=== PATIENT | female | born 1955 | race Caucasian/White ===

== ENCOUNTER → 2020-04-15 10:21 | Outpatient (BNVA) | payer MEDICARE, MEDICAID, SELFPAY | PROVIDERS: PCP Family Medicine; Referring Provider Family Medicine; Visit Provider Internal Medicine Endocrinology, Diabetes & Metabolism | DX: E11.65 Type 2 diabetes mellitus with hyperglycemia (principal); Z79.4 Long term (current) use of insulin; E78.5 Hyperlipidemia, unspecified; I10 Essential (primary) hypertension; E66.9 Obesity, unspecified; Z68.31 Body mass index [BMI] 31.0-31.9, adult; M85.80 Other specified disorders of bone density and structure, unspecified site | CPT/HCPCS: 82947; 95250; 99214 ==

== ENCOUNTER → 2020-05-03 11:13 | Outpatient (BNVA) | payer MEDICARE, MEDICAID, SELFPAY | PROVIDERS: PCP Family Medicine; Referring Provider Family Medicine; Visit Provider Internal Medicine Endocrinology, Diabetes & Metabolism | DX: Z76.89 Persons encountering health services in other specified circumstances (principal) ==

== ENCOUNTER → 2020-05-13 09:35 | Outpatient (BNVA) | payer MEDICARE, MEDICAID, SELFPAY | PROVIDERS: PCP Internal Medicine; Referring Provider Internal Medicine; Visit Provider Internal Medicine Endocrinology, Diabetes & Metabolism | DX: E11.65 Type 2 diabetes mellitus with hyperglycemia (principal); Z79.4 Long term (current) use of insulin; E78.5 Hyperlipidemia, unspecified; I10 Essential (primary) hypertension; E66.9 Obesity, unspecified; M85.80 Other specified disorders of bone density and structure, unspecified site | CPT/HCPCS: 99212 ==

== ENCOUNTER 2020-09-02 08:02 | Emergency (ER) | payer MEDICARE, MEDICAID, SELFPAY ==
[2020-09-02 08:05] VITALS: BP 151/107; PULSE 84; RESP 12; TEMP 36.8; O2SAT 95; BMI 30.4
[2020-09-02 08:30] LABS: Glucose, Whole Blood 266 mg/dL (60-115)
[2020-09-02 08:49] VITALS: BP 120/79; PULSE 83; RESP 18; O2SAT 96
--- NOTE | 2020-09-02 08:49 | ED.GENADULT ---
HPI - General Adult General Chief complaint: General Medical Stated complaint: hbs, covid + 3 weeks ago Time Seen by Provider: 09/02/20 08:21 Source: patient Mode of arrival: ambulatory Limitations: no limitations History of Present Illness HPI narrative: 64-year-old female with a past medical history of diabetes type 2 currently on long-term use insulin, hypertension, dyslipidemia, obesity, fibromyalgia, anxiety, depression, osteopenia vitamin-D deficiency presenting to the ED with complaints of elevated glucose in the 300s over the past few days despite taking her dose of Trulicity every Sunday although she is unsure of the dosing although it was recently increased to 3 mg she believes. She reports she gets associated headaches when her blood glucose gets elevated in the 300s. Reports that she was discontinued off of metformin due to it was causing her abdominal pain and diarrhea. Reports she is not prescribed any other oral or insulin diabetic medications at this time. Denies any other symptoms complaints or concerns at this time. Reports that she has not seen her doctor in over 6 months to year due to she was diagnosed with COVID on August 15, 2020 and they had to reschedule. complaint: Elevated glucose Onset (ago): day(s) (Today) Related Data Home Medications Medication Instructions Recorded Confirmed alcohol swabs pad TOPICAL 04/15/20 05/13/20 blood sugar diagnostic #10 ea 04/15/20 05/13/20 cetirizine 10 mg tablet 10 mg PO DAILY 04/15/20 05/13/20 cromolyn 4 % eye drops drp OPHTHALMIC (EYE) 04/15/20 05/13/20 duloxetine 60 mg capsule,delayed 60 mg PO DAILY 04/15/20 05/13/20 release fluticasone propionate 50 INTRANASAL 04/15/20 05/13/20 mcg/actuation nasal spray,suspension lancets 33 gauge #100 ea 04/15/20 05/13/20 omeprazole 20 mg capsule,delayed mg PO 04/15/20 05/13/20 release clonidine HCl 0.1 mg tablet 0.1 mg PO BEDTIME 05/03/20 05/13/20 topiramate 25 mg tablet 25 mg PO DAILY 05/03/20 05/13/20 Previous Rx's Medication Instructions Recorded blood-glucose meter #1 ea 05/11/20 blood-glucose meter #1 ea 05/13/20 insulin lispro protamine-lispro 15 unit SUBCUT BID 30 Days #15 ml 05/13/20 100 unit/mL (50-50) subcutaneous pen pen needle, diabetic 32 gauge x #100 ea 05/13/20 insulin aspar prot-insulin aspart 15 unit SUBCUT BID 30 Days #9 ml 05/14/20 100 unit/mL (70-30) subcutaneous pen pravastatin 40 mg tablet 40 mg PO DAILY 90 Days #90 tab 05/14/20 cholecalciferol (vitamin D3) 50 50 mcg PO DAILY 30 Days #30 cap 06/08/20 mcg (2,000 unit) capsule blood sugar diagnostic #100 ea 06/30/20 lancets 28 gauge #100 ea 06/30/20 dulaglutide 3 mg/0.5 mL 3 mg SUBCUT QWEEK 30 Days #2.5 ml 08/30/20 subcutaneous pen injector insulin glargine [Lantus Solostar 20 unit SUBCUT QPM #15 ml 09/02/20 U-100 Insulin] Allergies Allergy/AdvReac Type Severity Reaction Status Date / Time latex [LATEX] Allergy Intermediate RASH Verified 09/02/20 08:58 risedronate sodium Allergy Unknown Unknown Verified 09/02/20 08:58 fiberglass Allergy Unknown Unknown Uncoded 09/02/20 08:58 latex Allergy Unknown Unknown Uncoded 09/02/20 08:58 PLASTIC Allergy Unknown UNKNOWN Uncoded 03/18/20 16:22 statins Allergy Unknown Unknown Uncoded 09/02/20 08:58 Review of Systems Review of Systems: Constitutional : No change in activity, and no lethargy, no recent prior head injury, no increased agitation or unable to focus, No Weight loss, No Fever, No Chills, No Night Sweats, No Fatigue, No Malaise ENT/Mouth : No Hearing loss, No Ear Pain, No Nasal Congestion, No Sinus Pain, No Hoarseness, No sore throat, No Rhinorrhea, No Swallowing Difficulty Eyes: No Eye Pain, No Swelling, No Redness, No Foreign Body, No Discharge, No Vision Changes Cardiovascular : No Chest Pain, No SOB, No Dyspnea on Exertion, No Orthopnea, No Edema, No Palpitations Respiratory : No Cough, No Sputum, No Wheezing, No Smoke Exposure, No Dyspnea Gastrointestinal : No Nausea, No Vomiting, No Diarrhea, No Constipation, No abdominal Pain, No Hematochezia, No Melena Genitourinary : no irregular bleeding, No Dysuria, No Urinary Frequency, No Hematuria, No Urinary Incontinence, No Urgency, No Flank Pain, No Urinary Flow Changes, No Hesitancy Musculoskeletal : No joint pain, No Myalgias, No Joint Swelling Skin : No Skin Lesions, No rash Neuro : + Headache, no unsteady gait, no altered mental status, No Weakness, No Numbness, No Paresthesias, No Loss of Consciousness, No Dizziness, No Headache Psych : No Anxiety/Panic, No Depression, No SI/HI/AH/VH, No Social Issues, Heme/Lymph: No Bruising, No Bleeding,No Lymphadenopathy Endocrine : No Polyuria, No Polydipsia, No Temperature Intolerance Denies past medical history of HIV, recent trauma, coagulopathy, recent spinal/ epidural procedure, new medication, URI symptoms, close contacts with similar symptoms, tick bite, or known CO2 exposure. Yes all other systems are reviewed and are negative PMFSH Past Medical History Attestation statement: The following information was validated with the patient. Medical History Anxiety Depression Diabetes type 2, uncontrolled Dyslipidemia Fibromyalgia Hypertension correction (current) use of insulin Obesity (BMI 30-39.9) Osteopenia Vitamin D deficiency Surgical History History of partial hysterectomy Hx of colonoscopy Hx of tubal ligation Family History Family History Father Heart disease Diabetes Mother Diabetes Arthritis Social History Social History Smoking Status: Former smoker Tobacco Type: Cigarette Years Smoked: 10 Smoked in Last 30 Days: No Use of substances other than those prescribed or required for medical reasons: No Advance Directives: No Advance Directives Information Provided: No Physical Exam Vital Signs: Vital Signs: Last Vital Signs Temp 98.3 F 09/02/20 08:05 Pulse 83 09/02/20 08:49 Resp 18 09/02/20 08:49 BP 120/79 09/02/20 08:49 Pulse Ox 96 09/02/20 08:49 Body Mass Index 30.4 Vital signs have been reviewed as normal and appeared to be correct. Blood pressure normal. Heart rate hypertensive at 151/107. Respiration rate normal. Temperature normal. Oxygen saturation normal. Appearance: Alert. Oriented X3. No acute distress. Head: Normal external exam. Normocephalic. Atraumatic. Able to rotate head bilaterally. No temporal tenderness noted. Eyes: PERRLA. EOMI. No nystagmus noted. Conjunctiva and sclera normal. Eyelids normal. Corneal reflex normal. ENT: EAC normal. TM's Normal. Hearing normal. Pharynx normal. Uvula midline. tongue midline. Moist mucous membranes. No trismus noted. No drooling noted. No muffled voice noted. No nystagmus noted. Neck: Normal inspection. Neck supple. FROM. No adenopathy. Trachea midline. Thyroid Normal. No meningeal signs. No neck mass noted. CVS: Normal heart rate and rhythm. Heart sound normal. No murmurs noted. Pulses normal throughout. Respiratory: No respiratory distress. Painless inspiration. Breath sounds normal. No wheezes/rales/rhonchi noted. Chest nontender. No accessory muscle usage noted or decreased air movement noted. Abdomen: Soft and nontender. Bowel sounds normal in all 4 quadrants. No distention noted. No organomegaly noted. No visible injury noted. Back: No CVA tenderness. Full range of motion noted. Skin: Skin warm and dry. Normal skin color. Normal skin turgor. No rashes/lesions/lacerations noted. Extremities: No lower extremity edema. Extremities exhibit normal range of motion. Extremities nontender. Able to shrug shoulders bilaterally and keep up against resistance. Neuro: Oriented X 3. No motor deficit. No sensory deficit. Reflexes normal. Moving all extremities. No focal motor deficits. Cranial nerves II-XI intact bilaterally. Facial strength normal. Normal cognition. Speech normal. Gait normal. Strength 5/5 throughout. No pronator drift. No tremor noted. No fasciculations noted. No rigidity noted. Muscle tone normal throughout. No asterixis noted. Course Course Course Narrative: 8:45am - 64-year-old female with a past medical history of diabetes type 2 currently on long-term use insulin, hypertension, dyslipidemia, obesity, fibromyalgia, anxiety, depression, osteopenia vitamin-D deficiency presenting to the ED with complaints of elevated glucose in the 300s over the past few days despite taking her dose of Trulicity every Sunday with associated intermittent headaches. - I reviewed the patient's chart and it appears that she followed up with her gas regulator repairer on 05/13/2020 and patient decided she did not want to be on metformin due to causing her abdominal pain diarrhea, Jardiance 25 mg was stopped due to UTI and yeast infections. She was also on Lantus 22 units at bedtime although I spoke to the patient's gas regulator repairer Dr. Ting Celis who reported that the patient in May did not want to take the Lantus therefore she discontinued the dentist herself not the gas regulator repairer. Recently her PCP called the gas regulator repairer and reported that the patient's blood glucose levels were still elevated despite taking the Trulicity 1.5 mg actually every not Sunday there for 2-3 days ago the gas regulator repairer called her and explained to her that she needed to increase the dose of 3 mg although this was after she attempted to call her over multiple days. The gas regulator repairer reports that the patient is very on compliant. The gas regulator repairer reported that I can start the patient back on 20 units of Lantus at bedtime and the patient continue to follow-up with her. - On exam patient is alert and oriented x3. Mildly hypertensive at 151/107 although when recheck that is now at 120/79. No focal neuro deficits noted. Not in any acute distress. POC is 266. - Plan: Labs, UA. Provide Tylenol for her headache. Once labs are back we will discuss with the patient's about starting her back on Lantus 20 units at bedtime which was discussed with the gas regulator repairer. Reevaluation(s) Reevaluation #1: - when I went back into the patient's room she had left due to her was outside and she did not want to wait any longer although I was not notified. - therefore called the patient in her house phone and she picked up she reported she had to go due to her ride was outside I explained to her that all her labs were pretty much within normal limits except for her blood glucose level which was 266. Although I discussed with her that I spoke to her gas regulator repairer and we were starting the patient back on Lantus 20 units at bedtime every night and that she can roller picker the prescription at [facility]. Patient understands that she will be started back on Lantus and she will roller picker the prescription today. I explained to the patient to follow-up with her PCP and her gas regulator repairer and she understood and agree with this plan. Explained to her to return if any new or worsening symptoms and she understood. Time: 10:27 Medical Decision Making Medical Records Medical records reviewed: Yes I reviewed the patient's medical records. Lab Data Lab results reviewed: Yes I reviewed the patient's lab results. Result diagrams: 09/02/20 08:53 09/02/20 08:53 Labs: Lab Results 09/02/20 09/02/20 09/02/20 Range/Units 08:27 08:53 08:53 WBC 5.8 (4.8-10.8) X10*3/uL RBC 4.06 L (4.20-5.50) X10*6/uL Hgb 12.5 (12.0-16.0) g/dl Hct 36.6 L (37-47) % MCV 90.1 (80-98) fL MCH 30.8 (27.0-33.0) pg MCHC 34.2 (31.0-35.0) g/dl RDW 12.7 (11.0-16.0) % Plt Count 278 (160-400) X10*3/uL MPV 10.3 (9.4-12.3) fL Immature Gran % (Auto) 0.3 (0.0-0.4) % Neut % (Auto) 64.6 (45-73) % Lymph % (Auto) 26.4 (20-40) % Sumner % (Auto) 8.2 (2-11) % Eos % (Auto) 0.3 (0-4) % Baso % (Auto) 0.2 (0-2) % Lymph # (Auto) 1.5 (1.2-4.9) X10*3/uL Sumner # (Auto) 0.5 (0.1-1.2) X10*3/uL Eos # (Auto) 0.0 (0.0-0.4) X10*3/uL Baso # (Auto) 0.0 (0.0-0.2) X10*3/uL Abs Immat Gran (auto) 0.02 (0.00-0.03) X10*3/uL Absolute Neuts (auto) 3.8 (2.0-8.3) X10*3/uL Absolute Nucleated RBC 0.000 (0.0-0.012) X10*3/uL Nucleated RBC % (auto) 0.0 (0.0-0.2) /100WBC Smear Tech's Comments VERIFIED Hold Purple Top SEE NOTE Sodium (135-145) mmol/L Potassium (3.3-5.1) mmol/L Chloride (96-108) mmol/L Carbon Dioxide (22-29) mmol/L Anion Gap (12-20) BUN (9-16) mg/dL Creatinine (0.5-1.4) mg/dL Estim Creat Clear Calc Estimated GFR POC Glucose 266 H (60-115) mg/dL Random Glucose (60-115) mg/dL Calcium (8.4-10.2) mg/dL Magnesium (1.6-2.6) mg/dL Total Bilirubin (0.0-1.0) mg/dL Direct Bilirubin (0.0-0.5) mg/dL AST (5-31) U/L ALT (0-31) U/L Alkaline Phosphatase (39-117) U/L Total Protein (6.5-8.0) g/dL Albumin (3.5-5.0) g/dL 09/02/20 Range/Units 08:53 WBC (4.8-10.8) X10*3/uL RBC (4.20-5.50) X10*6/uL Hgb (12.0-16.0) g/dl Hct (37-47) % MCV (80-98) fL MCH (27.0-33.0) pg MCHC (31.0-35.0) g/dl RDW (11.0-16.0) % Plt Count (160-400) X10*3/uL MPV (9.4-12.3) fL Immature Gran % (Auto) (0.0-0.4) % Neut % (Auto) (45-73) % Lymph % (Auto) (20-40) % Sumner % (Auto) (2-11) % Eos % (Auto) (0-4) % Baso % (Auto) (0-2) % Lymph # (Auto) (1.2-4.9) X10*3/uL Sumner # (Auto) (0.1-1.2) X10*3/uL Eos # (Auto) (0.0-0.4) X10*3/uL Baso # (Auto) (0.0-0.2) X10*3/uL Abs Immat Gran (auto) (0.00-0.03) X10*3/uL Absolute Neuts (auto) (2.0-8.3) X10*3/uL Absolute Nucleated RBC (0.0-0.012) X10*3/uL Nucleated RBC % (auto) (0.0-0.2) /100WBC Smear Tech's Comments Hold Purple Top Sodium 135 (135-145) mmol/L Potassium 4.1 (3.3-5.1) mmol/L Chloride 99 (96-108) mmol/L Carbon Dioxide 26 (22-29) mmol/L Anion Gap 14 (12-20) BUN 9 (9-16) mg/dL Creatinine 0.77 (0.5-1.4) mg/dL Estim Creat Clear Calc 60.4 Estimated GFR > 60 POC Glucose (60-115) mg/dL Random Glucose 280 H (60-115) mg/dL Calcium 8.7 (8.4-10.2) mg/dL Magnesium 1.6 (1.6-2.6) mg/dL Total Bilirubin 0.8 (0.0-1.0) mg/dL Direct Bilirubin 0.2 (0.0-0.5) mg/dL AST 18 (5-31) U/L ALT 19 (0-31) U/L Alkaline Phosphatase 57 (39-117) U/L Total Protein 6.1 L (6.5-8.0) g/dL Albumin 3.6 (3.5-5.0) g/dL Critical Care Time Critical Care Time Critical Care Time: Yes Total Critical Care Time: 60 Attestation: I personally attest to this time spent taking care of the patient Discharge Plan Discharge Clinical Impression: Diabetes type 2, uncontrolled, Hyperglycemia Patient Disposition: Home, Self-Care Instructions: Diabetes and Exercise (ED) Prescriptions: New Lantus Solostar U-100 Insulin 100 unit/mL (3 mL) insulin pen 20 unit subcut QPM Qty: 15 RF: 0 No Action (DME) blood-glucose meter [FreeStyle Lite Meter] Kit See Rx Instructions .ROUTE .MEDSUPPLY Qty: 1 RF: 0 cholecalciferol (vitamin D3) 50 mcg (2,000 unit) capsule 50 mcg PO DAILY 30 Days Qty: 30 RF: 6 (DME) lancets [FreeStyle Lancets] 28 gauge misc See Rx Instructions .ROUTE .MEDSUPPLY Qty: 100 RF: 4 (DME) FreeStyle Lite Strips Strip See Rx Instructions .ROUTE .MEDSUPPLY Qty: 100 RF: 11 Trulicity 3 mg/0.5 mL pen injector 3 mg subcut QWEEK 30 Days Qty: 2.5 RF: 6 alcohol swabs Pads, Medicated topical RF: 0 duloxetine 60 mg capsule,delayed release(DR/EC) 60 mg PO DAILY RF: 0 (DME) FreeStyle Lite Strips Strip See Rx Instructions ea Not Applicable TID Qty: 10 RF: 0 cetirizine 10 mg tablet 10 mg PO DAILY RF: 0 fluticasone propionate 50 mcg/actuation spray,suspension intranasal RF: 0 omeprazole 20 mg capsule,delayed release(DR/EC) PO RF: 0 (DME) lancets 33 gauge misc See Rx Instructions ea Not Applicable TID Qty: 100 RF: 0 cromolyn 4 % drops ophthalmic (eye) RF: 0 clonidine HCl 0.1 mg tablet 0.1 mg PO BEDTIME RF: 0 topiramate 25 mg tablet 25 mg PO DAILY RF: 0 Humalog Mix 50-50 KwikPen 100 unit/mL (50-50) insulin pen 15 unit subcut BID 30 Days Qty: 15 RF: 4 (DME) pen needle, diabetic 32 gauge x 5/32 needle See Rx Instructions ea .ROUTE .MEDSUPPLY Qty: 100 RF: 4 (DME) blood-glucose meter [FreeStyle Lite Meter] Kit See Rx Instructions .ROUTE .MEDSUPPLY Qty: 1 RF: 0 insulin asp prt-insulin aspart [Novolog Mix 70-30FlexPen U-100] 100 unit/mL (70-30) insulin pen 15 unit subcut BID 30 Days Qty: 9 RF: 6 pravastatin 40 mg tablet 40 mg PO DAILY 90 Days Qty: 90 RF: 2 Referrals: Madisyn Wolf MD [Primary Care Provider] - 2 days Print Language: Kazakh
[2020-09-02] MEDS: Acetaminophen 325 MG TABLET 650 MG PO (08:56)
[2020-09-02 09:02] LABS: Basophils Percent Auto 0.2 % (0-2); Eosinophils Percent Auto 0.3 % (0-4); Hematocrit 36.6 % (37-47); Hemoglobin 12.5 g/dl (12.0-16.0); Imm Gran Abs Auto 0.02 X10*3/uL (0.00-0.03); Imm Gran Pct Auto 0.3 % (0.0-0.4); Lymphocytes Absolute Auto 1.5 X10*3/uL (1.2-4.9); Lymphocytes Percent Auto 26.4 % (20-40); MANUAL DIFF FLAG SCAN; Mean Corpuscular HGB Conc 34.2 g/dl (31.0-35.0); Mean Corpuscular Hemoglobin 30.8 pg (27.0-33.0); Mean Corpuscular Volume 90.1 fL (80-98); Mean Platelet Volume 10.3 fL (9.4-12.3); Monocytes Absolute Auto 0.5 X10*3/uL (0.1-1.2); Monocytes Percent Auto 8.2 % (2-11); Neutrophils Absolute Auto 3.8 X10*3/uL (2.0-8.3); Neutrophils Percent Auto 64.6 % (45-73); Platelet Count 278 X10*3/uL (160-400); Red Blood Count 4.06 X10*6/uL (4.20-5.50); Red Cell Distribution Width 12.7 % (11.0-16.0); SCAN SMEAR FLAG 1; White Blood Count 5.8 X10*3/uL (4.8-10.8)
[2020-09-02 09:40] LABS: Alanine Aminotransferase 19 U/L (0-31); Albumin Level 3.6 g/dL (3.5-5.0); Alkaline Phosphatase 57 U/L (39-117); Anion Gap 14 (12-20); Aspartate Amino Transferase 18 U/L (5-31); Bilirubin Direct 0.2 mg/dL (0.0-0.5); Bilirubin Total 0.8 mg/dL (0.0-1.0); Blood Urea Nitrogen 9 mg/dL (9-16); Calcium 8.7 mg/dL (8.4-10.2); Carbon Dioxide 26 mmol/L (22-29); Chloride 99 mmol/L (96-108); Creatinine Clr Calc Pharmacy 60.4; Estimated Glomerular Filt Rate > 60; Glucose Random 280 mg/dL (60-115); Magnesium 1.6 mg/dL (1.6-2.6); Potassium 4.1 mmol/L (3.3-5.1); Sodium 135 mmol/L (135-145); Total Protein 6.1 g/dL (6.5-8.0)
[2020-09-02 09:41] LABS: SLIDE REVIEW VERIFIED
[2020-09-02 10:47] LABS: Glucose Urine UA >=1000 MG/DL (NEG); Leukocyte Esterase Urine NEG (NEG); Nitrite Urine NEG (NEG); PH 6.5 (5.0-8.0); Urine Blood NEG (NEG); Urine Ketones 40 MG/DL (NEG); Urine Protein NEG (NEG-TRACE)
[2020-09-02 10:49] LABS: Appearance Urine HAZY; Color Urine YELLOW
[2020-09-02 10:54] LABS: Mucus Urine TRACE /LPF; RBC Urine 0 /HPF (0); Squamous Epithelial Cell Urine 1+ /LPF; WBC Urine 0 /HPF (0-4)
== END 2020-09-02 10:40 | disposition home or self-care (01) ==
PROVIDERS: Physician Assistant Medical; Emergency Provider Emergency Medicine; PCP Family Medicine
DX: E11.65 Type 2 diabetes mellitus with hyperglycemia (principal); R51.9 Headache, unspecified; I10 Essential (primary) hypertension; Z87.891 Personal history of nicotine dependence; Z79.01 Long term (current) use of anticoagulants; Z79.899 Other long term (current) drug therapy; Z86.16 Personal history of COVID-19
CPT/HCPCS: 36415; 80048; 80076; 81001; 82947; 83735; 85025; 99284; 99285

== ENCOUNTER → 2020-10-29 10:47 | Outpatient (BNVA) | payer MEDICARE, MEDICAID, SELFPAY | PROVIDERS: PCP Family Medicine; Visit Provider Internal Medicine Endocrinology, Diabetes & Metabolism | DX: E11.65 Type 2 diabetes mellitus with hyperglycemia (principal); E66.9 Obesity, unspecified; Z68.29 Body mass index [BMI] 29.0-29.9, adult; E78.5 Hyperlipidemia, unspecified; I10 Essential (primary) hypertension; Z91.19 Patient's noncompliance with other medical treatment and regimen; Z79.4 Long term (current) use of insulin; Z71.3 Dietary counseling and surveillance | CPT/HCPCS: 82947; 99212 ==

== ENCOUNTER → 2021-03-23 10:58 | Outpatient (BNVA) | payer MEDICARE, MEDICAID, SELFPAY | PROVIDERS: PCP Family Medicine; Visit Provider Nurse Practitioner Gerontology | CPT/HCPCS: Q3014 ==

== ENCOUNTER 2023-03-31 12:12 | Emergency (ER) | payer MEDICARE, MEDICAID, SELFPAY ==
--- NOTE | ~2023-03-31 | XR_ITS ---
EXAMINATION: XR CHEST CLINICAL INFORMATION: Shortness of breath COMPARISON: Previous chest x-ray report was recent August 2009. Images not available at this time. TECHNIQUE: 2 views of the chest were obtained. FINDINGS: No significant abnormality is noted involving the heart, lungs, mediastinum, bony thorax or soft tissues. Degenerative changes of the spine. XR/XR chest 2V IMPRESSION: No evidence for acute disease in the chest.
[2023-03-31 12:18] VITALS: BP 122/67; PULSE 91; RESP 18; TEMP 37.1; O2SAT 98; BMI 23.4
--- NOTE | 2023-03-31 12:18 | ED_ITS ---
HPI - General Adult General Chief complaint: Upper Respiratory Symptoms Stated complaint: SOB for weeks Time Seen by Provider: 03/31/23 12:41 Related Data Home Medications Medication Instructions Recorded Confirmed alcohol swabs pad topical 04/15/20 03/23/21 blood sugar diagnostic #10 ea 04/15/20 03/23/21 cetirizine 10 mg tablet 10 mg PO DAILY 04/15/20 03/23/21 cromolyn 4 % eye drops drp ophthalmic (eye) 04/15/20 03/23/21 duloxetine 60 mg capsule,delayed 60 mg PO DAILY 04/15/20 03/23/21 release fluticasone propionate 50 intranasal 04/15/20 03/23/21 mcg/actuation nasal spray,suspension lancets 33 gauge #100 ea 04/15/20 03/23/21 topiramate 25 mg tablet 25 mg PO DAILY 05/03/20 03/23/21 clonidine HCl 0.1 mg tablet 0.1 mg PO BEDTIME 03/23/21 03/23/21 duloxetine 30 mg capsule,delayed 30 mg PO BEDTIME 03/23/21 03/23/21 release gabapentin 100 mg capsule mg PO 03/23/21 03/23/21 lisinopril 2.5 mg tablet 2.5 mg PO DAILY 03/23/21 03/23/21 naproxen 500 mg tablet 500 mg PO BID 03/23/21 03/23/21 omeprazole 20 mg capsule,delayed 20 mg PO 03/23/21 03/23/21 release Previous Rx's Medication Instructions Recorded blood-glucose meter (FreeStyle #1 ea 05/11/20 Lite Meter kit) blood-glucose meter (FreeStyle #1 ea 05/13/20 Lite Meter kit) pen needle, diabetic 32 gauge x #100 ea 05/13/20 pen needle, diabetic 32 gauge x #50 ea 09/02/20 (BD Dianelys 2nd Gen Pen Needle) Lantus Solostar U-100 Insulin 100 22 unit (0.22 mL) subcut QPM 30 03/23/21 unit/mL (3 mL) subcutaneous pen days #6.6 mL (insulin glargine) cholecalciferol (vitamin D3) 25 25 mcg PO DAILY #30 caps 09/26/21 mcg (1,000 unit) capsule dulaglutide 1.5 mg/0.5 mL 1.5 mg (0.5 mL) subcut QWEEK 30 10/14/21 subcutaneous pen injector days #2.5 mL (Trulicity) blood sugar diagnostic (FreeStyle 1 strip miscellaneous QID for 11/30/21 Lite Strips) diabetes mellitus #100 strips lancets 33 gauge (TRUEplus Lancets) 1 gauge miscellaneous QID for 11/30/21 diabetes mellitus #100 ea Allergies Allergy/AdvReac Type Severity Reaction Status Date / Time latex [LATEX] Allergy Intermediate RASH Verified 09/02/20 08:58 risedronate sodium Allergy Unknown Unknown Verified 09/02/20 08:58 fiberglass Allergy Unknown Unknown Uncoded 09/02/20 08:58 latex Allergy Unknown Unknown Uncoded 09/02/20 08:58 PLASTIC Allergy Unknown UNKNOWN Uncoded 03/18/20 16:22 statins Allergy Unknown Unknown Uncoded 09/02/20 08:58 PMFSH Past Medical History Medical History Non-adherence to medical treatment Vitamin D deficiency Fibromyalgia Depression Anxiety Osteopenia Obesity (BMI 30-39.9) Hypertension 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 Plan for labs, UA, chest x-ray and flu swab Medications Administered Discontinued Medications Generic Name Dose Route Start Last Admin Trade Name Freq PRN Reason Stop Dose Admin Sodium Chloride 1,000 mls @ 999 mls/hr 03/31/23 12:58 03/31/23 14:27 Ns IV 03/31/23 13:58 Infused .Q1H1M ONE Infusion Medical Decision Making Lab Data 03/31/23 12:53 03/31/23 12:53 Labs: Lab Results 03/31/23 Range/Units 12:53 WBC 10.0 (4.8-10.8) X10*3/uL RBC 4.15 L (4.20-5.50) X10*6/uL Hgb 13.3 (12.0-16.0) g/dl Hct 38.6 (37.0-47.0) % MCV 93.0 (80.0-98.0) fL MCH 32.0 (27.0-33.0) pg MCHC 34.5 (31.0-35.0) g/dl RDW 13.4 (11.0-16.0) % Plt Count 308 (160-400) X10*3/uL MPV 9.9 (9.4-12.3) fL Immature Gran % (Auto) 0.3 (0.0-0.4) % Neut % (Auto) 62.1 (45-73) % Lymph % (Auto) 27.0 (20-40) % [place]berry % (Auto) 8.2 (2-11) % Eos % (Auto) 1.8 (0-4) % Baso % (Auto) 0.6 (0-2) % Lymph # (Auto) 2.7 (1.2-4.9) X10*3/uL [place]berry # (Auto) 0.8 (0.1-1.2) X10*3/uL Eos # (Auto) 0.2 (0.0-0.4) X10*3/uL Baso # (Auto) 0.1 (0.0-0.2) X10*3/uL Abs Immat Gran (auto) 0.03 (0.00-0.03) X10*3/uL Absolute Neuts (auto) 6.2 (2.0-8.3) x10*3/uL Absolute Nucleated RBC 0.000 (0.0-0.012) X10*3/uL Nucleated RBC % (auto) 0.0 (0.0-0.2) /100WBC Sodium 138 (135-145) mmol/L Potassium 3.7 (3.3-5.1) mmol/L Chloride 102 (96-108) mmol/L Carbon Dioxide 26 (22-29) mmol/L Anion Gap 14 (12-20) BUN 7 L (9-16) mg/dL Creatinine 0.77 (0.5-1.4) mg/dL Estim Creat Clear Calc 49.5 Estimated GFR > 60 Random Glucose 229 H (60-115) mg/dL Calcium 9.8 D (8.4-10.2) mg/dL Total Bilirubin 0.4 (0.0-1.0) mg/dL AST 18 (5-31) U/L ALT 17 (0-31) U/L Alkaline Phosphatase 59 (39-117) U/L Total Protein 6.9 (6.5-8.0) g/dL Albumin 3.9 (3.5-5.0) g/dL Lipase 25 (8-78) U/L Urine Color Yellow Urine Appearance Clear Urine pH 6.0 (5.0-9.0) Ur Specific Sidney 1.020 (1.005-1.025) Urine Protein Negative (Neg-Trace) mg/dL Urine Glucose (UA) 500 H (Negative) mg/dL Urine Ketones Negative (Negative) mg/dL Urine Blood Negative (Negative) Urine Nitrite Negative (Negative) Ur Leukocyte Esterase Negative (Negative) Urine RBC 3-5 H (0-2) /HPF Urine WBC 0-5 (0-5) /HPF Ur Squamous Epith Cells 0-2 (0-2) /HPF Urine Bacteria None Seen (None Seen) Hyaline Casts 0-2 (0-2) /LPF COVID-19 (SAILAJA) Negative (Negative) COVID-19 Clin Com See Note Influenza Type A (JIM) Negative (Negative) Influenza Type B (JIM) Negative (Negative) Influenza A & B Note See Note Discharge Plan Discharge Clinical Impression: Generalized weakness Patient Disposition: Home, Self-Care Instructions: Weakness (ED) Prescriptions: No Action (DME) blood-glucose meter [FreeStyle Lite Meter] Kit See Rx Instructions .ROUTE .MEDSUPPLY Qty: 1 0RF Rx Instructions: As directed (DME) pen needle, diabetic [BD Dianelys 2nd Gen Pen Needle] 32 gauge x 5/32 needle See Rx Instructions .MEDSUPPLY Qty: 50 4RF Rx Instructions: once a day cholecalciferol (vitamin D3) 25 mcg (1,000 unit) capsule 25 mcg PO DAILY Qty: 30 11RF Trulicity 1.5 mg/0.5 mL pen injector 1.5 mg subcut QWEEK 30 Days Qty: 2.5 6RF FreeStyle Lite Strips Strip 1 strip miscellaneous QID Qty: 100 11RF lancets [TRUEplus Lancets] 33 gauge misc 1 gauge miscellaneous QID Qty: 100 11RF alcohol swabs Pads, Medicated topical duloxetine 60 mg capsule,delayed release(DR/EC) 60 mg PO DAILY (DME) FreeStyle Lite Strips Strip See Rx Instructions Not Applicable TID Qty: 10 Rx Instructions: As directed cetirizine 10 mg tablet 10 mg PO DAILY fluticasone propionate 50 mcg/actuation spray,suspension intranasal (DME) lancets 33 gauge misc See Rx Instructions Not Applicable TID Qty: 100 Rx Instructions: As directed cromolyn 4 % drops ophthalmic (eye) omeprazole 20 mg capsule,delayed release(DR/EC) 20 mg PO topiramate 25 mg tablet 25 mg PO DAILY (DME) pen needle, diabetic 32 gauge x 5/32 needle See Rx Instructions .ROUTE .MEDSUPPLY Qty: 100 4RF Rx Instructions: Twice a day (DME) blood-glucose meter [FreeStyle Lite Meter] Kit See Rx Instructions .ROUTE .MEDSUPPLY Qty: 1 0RF Rx Instructions: 4 times a day lisinopril 2.5 mg tablet 2.5 mg PO DAILY duloxetine 30 mg capsule,delayed release(DR/EC) 30 mg PO BEDTIME clonidine HCl 0.1 mg tablet 0.1 mg PO BEDTIME gabapentin 100 mg capsule PO naproxen 500 mg tablet 500 mg PO BID Lantus Solostar U-100 Insulin 100 unit/mL (3 mL) insulin pen 22 unit subcut QPM 30 Days Qty: 6.6 6RF Referrals: Madisyn Wolf MD [Primary Care Provider] - Interventions: ED Discharge Assessment Last Done: 03/31/23 15:55 Discharge Date/Time: 03/31/23 15:55
--- NOTE | 2023-03-31 12:59 | ED_ITS ---
HPI - URI/Sore Throat General Chief Complaint: Upper Respiratory Symptoms Stated Complaint: SOB for weeks Time Seen by Provider: 03/31/23 12:41 Source: patient Mode of arrival: ambulatory Limitations: no limitations History of Present Illness HPI Narrative: 67-year-old female history of diabetes type still on Trulicity the patient admit that she is not compliant with her medication, came in today with a generalized body ache, sore throat, and difficulty breathing with coughing. No sick contacts, no recent travel. Patient also thinking she is dehydrated because she is not eating or drinking well. Related Data Home Medications Medication Instructions Recorded Confirmed alcohol swabs pad topical 04/15/20 03/23/21 blood sugar diagnostic #10 ea 04/15/20 03/23/21 cetirizine 10 mg tablet 10 mg PO DAILY 04/15/20 03/23/21 cromolyn 4 % eye drops drp ophthalmic (eye) 04/15/20 03/23/21 duloxetine 60 mg capsule,delayed 60 mg PO DAILY 04/15/20 03/23/21 release fluticasone propionate 50 intranasal 04/15/20 03/23/21 mcg/actuation nasal spray,suspension lancets 33 gauge #100 ea 04/15/20 03/23/21 topiramate 25 mg tablet 25 mg PO DAILY 05/03/20 03/23/21 clonidine HCl 0.1 mg tablet 0.1 mg PO BEDTIME 03/23/21 03/23/21 duloxetine 30 mg capsule,delayed 30 mg PO BEDTIME 03/23/21 03/23/21 release gabapentin 100 mg capsule mg PO 03/23/21 03/23/21 lisinopril 2.5 mg tablet 2.5 mg PO DAILY 03/23/21 03/23/21 naproxen 500 mg tablet 500 mg PO BID 03/23/21 03/23/21 omeprazole 20 mg capsule,delayed 20 mg PO 03/23/21 03/23/21 release Previous Rx's Medication Instructions Recorded blood-glucose meter (FreeStyle #1 ea 05/11/20 Lite Meter kit) blood-glucose meter (FreeStyle #1 ea 05/13/20 Lite Meter kit) pen needle, diabetic 32 gauge x #100 ea 05/13/20 pen needle, diabetic 32 gauge x #50 ea 03/04/21 5/32 (BD Dianelys 2nd Gen Pen Needle) Lantus Solostar U-100 Insulin 100 22 unit (0.22 mL) subcut QPM 30 03/23/21 unit/mL (3 mL) subcutaneous pen days #6.6 mL (insulin glargine) cholecalciferol (vitamin D3) 25 25 mcg PO DAILY #30 caps 09/26/21 mcg (1,000 unit) capsule dulaglutide 1.5 mg/0.5 mL 1.5 mg (0.5 mL) subcut QWEEK 30 10/14/21 subcutaneous pen injector days #2.5 mL (Trulicity) blood sugar diagnostic (FreeStyle 1 strip miscellaneous QID for 11/30/21 Lite Strips) diabetes mellitus #100 strips lancets 33 gauge (TRUEplus Lancets) 1 gauge miscellaneous QID for 11/30/21 diabetes mellitus #100 ea Allergies Allergy/AdvReac Type Severity Reaction Status Date / Time latex [LATEX] Allergy Intermediate RASH Verified 09/02/20 08:58 risedronate sodium Allergy Unknown Unknown Verified 09/02/20 08:58 fiberglass Allergy Unknown Unknown Uncoded 09/02/20 08:58 latex Allergy Unknown Unknown Uncoded 09/02/20 08:58 PLASTIC Allergy Unknown UNKNOWN Uncoded 03/18/20 16:22 statins Allergy Unknown Unknown Uncoded 09/02/20 08:58 Review of Systems 2 Review of Systems: All other systems are reviewed and are negative Constitutional: Reports as per HPI and Reports no additional constitutional complaints Eyes: Reports as per HPI and Reports no additional eye complaints Reports system reviewed and no additional complaints, except as documented Cardiovascular: Reports as per HPI and Reports no additional cardiovascular complaints Respiratory: Reports as per HPI and Reports no additional respiratory complaints Gastrointestinal: Reports as per HPI and Reports no additional gastrointestinal complaints Genitourinary: Reports no additional female genitourinary complaints Musculoskeletal: Reports no additional musculoskeletal complaints Skin/Breast: Reports system reviewed and no additional complaints, except as docu Psychiatric: Reports no additional psychiatric complaints Endocrine: Reports no additional endocrine complaints Hematologic/Lymphatic: Reports no additional hematologic/lymphatic complaints Allergic/Immunologic: Reports no additional allergic/immunologic complaints Reports system reviewed and no additional complaints, except as documented and Reports Abnormal speech present PMFSH Past Medical History Medical History Non-adherence to medical treatment Vitamin D deficiency Fibromyalgia Depression Anxiety Osteopenia Obesity (BMI 30-39.9) Hypertension Dyslipidemia care home (current) use of insulin Diabetes type 2, uncontrolled Surgical History Hx of colonoscopy Hx of tubal ligation History of partial hysterectomy Family History Family History Father Heart disease Diabetes Mother Diabetes Arthritis Social History Social History Patient Tobacco Use Status: Current everyday Tobacco user Substance Use Type: Crack/Cocaine and Marijuana Advance Directives: No Physical Exam 2 Vital Signs: Vital Signs: Last Vital Signs Temp 98.8 F 03/31/23 12:18 Pulse 91 03/31/23 12:18 Resp 18 03/31/23 12:18 BP 122/67 03/31/23 12:18 Pulse Ox 98 03/31/23 12:18 O2 Del Method Room Air 03/31/23 12:18 BMI result Body Mass Index 23.4 Vital signs have been reviewed and appear to be correct. Blood pressure elevated. Heart rate normal. Respiratory rate normal. Temperature normal. Oxygen saturation normal. Appearance: Alert. Oriented X3. No acute distress. Head: Normal external exam. Normocephalic. Atraumatic. No Mays signs noted. No raccoon eyes noted Eyes: PERRLA. EOMI. Conjunctiva and sclera normal. Eyelids normal. ENT: TM's Normal. Pharynx normal. Uvula midline. Moist mucous membranes. No trismus noted. No drooling noted. No muffled voice noted. Neck: Normal inspection. Neck supple. FROM. No adenopathy. Thyroid Normal. No meningeal signs. No neck mass noted. CVS: Normal heart rate and rhythm. Heart sound normal. No murmurs noted. Pulses normal throughout. Respiratory: No respiratory distress. Painless inspiration. Breath sounds normal. No wheezes/rales/rhonchi noted. Chest nontender. No accessory muscle usage noted or decreased air movement noted. Abdomen: Soft and nontender. Bowel sounds normal in all 4 quadrants. No distention noted. No organomegaly noted. No visible injury noted. Back: No CVA tenderness. Full range of motion noted. Skin: Skin warm and dry. Normal skin color. Normal skin turgor. No rashes/lesions/lacerations noted. Extremities: No lower extremity edema. Extremities exhibit normal range of motion. Extremities nontender. Neuro: Oriented X 3. Cranial nerve exam: II-XII are grossly intact No motor deficit. No sensory deficit. Reflexes normal. Course Course Course Narrative: 67-year-old female came in with a complain of nonspecific generalized weakness and feeling dehydration, patient received IV fluid slightly feels better, negative for viral panel infection, with no dehydration. Patient to follow-up with her PCP for outpatient DM management. Medications Administered Discontinued Medications Generic Name Dose Route Start Last Admin Trade Name Freq PRN Reason Stop Dose Admin Sodium Chloride 1,000 mls @ 999 mls/hr 03/31/23 12:58 03/31/23 14:27 Ns IV 03/31/23 13:58 Infused .Q1H1M ONE Infusion Medical Decision Making Differential Diagnosis Differential Diagnoses: The differential diagnosis associated with the presentation includes (Hyperglycemia, [id number] abnormality, severe anemia, URI, UTI.) Admission/Observation Consideration of admission/observation: Escalation of care including admission/observation considered Lab Data MDM Lab Attestation statement: I reviewed the patient's lab results. 03/31/23 12:53 03/31/23 12:53 Labs: Lab Results 03/31/23 Range/Units 12:53 WBC 10.0 (4.8-10.8) X10*3/uL RBC 4.15 L (4.20-5.50) X10*6/uL Hgb 13.3 (12.0-16.0) g/dl Hct 38.6 (37.0-47.0) % MCV 93.0 (80.0-98.0) fL MCH 32.0 (27.0-33.0) pg MCHC 34.5 (31.0-35.0) g/dl RDW 13.4 (11.0-16.0) % Plt Count 308 (160-400) X10*3/uL MPV 9.9 (9.4-12.3) fL Immature Gran % (Auto) 0.3 (0.0-0.4) % Neut % (Auto) 62.1 (45-73) % Lymph % (Auto) 27.0 (20-40) % [place] % (Auto) 8.2 (2-11) % Eos % (Auto) 1.8 (0-4) % Baso % (Auto) 0.6 (0-2) % Lymph # (Auto) 2.7 (1.2-4.9) X10*3/uL [place] # (Auto) 0.8 (0.1-1.2) X10*3/uL Eos # (Auto) 0.2 (0.0-0.4) X10*3/uL Baso # (Auto) 0.1 (0.0-0.2) X10*3/uL Abs Immat Gran (auto) 0.03 (0.00-0.03) X10*3/uL Absolute Neuts (auto) 6.2 (2.0-8.3) x10*3/uL Absolute Nucleated RBC 0.000 (0.0-0.012) X10*3/uL Nucleated RBC % (auto) 0.0 (0.0-0.2) /100WBC Sodium 138 (135-145) mmol/L Potassium 3.7 (3.3-5.1) mmol/L Chloride 102 (96-108) mmol/L Carbon Dioxide 26 (22-29) mmol/L Anion Gap 14 (12-20) BUN 7 L (9-16) mg/dL Creatinine 0.77 (0.5-1.4) mg/dL Estim Creat Clear Calc 49.5 Estimated GFR > 60 Random Glucose 229 H (60-115) mg/dL Calcium 9.8 D (8.4-10.2) mg/dL Total Bilirubin 0.4 (0.0-1.0) mg/dL AST 18 (5-31) U/L ALT 17 (0-31) U/L Alkaline Phosphatase 59 (39-117) U/L Total Protein 6.9 (6.5-8.0) g/dL Albumin 3.9 (3.5-5.0) g/dL Lipase 25 (8-78) U/L Urine Color Yellow Urine Appearance Clear Urine pH 6.0 (5.0-9.0) Ur Specific Clint 1.020 (1.005-1.025) Urine Protein Negative (Neg-Trace) mg/dL Urine Glucose (UA) 500 H (Negative) mg/dL Urine Ketones Negative (Negative) mg/dL Urine Blood Negative (Negative) Urine Nitrite Negative (Negative) Ur Leukocyte Esterase Negative (Negative) Urine RBC 3-5 H (0-2) /HPF Urine WBC 0-5 (0-5) /HPF Ur Squamous Epith Cells 0-2 (0-2) /HPF Urine Bacteria None Seen (None Seen) Hyaline Casts 0-2 (0-2) /LPF COVID-19 (SAILAJA) Negative (Negative) COVID-19 Clin Com See Note Influenza Type A (JIM) Negative (Negative) Influenza Type B (JIM) Negative (Negative) Influenza A & B Note See Note Discharge Plan Discharge Clinical Impression: Generalized weakness Patient Disposition: Home, Self-Care Instructions: Weakness (ED) Prescriptions: No Action (DME) blood-glucose meter [FreeStyle Lite Meter] Kit See Rx Instructions .ROUTE .MEDSUPPLY Qty: 1 0RF Rx Instructions: As directed (DME) pen needle, diabetic [BD Dianelys 2nd Gen Pen Needle] 32 gauge x 5/32 needle See Rx Instructions .MEDSUPPLY Qty: 50 4RF Rx Instructions: once a day cholecalciferol (vitamin D3) 25 mcg (1,000 unit) capsule 25 mcg PO DAILY Qty: 30 11RF Trulicity 1.5 mg/0.5 mL pen injector 1.5 mg subcut QWEEK 30 Days Qty: 2.5 6RF FreeStyle Lite Strips Strip 1 strip miscellaneous QID Qty: 100 11RF lancets [TRUEplus Lancets] 33 gauge misc 1 gauge miscellaneous QID Qty: 100 11RF alcohol swabs Pads, Medicated topical duloxetine 60 mg capsule,delayed release(DR/EC) 60 mg PO DAILY (DME) FreeStyle Lite Strips Strip See Rx Instructions Not Applicable TID Qty: 10 Rx Instructions: As directed cetirizine 10 mg tablet 10 mg PO DAILY fluticasone propionate 50 mcg/actuation spray,suspension intranasal (DME) lancets 33 gauge misc See Rx Instructions Not Applicable TID Qty: 100 Rx Instructions: As directed cromolyn 4 % drops ophthalmic (eye) omeprazole 20 mg capsule,delayed release(DR/EC) 20 mg PO topiramate 25 mg tablet 25 mg PO DAILY (DME) pen needle, diabetic 32 gauge x 5/32 needle See Rx Instructions .ROUTE .MEDSUPPLY Qty: 100 4RF Rx Instructions: Twice a day (DME) blood-glucose meter [FreeStyle Lite Meter] Kit See Rx Instructions .ROUTE .MEDSUPPLY Qty: 1 0RF Rx Instructions: 4 times a day lisinopril 2.5 mg tablet 2.5 mg PO DAILY duloxetine 30 mg capsule,delayed release(DR/EC) 30 mg PO BEDTIME clonidine HCl 0.1 mg tablet 0.1 mg PO BEDTIME gabapentin 100 mg capsule PO naproxen 500 mg tablet 500 mg PO BID Lantus Solostar U-100 Insulin 100 unit/mL (3 mL) insulin pen 22 unit subcut QPM 30 Days Qty: 6.6 6RF Referrals: Madisyn Wolf MD [Primary Care Provider] -
[2023-03-31 13:00] LABS: MANUAL DIFF FLAG NO
[2023-03-31 13:04] LABS: Appearance Urine Clear; Color Urine Yellow; Glucose Urine UA 500 mg/dL (Negative); Leukocyte Esterase Urine Negative (Negative); Nitrite Urine Negative (Negative); Urine Blood Negative (Negative); Urine Ketones Negative (Negative); Urine Protein Negative (Neg-Trace)
[2023-03-31 13:05] LABS: Basophils Absolute Auto 0.1 X10*3/uL (0.0-0.2); Basophils Percent Auto 0.6 % (0-2); Eosinophils Absolute Auto 0.2 X10*3/uL (0.0-0.4); Eosinophils Percent Auto 1.8 % (0-4); Hematocrit 38.6 % (37.0-47.0); Hemoglobin 13.3 g/dl (12.0-16.0); Imm Gran Abs Auto 0.03 X10*3/uL (0.00-0.03); Imm Gran Pct Auto 0.3 % (0.0-0.4); Lymphocytes Absolute Auto 2.7 X10*3/uL (1.2-4.9); Mean Corpuscular HGB Conc 34.5 g/dl (31.0-35.0); Mean Platelet Volume 9.9 fL (9.4-12.3); Monocytes Absolute Auto 0.8 X10*3/uL (0.1-1.2); Monocytes Percent Auto 8.2 % (2-11); Neutrophils Absolute Auto 6.2 x10*3/uL (2.0-8.3); Neutrophils Percent Auto 62.1 % (45-73); Platelet Count 308 X10*3/uL (160-400); Red Blood Count 4.15 X10*6/uL (4.20-5.50); Red Cell Distribution Width 13.4 % (11.0-16.0)
[2023-03-31 13:09] LABS: Bacteria Urine None Seen (None Seen); Hyaline Casts Urine 0-2 /LPF (0-2); Squamous Epithelial Cell Urine 0-2 /HPF (0-2); WBC Urine 0-5 /HPF (0-5)
[2023-03-31] MEDS: 0.9 % Sodium Chloride 1,000 ML 999 ML IV (13:09)
[2023-03-31 13:16] LABS: Alanine Aminotransferase 17 U/L (0-31); Albumin Level 3.9 g/dL (3.5-5.0); Alkaline Phosphatase 59 U/L (39-117); Anion Gap 14 (12-20); Aspartate Amino Transferase 18 U/L (5-31); Bilirubin Total 0.4 mg/dL (0.0-1.0); Blood Urea Nitrogen 7 mg/dL (9-16); Calcium 9.8 mg/dL (8.4-10.2); Carbon Dioxide 26 mmol/L (22-29); Chloride 102 mmol/L (96-108); Creatinine Clr Calc Pharmacy 49.5; Estimated Glomerular Filt Rate > 60; Glucose Random 229 mg/dL (60-115); Lipase 25 U/L (8-78); Potassium 3.7 mmol/L (3.3-5.1); Sodium 138 mmol/L (135-145); Total Protein 6.9 g/dL (6.5-8.0)
[2023-03-31 13:22] LABS: COVID-19 Test Negative (Negative); IDNOW Serial# 55D5AD1C; IDNOW Serial# 9DB6401D; Influenza A Negative (Negative); Influenza B2 Negative (Negative)
[2023-03-31 15:28] VITALS: BP 142/84; PULSE 77; RESP 18; TEMP 36.7; O2SAT 97
== END 2023-03-31 15:55 | disposition home or self-care (01) ==
PROVIDERS: Physician Assistant; Emergency Provider Emergency Medicine; PCP Family Medicine
DX: R53.1 Weakness (principal); R06.02 Shortness of breath; J02.9 Acute pharyngitis, unspecified; Z20.822 Contact with and (suspected) exposure to COVID-19; E11.9 Type 2 diabetes mellitus without complications; I10 Essential (primary) hypertension; E78.5 Hyperlipidemia, unspecified; F17.200 Nicotine dependence, unspecified, uncomplicated; Z79.899 Other long term (current) drug therapy; Z79.4 Long term (current) use of insulin
CPT/HCPCS: 71046; 80053; 81001; 83690; 85025; 87502; 87635; 96360; 99284

== ENCOUNTER 2023-04-23 09:15 | Outpatient (REF) | payer MEDICARE, MEDICAID, SELFPAY ==
[2023-04-23 12:06] LABS: Blood Urea Nitrogen 8 mg/dL (9-16); Estimated Glomerular Filt Rate > 60
== END 2023-04-23 09:16 | disposition home or self-care (01) ==
LOC: HO.HHCL 09:15
PROVIDERS: Visit Provider Family Medicine
DX: Z00.00 Encounter for general adult medical examination without abnormal findings (principal)
CPT/HCPCS: 36415; 82565; 84520

== ENCOUNTER 2023-05-10 10:56 | Outpatient (REF) | payer MEDICARE, MEDICAID, SELFPAY ==
--- NOTE | ~2023-05-10 | CT_ITS ---
EXAMINATION: CT SOFT TISSUE NECK WITH CONTRAST CLINICAL INFORMATION: Neck mass COMPARISON: None. TECHNIQUE: Following the administration of 60 mL of Omnipaque 350 intravenous contrast, helical imaging was performed in the axial plane with generation of coronal and sagittal reformatted images. This CT examination was performed using dose optimization techniques as appropriate, variously including the following: *Automated exposure control. *Adjustment of mA and/or kV according to patient size (this includes techniques or standardized protocols for targeted exams where dose is matched to indication/reason for exam; i.e. extremities or head). *Use of iterative reconstruction technique. DLP: 179 mGycm FINDINGS: The fat planes of the skull base and soft tissues of the nasopharynx are unremarkable. The paranasal sinuses and mastoid air cells are well aerated. The temporomandibular joints are normal. Edentulous maxillary alveolus with multiple absent mandibular teeth. Partially herniated left greater than right sublingual glands into the submandibular spaces the mylohyoid boutonniere defects. Prominent torus palatini. Otherwise the oral cavity is normal. There is heterogeneous peripheral enhancement in the left palatine tonsil measuring 1.1 cm with central hypodensity and calcified tonsillolith (image 112, series 5), which may reflect asymmetric mucosal hyperenhancement however can be correlated with direct inspection to exclude underlying mucosal lesion. Otherwise the pharynx and larynx are unremarkable, noting the vocal cords are opposed at time of imaging limiting assessment of the glottis. Asymmetric hyperenhancing left level IIa lymph node measuring 8 mm in long axis. The submandibular and parotid glands are normal. Punctate calcification in the right lobe of the thyroid gland. Partially imaged peripheral/subpleural groundglass attenuation along the anterior right upper lobe and reticulation along the anterior right upper lobe likely reflecting interstitial fibrotic changes. Mild paraseptal emphysema. Partially calcified atherosclerotic disease of the aortic arch, great vessel origins, and bilateral carotid bifurcations without significant stenosis. Retropharyngeal course of the distal right common carotid artery. Moderate to severe C5-C6 greater than C6-C7 disc height loss with associated subchondral eburnation. Mild cervical spondylosis. Ossification inferior to the anterior arch of C1 with partially mineralized retrodental ligamentous thickening/pannus. Ossification about the C7 spinous process may reflect sequela of prior ligamentous injury or enthesitis. The imaged portions of the brain parenchyma are unremarkable. Trace calcific plaque along the calcific plaque along the carotid siphons. Some wispy debris/cerumen in the left external auditory canal. CT/CT soft tissue neck w IV con IMPRESSION: Please note there is no BB marker to denote the site of clinical concern. Heterogeneous peripheral enhancement in the left palatine tonsil measuring 1.1 cm with central hypodensity which may reflect asymmetric mucosal hyperenhancement however can be correlated with direct inspection to exclude underlying mucosal lesion. Otherwise the pharynx and larynx are unremarkable, noting nondiagnostic assessment of the glottis. Asymmetric hyperenhancing left level IIa lymph node measuring 8 mm in long axis.
[2023-05-10] MEDS: iohexoL 350 MG/ML 100 ML INFUS..BTL IV (11:49)
== END 2023-05-10 10:57 | disposition home or self-care (01) ==
LOC: HO.CT 10:56
PROVIDERS: PCP Family Medicine; Visit Provider Family Medicine
DX: R22.1 Localized swelling, mass and lump, neck (principal)
CPT/HCPCS: 70491; Q9967

== ENCOUNTER 2023-11-23 10:25 | Outpatient (REF) | payer OTHER, SELFPAY ==
[2023-11-23 11:19] LABS: MANUAL DIFF FLAG NO
[2023-11-23 11:33] LABS: Basophils Absolute Auto 0.1 X10*3/uL (0.0-0.2); Basophils Percent Auto 0.9 % (0-2); Eosinophils Absolute Auto 0.2 X10*3/uL (0.0-0.4); Eosinophils Percent Auto 2.1 % (0-4); Hematocrit 38.8 % (37.0-47.0); Hemoglobin 13.1 g/dl (12.0-16.0); Imm Gran Abs Auto 0.05 X10*3/uL (0.00-0.03); Imm Gran Pct Auto 0.5 % (0.0-0.4); Lymphocytes Absolute Auto 2.3 X10*3/uL (1.2-4.9); Lymphocytes Percent Auto 24.9 % (20-40); Mean Corpuscular HGB Conc 33.8 g/dl (31.0-35.0); Mean Corpuscular Volume 94.6 fL (80.0-98.0); Monocytes Absolute Auto 0.7 X10*3/uL (0.1-1.2); Monocytes Percent Auto 7.6 % (2-11); Neutrophils Absolute Auto 5.9 x10*3/uL (2.0-8.3); Platelet Count 294 X10*3/uL (160-400); Red Cell Distribution Width 14.4 % (11.0-16.0); White Blood Count 9.3 X10*3/uL (4.8-10.8)
[2023-11-23 12:20] LABS: Erythrocyte Sedimentation Rate 10 MM/HR (0-20)
[2023-11-23 13:53] LABS: Alanine Aminotransferase 16 U/L (0-31); Albumin Level 4.1 g/dL (3.5-5.0); Alkaline Phosphatase 50 U/L (39-117); Anion Gap 11 (12-20); Aspartate Amino Transferase 23 U/L (5-31); Bilirubin Total 0.5 mg/dL (0.0-1.0); Blood Urea Nitrogen 9 mg/dL (9-16); C Reactive Protein < 0.10 mg/dL (< or = 0.50); Calcium 9.5 mg/dL (8.4-10.2); Carbon Dioxide 27 mmol/L (22-29); Chloride 105 mmol/L (96-108); Cholesterol 203 mg/dL (<200); Estimated Glomerular Filt Rate > 60; Glucose Random 83 mg/dL (60-115); HDL Cholesterol 56 mg/dL (>40); LDL Cholesterol Calculated 129 mg/dL (<100); Potassium 4.3 mmol/L (3.3-5.1); Sodium 139 mmol/L (135-145); Total Protein 7.1 g/dL (6.5-8.0); Triglycerides 93 mg/dL (<150)
[2023-11-23 14:10] LABS: TSH reflex Free T4 1.15 uIU/mL (0.32-4.0); Vitamin D 25-OH Total 72.7 ng/mL (>30)
[2023-11-23 14:16] LABS: Folate 13.7 ng/mL (> or = 4.0); Vitamin B12 568 pg/mL (200-900)
[2023-11-23 15:05] LABS: Reflex LDLD? No
[2023-11-24 04:41] LABS: ~HepC Num1 0.65 S/CO (0.00-0.79); ~Hepatitis C Antibody Nonreactive (Nonreactive)
[2023-11-24 04:50] LABS: Hepatitis A Antibody IgG REACTIVE (Nonreactive); ~Hepatitis A Antibody IgG 7.18 S/CO (0.00-0.99)
== END 2023-11-23 10:26 | disposition home or self-care (01) ==
LOC: HO.HHCL 10:25
PROVIDERS: Visit Provider Family Medicine
DX: I10 Essential (primary) hypertension (principal); E11.65 Type 2 diabetes mellitus with hyperglycemia; E78.5 Hyperlipidemia, unspecified; R76.8 Other specified abnormal immunological findings in serum; R68.83 Chills (without fever); E55.9 Vitamin D deficiency, unspecified; Z01.84 Encounter for antibody response examination; Z79.4 Long term (current) use of insulin
CPT/HCPCS: 36415; 80053; 80061; 82306; 82570; 82607; 82746; 84443; 85025; 85652; 86140; 86708; 86803

== ENCOUNTER 2023-11-23 13:23 | Outpatient (REF) | payer MEDICARE, MEDICAID, SELFPAY ==
[2023-11-23 17:03] LABS: Creatinine Urine 50.78 mg/dL; Microalbumin Urine < 5.0 mg/L
== END 2023-11-23 13:24 | disposition home or self-care (01) ==
LOC: HO.HHCL 13:23
PROVIDERS: Visit Provider Family Medicine
DX: Z13.89 Encounter for screening for other disorder (principal)
CPT/HCPCS: 82043; 82570

== ENCOUNTER 2024-02-11 13:50 | Outpatient (REF) | payer OTHER, SELFPAY ==
[2024-02-11 16:48] LABS: Creatinine Urine 47.93 mg/dL; Microalbumin Urine < 5.0 mg/L
[2024-02-11 16:59] LABS: Estimated Average Glucose 186 mg/dL; Hemoglobin A1c % 8.1 % (<6.0)
[2024-02-11 17:08] LABS: Alanine Aminotransferase 19 U/L (0-31); Albumin Level 4.3 g/dL (3.5-5.0); Alkaline Phosphatase 65 U/L (39-117); Anion Gap 15 (12-20); Aspartate Amino Transferase 20 U/L (5-31); Blood Urea Nitrogen 7 mg/dL (9-16); Calcium 10.1 mg/dL (8.4-10.2); Carbon Dioxide 26 mmol/L (22-29); Chloride 101 mmol/L (96-108); Cholesterol 216 mg/dL (<200); Estimated Glomerular Filt Rate > 60; Glucose Random 164 mg/dL (60-115); HDL Cholesterol 55 mg/dL (>40); LDL Cholesterol Calculated 141 mg/dL (<100); Potassium 3.9 mmol/L (3.3-5.1); Sodium 138 mmol/L (135-145); Total Protein 7.5 g/dL (6.5-8.0); Triglycerides 104 mg/dL (<150)
[2024-02-11 17:16] LABS: Bilirubin Total 0.6 mg/dL (0.0-1.0); TSH reflex Free T4 1.49 uIU/mL (0.32-4.0)
[2024-02-11 17:26] LABS: Folate 19.3 ng/mL (> or = 4.0); Vitamin B12 670 pg/mL (200-900)
[2024-02-11 20:33] LABS: Reflex LDLD? No
[2024-02-12 08:32] LABS: ~HepC Num1 0.61 S/CO (0.00-0.79); ~Hepatitis C Antibody Nonreactive (Nonreactive)
== END 2024-02-11 13:51 | disposition home or self-care (01) ==
LOC: HO.HHCL 13:50
PROVIDERS: Visit Provider Family Medicine
DX: E11.65 Type 2 diabetes mellitus with hyperglycemia (principal); Z79.4 Long term (current) use of insulin; R76.8 Other specified abnormal immunological findings in serum
CPT/HCPCS: 36415; 80053; 80061; 82570; 82607; 82746; 83036; 84443; 86803

== ENCOUNTER 2024-10-26 11:26 | Inpatient (IN) | payer MEDICARE, SELFPAY ==
--- NOTE | 2024-10-26 | ECG_ITS ---
Test Reason : chest pain Blood Pressure : */* mmHG Vent. Rate : 77 BPM Atrial Rate : 77 BPM P-R Int : 162 ms QRS Dur : 66 ms QT Int : 392 ms P-R-T Axes : 61 76 91 degrees QTcB Int : 443 ms Normal sinus rhythm Septal infarct , age undetermined Abnormal ECG When compared with ECG of 26-Oct-2024 14:53, Septal infarct is now Present Referred By: Ruben Costello Electronically Signed By: Romeo Topete
--- NOTE | 2024-10-26 | ECG_ITS ---
Test Reason : repeat Blood Pressure : */* mmHG Vent. Rate : 65 BPM Atrial Rate : 65 BPM P-R Int : 164 ms QRS Dur : 74 ms QT Int : 426 ms P-R-T Axes : 62 70 68 degrees QTcB Int : 443 ms Normal sinus rhythm Normal ECG When compared with ECG of 26-Oct-2024 11:41, Nonspecific T wave abnormality, worse in Lateral leads Referred By: Jimbo Oh Electronically Signed By: Romeo Topete
--- NOTE | ~2024-10-26 | XR_ITS ---
CLINICAL HISTORY: pain 1 view chest x-ray Comparison: None Findings: No consolidation or effusion. Heart size is normal. No acute fracture. IMPRESSION: 1. No acute findings. This document has been electronically signed by: Halima Lang MD on 10/26/2024 14:03:18
[2024-10-26 11:34] VITALS: BP 131/71; BP 94/51; PULSE 55; PULSE 62; RESP 27; TEMP 36; O2SAT 100; O2SAT 97; BMI 23.2
[2024-10-26 11:53] LABS: MANUAL DIFF FLAG NO
[2024-10-26 11:54] LABS: Basophils Absolute Auto 0.1 X10*3/uL (0.0-0.2); Basophils Percent Auto 0.8 % (0-2); Eosinophils Absolute Auto 0.1 X10*3/uL (0.0-0.4); Eosinophils Percent Auto 1.2 % (0-4); Hematocrit 38.5 % (37.0-47.0); Hemoglobin 13.4 g/dl (12.0-16.0); Imm Gran Abs Auto 0.04 X10*3/uL (0.00-0.03); Imm Gran Pct Auto 0.3 % (0.0-0.4); Lymphocytes Absolute Auto 4.1 X10*3/uL (1.2-4.9); Mean Corpuscular HGB Conc 34.8 g/dl (31.0-35.0); Mean Corpuscular Hemoglobin 31.7 pg (27.0-33.0); Mean Platelet Volume 9.8 fL (9.4-12.3); Monocytes Absolute Auto 0.9 X10*3/uL (0.1-1.2); Monocytes Percent Auto 7.9 % (2-11); Neutrophils Absolute Auto 6.4 x10*3/uL (2.0-8.3); Neutrophils Percent Auto 54.8 % (45-73); Platelet Count 306 X10*3/uL (160-400); Red Blood Count 4.23 X10*6/uL (4.20-5.50); Red Cell Distribution Width 13.8 % (11.0-16.0); White Blood Count 11.7 X10*3/uL (4.8-10.8)
--- NOTE | 2024-10-26 11:55 | PC.NURSE ---
Patient presents from [facility] via EMS. While driving home experienced sudden onset sob with assoc mid sternal chest pain, N/V. Alert and oriented, very anxious. banquet supervisor applied and NSR noted. Lungs clear bilat. Respirations sl rapid secondary to anxiety. Abdomen soft, non-tender with positive bowel sounds. Positive pedal pulses with no edema noted.
[2024-10-26 12:00] VITALS: BP 155/85; PULSE 52; RESP 28; O2SAT 100
[2024-10-26 12:09] LABS: Glucose, Whole Blood 158 mg/dL (60-115)
[2024-10-26 12:13] LABS: Alanine Aminotransferase 17 U/L (0-31); Albumin Level 4.1 g/dL (3.5-5.0); Alkaline Phosphatase 57 U/L (39-117); Anion Gap 17 (12-20); Aspartate Amino Transferase 29 U/L (5-31); Bilirubin Total 0.6 mg/dL (0.0-1.0); Blood Urea Nitrogen 9 mg/dL (9-16); Calcium 9.5 mg/dL (8.4-10.2); Carbon Dioxide 22 mmol/L (22-29); Chloride 103 mmol/L (96-108); Creatinine Clr Calc Pharmacy 50.1; Estimated Glomerular Filt Rate > 60; Glucose Random 142 mg/dL (60-115); Potassium 3.7 mmol/L (3.3-5.1); Sodium 138 mmol/L (135-145); Total Protein 7.2 g/dL (6.5-8.0)
[2024-10-26] MEDS: ondansetron HCL 4 MG/2 ML VIAL IVPUSH (12:13)
[2024-10-26 12:14] LABS: Troponin-I High Sensitivity 28.4 ng/L (<3.5-17.0)
[2024-10-26] MEDS: 0.9 % Sodium Chloride 1,000 ML 999 ML IV (12:15)
--- NOTE | 2024-10-26 12:55 | ED_ITS ---
HPI - Chest Pain General Chief Complaint: Chest Pain Stated Complaint: sob Time Seen by Provider: 10/26/24 11:53 Source: patient, RN notes reviewed and old records reviewed Mode of arrival: EMS Limitations: no limitations History of Present Illness ED Provider: Althea HPI narrative: 69-year-old female with a past medical history significant for diabetes, hypertension, hyperlipidemia, fibromyalgia, medication noncompliance presents for evaluation of chest pain. Patient reports midsternal chest pain with shortness of breath and vomiting that started about an hour prior to arrival. Her symptoms started while she was at [employer] She denies any fevers, chills, coughing She denies any history of coronary artery disease She denies abdominal pain. She reports that she had an insulin monitor placed into her left arm yesterday and she wants it removed Related Data Home Medications ?Medication ?Instructions ?Recorded ?Confirmed alcohol swabs pad topical 04/15/20 03/23/21 blood sugar diagnostic #10 ea 04/15/20 03/23/21 cetirizine 10 mg tablet 10 mg PO DAILY 04/15/20 03/23/21 cromolyn 4 % eye drops drp ophthalmic (eye) 04/15/20 03/23/21 duloxetine 60 mg capsule,delayed 60 mg PO DAILY 04/15/20 03/23/21 release fluticasone propionate 50 intranasal 04/15/20 03/23/21 mcg/actuation nasal spray,suspension lancets 33 gauge #100 ea 04/15/20 03/23/21 topiramate 25 mg tablet 25 mg PO DAILY 05/03/20 03/23/21 clonidine HCl 0.1 mg tablet 0.1 mg PO BEDTIME 03/23/21 03/23/21 duloxetine 30 mg capsule,delayed 30 mg PO BEDTIME 03/23/21 03/23/21 release gabapentin 100 mg capsule mg PO 03/23/21 03/23/21 lisinopril 2.5 mg tablet 2.5 mg PO DAILY 03/23/21 03/23/21 naproxen 500 mg tablet 500 mg PO BID 03/23/21 03/23/21 omeprazole 20 mg capsule,delayed 20 mg PO 03/23/21 03/23/21 release Previous Rx's ?Medication ?Instructions ?Recorded blood-glucose meter (Jovany #1 ea 11/10/20 Lite Meter kit) blood-glucose meter (FreeStyle #1 ea 05/13/20 Lite Meter kit) pen needle, diabetic 32 gauge x #100 ea 05/13/20 pen needle, diabetic 32 gauge x #50 ea 09/02/20 (BD Dianelys 2nd Gen Pen Needle) Lantus Solostar U-100 Insulin 100 22 unit (0.22 mL) subcut QPM 30 03/23/21 unit/mL (3 mL) subcutaneous pen days #6.6 mL (insulin glargine) cholecalciferol (vitamin D3) 25 25 mcg PO DAILY #30 caps 09/26/21 mcg (1,000 unit) capsule dulaglutide 1.5 mg/0.5 mL 1.5 mg (0.5 mL) subcut QWEEK 30 10/14/21 subcutaneous pen injector days #2.5 mL (Trulicity) blood sugar diagnostic (FreeStyle 1 strip miscellaneous QID for 11/30/21 Lite Strips) diabetes mellitus #100 strips lancets 33 gauge (TRUEplus Lancets) 1 gauge miscellaneous QID for 11/30/21 diabetes mellitus #100 ea Allergies Allergy/AdvReac Type Severity Reaction Status Date / Time latex [LATEX] Allergy Intermediate RASH Verified 10/26/24 11:42 risedronate sodium Allergy Unknown Unknown Verified 10/26/24 11:42 fiberglass Allergy Unknown Unknown Uncoded 09/02/20 08:58 latex Allergy Unknown Unknown Uncoded 09/02/20 08:58 PLASTIC Allergy Unknown UNKNOWN Uncoded 03/18/20 16:22 statins Allergy Unknown Unknown Uncoded 09/02/20 08:58 Review of Systems 2 Constitutional: Constitutional: Denies body ache(s), Denies chills, Denies fever(s) and Denies headache(s) ENT: Denies headache(s) Cardiovascular: Cardiovascular: Reports chest pain, Reports chest pain at rest and Reports dyspnea Respiratory: Respiratory: Denies cough and Reports dyspnea Gastrointestinal: Gastrointestinal: Denies abdominal pain, Reports nausea and Reports vomiting Musculoskeletal: Musculoskeletal: Denies back pain Integumentary/Breasts: Skin/Breast: Denies rash Neurologic: Denies headache(s) PMFSH Past Medical History Medical History Non-adherence to medical treatment Vitamin D deficiency Fibromyalgia Depression Anxiety Osteopenia Obesity (BMI 30-39.9) Hypertension Dyslipidemia senior care (current) use of insulin Diabetes type 2, uncontrolled Surgical History Hx of colonoscopy Hx of tubal ligation History of partial hysterectomy Family History Family History Father Heart disease Diabetes Mother Diabetes Arthritis Social History Social History Patient Tobacco Use Status: Current everyday Tobacco user Smoked in Last 30 Days: Yes Substance Use Type: Crack/Cocaine and Marijuana Advance Directives: No Advance Directives Information Provided: No Physical Exam 2 Vital Signs: Vital Signs: Last Vital Signs Temp 96.8 F 10/26/24 11:34 Pulse 52 10/26/24 12:00 Resp 28 H 10/26/24 12:00 BP 155/85 H 10/26/24 12:00 Pulse Ox 100 10/26/24 12:00 O2 Del Method Room Air 10/26/24 12:00 BMI result Body Mass Index 23.2 Const: General: healthy appearing, comfortable, no acute distress, alert and awake Nutritional Appearance: well nourished Orientation/consciousness: p atient oriented x3 HEENT: Head: Yes normocephalic and Yes atraumatic Throat: Yes posterior oropharynx normal Eyes: Eyelids: Yes eyelids normal Conjunctivae: conjunctivae normal S clerae: sclerae normal Corneas: corneas normal Pupils: Equal, round and reactive pupils present EOM: EOMs intact bilaterally Neck: Neck: Yes full ROM Resp: Effort & Inspection: normal respiratory effort, able to speak in complete sentences, no audible wheezes and not labored Auscultation: clear to auscultation bilaterally Cardio: Rate: regular rate Rhythm: regular rhythm GI: Inspection: No distended Palpation (GI): Soft to palpation, not firm, nontender, no guarding and not rigid Skin: General skin exam: elasticity normal Neuro: General: patient oriented x3 Cranial nerves: Yes Equal, round and reactive pupils present and Yes Bilaterally intact EOM present Cognition (Neuro): normal cognition Course Reevaluation(s) Reevaluation #1: Patient's troponin is slightly elevated to 28.4. On re-evaluation she was still complaining of midsternal chest pain. Her blood pressure has improved to 150 5/84, I ordered aspirin 325 mg p.o. and nitroglycerin Q 5 minutes p.r.n. x3 doses. Time: 12:56 Reevaluation #2: Patient's delta troponin elevated from 28.4-635.6. I ordered a repeat EKG. I went to evaluate the patient and she was currently pain-free in wishes to go home. I explained the patient that she was having an [place] and can not be discharged home safely. We will discuss with Cardiology. Again, the patient is currently chest pain-free Time: 14:50 Medications Administered Discontinued Medications Generic Name Dose Route Start Last Admin Trade Name Bernadine PRN Reason Stop Dose Admin Aspirin 325 mg 10/26/24 12:52 10/26/24 13:10 Aspirin 325 Mg Tablet PO 10/26/24 12:53 325 mg ONCE ONE Administration Sodium Chloride 1,000 mls @ 999 mls/hr 10/26/24 12:15 10/26/24 13:15 Ns IV 10/26/24 13:15 Infused .Q1H1M GARRETT Infusion Ondansetron HCl 4 mg 10/26/24 12:04 10/26/24 12:13 Ondansetron Hcl 4 Mg/2 Ml Vial IVPUSH 10/26/24 12:05 4 mg ONCE ONE Administration Medical Decision Making Medical Decision Making [facility] Narrative: 69-year-old female past medical history as above presents for evaluation of chest pain that started while at rest during mormonism. Her EKG does not show any acute ischemic changes. She continues to have active chest pain. Her blood pressure was initially somewhat low on arrival. This improved without intervention. Plan for labs, chest x-ray, further workup as indicated. 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 Mild leukocytosis to 11.7, no significant anemia. Normal platelet count. No electrolyte abnormalities. Random glucose elevated to 142. Initial troponin elevated to 28.4. 10/26/24 11:48 10/26/24 11:48 Labs: Lab Results 10/26/24 10/26/24 10/26/24 Range/Units 11:48 12:05 13:59 WBC 11.7 H (4.8-10.8) X10*3/uL RBC 4.23 (4.20-5.50) X10*6/uL Hgb 13.4 (12.0-16.0) g/dl Hct 38.5 (37.0-47.0) % MCV 91.0 (80.0-98.0) fL MCH 31.7 (27.0-33.0) pg MCHC 34.8 (31.0-35.0) g/dl RDW 13.8 (11.0-16.0) % Plt Count 306 (160-400) X10*3/uL MPV 9.8 (9.4-12.3) fL Immature Gran % (Auto) 0.3 (0.0-0.4) % Neut % (Auto) 54.8 (45-73) % Lymph % (Auto) 35.0 (20-40) % Newberry % (Auto) 7.9 (2-11) % Eos % (Auto) 1.2 (0-4) % Baso % (Auto) 0.8 (0-2) % Lymph # (Auto) 4.1 (1.2-4.9) X10*3/uL Newberry # (Auto) 0.9 (0.1-1.2) X10*3/uL Eos # (Auto) 0.1 (0.0-0.4) X10*3/uL Baso # (Auto) 0.1 (0.0-0.2) X10*3/uL Abs Immat Gran (auto) 0.04 H (0.00-0.03) X10*3/uL Absolute Neuts (auto) 6.4 (2.0-8.3) x10*3/uL Absolute Nucleated RBC 0.000 (0.0-0.012) X10*3/uL Nucleated RBC % (auto) 0.0 (0.0-0.2) /100WBC Sodium 138 (135-145) mmol/L Potassium 3.7 (3.3-5.1) mmol/L Chloride 103 (96-108) mmol/L Carbon Dioxide 22 (22-29) mmol/L Anion Gap 17 (12-20) BUN 9 (9-16) mg/dL Creatinine 0.74 (0.5-1.4) mg/dL Estim Creat Clear Calc 50.1 Estimated GFR > 60 POC Glucose 158 H (60-115) mg/dL Random Glucose 142 H (60-115) mg/dL Calcium 9.5 (8.4-10.2) mg/dL Total Bilirubin 0.6 (0.0-1.0) mg/dL AST 29 (5-31) U/L ALT 17 (0-31) U/L Alkaline Phosphatase 57 (39-117) U/L Troponin I High Sens 28.4 H 635.6 H* D (<3.5-17.0) ng/L Total Protein 7.2 (6.5-8.0) g/dL Albumin 4.1 (3.5-5.0) g/dL 10/26/24 Range/Units 14:49 WBC (4.8-10.8) X10*3/uL RBC (4.20-5.50) X10*6/uL Hgb (12.0-16.0) g/dl Hct (37.0-47.0) % MCV (80.0-98.0) fL MCH (27.0-33.0) pg MCHC (31.0-35.0) g/dl RDW (11.0-16.0) % Plt Count (160-400) X10*3/uL MPV (9.4-12.3) fL Immature Gran % (Auto) (0.0-0.4) % Neut % (Auto) (45-73) % Lymph % (Auto) (20-40) % Newberry % (Auto) (2-11) % Eos % (Auto) (0-4) % Baso % (Auto) (0-2) % Lymph # (Auto) (1.2-4.9) X10*3/uL Newberry # (Auto) (0.1-1.2) X10*3/uL Eos # (Auto) (0.0-0.4) X10*3/uL Baso # (Auto) (0.0-0.2) X10*3/uL Abs Immat Gran (auto) (0.00-0.03) X10*3/uL Absolute Neuts (auto) (2.0-8.3) x10*3/uL Absolute Nucleated RBC (0.0-0.012) X10*3/uL Nucleated RBC % (auto) (0.0-0.2) /100WBC Sodium (135-145) mmol/L Potassium (3.3-5.1) mmol/L Chloride (96-108) mmol/L Carbon Dioxide (22-29) mmol/L Anion Gap (12-20) BUN (9-16) mg/dL Creatinine (0.5-1.4) mg/dL Estim Creat Clear Calc Estimated GFR POC Glucose 180 H (60-115) mg/dL Random Glucose (60-115) mg/dL Calcium (8.4-10.2) mg/dL Total Bilirubin (0.0-1.0) mg/dL AST (5-31) U/L ALT (0-31) U/L Alkaline Phosphatase (39-117) U/L Troponin I High Sens (<3.5-17.0) ng/L Total Protein (6.5-8.0) g/dL Albumin (3.5-5.0) g/dL Independent Interpretation I performed an independent interpretation of an: EKG (Sinus bradycardia with a rate of [address] segment changes. Nondiagnostic EKG) Critical Care Time Critical Care Time Critical Care Time: Yes Total Critical Care Time: 50 Attestation: 69-year-old female with multiple risk factors for coronary artery disease presents for evaluation of chest pain. She was found to be having an NSTEMI and was started on a heparin drip. She required consultation with Cardiology as well as hospitalist and will be admitted for further management Discharge Plan Discharge Clinical Impression: Non-ST elevation [place] (NSTEMI) Patient Disposition: Admitted As Inpatient Prescriptions: No Action (DME) blood-glucose meter [FreeStyle Lite Meter] Kit See Rx Instructions .ROUTE .[facility] Qty: 1 0RF Rx Instructions: As directed (DME) pen needle, diabetic [BD Dianelys 2nd Gen Pen Needle] 32 gauge x 5/32 needle See Rx Instructions .MEDSUPPLY Qty: 50 4RF Rx Instructions: once a day cholecalciferol (vitamin D3) 25 mcg (1,000 unit) capsule 25 mcg PO DAILY Qty: 30 11RF Trulicity 1.5 mg/0.5 mL pen injector 1.5 mg subcut QWEEK 30 Days Qty: 2.5 6RF FreeStyle Lite Strips Strip 1 strip miscellaneous QID Qty: 100 11RF lancets [TRUEplus Lancets] 33 gauge misc 1 gauge miscellaneous QID Qty: 100 11RF alcohol swabs Pads, Medicated topical duloxetine 60 mg capsule,delayed release(DR/EC) 60 mg PO DAILY (DME) FreeStyle Lite Strips Strip See Rx Instructions Not Applicable TID Qty: 10 Rx Instructions: As directed cetirizine 10 mg tablet 10 mg PO DAILY fluticasone propionate 50 mcg/actuation spray,suspension intranasal (DME) lancets 33 gauge misc See Rx Instructions Not Applicable TID Qty: 100 Rx Instructions: As directed cromolyn 4 % drops ophthalmic (eye) omeprazole 20 mg capsule,delayed release(DR/EC) 20 mg PO topiramate 25 mg tablet 25 mg PO DAILY (DME) pen needle, diabetic 32 gauge x 5/32 needle See Rx Instructions .ROUTE .MEDSUPPLY Qty: 100 4RF Rx Instructions: Twice a day (DME) blood-glucose meter [FreeStyle Lite Meter] Kit See Rx Instructions .ROUTE .MEDSUPPLY Qty: 1 0RF Rx Instructions: 4 times a day lisinopril 2.5 mg tablet 2.5 mg PO DAILY duloxetine 30 mg capsule,delayed release(DR/EC) 30 mg PO BEDTIME clonidine HCl 0.1 mg tablet 0.1 mg PO BEDTIME gabapentin 100 mg capsule PO naproxen 500 mg tablet 500 mg PO BID Lantus Solostar U-100 Insulin 100 unit/mL (3 mL) insulin pen 22 unit subcut QPM 30 Days Qty: 6.6 6RF Print Language: Unable To Collect
[2024-10-26] MEDS: Aspirin 325 MG TABLET PO (13:10)
[2024-10-26 14:39] LABS: Troponin-I High Sensitivity 635.6 ng/L (<3.5-17.0)
--- NOTE | 2024-10-26 14:49 | ECG_ITS ---
Test Reason : SOB Blood Pressure : */* mmHG Vent. Rate : 56 BPM Atrial Rate : 56 BPM P-R Int : 158 ms QRS Dur : 70 ms QT Int : 442 ms P-R-T Axes : 59 59 25 degrees QTcB Int : 426 ms Poor data quality Sinus bradycardia Otherwise normal ECG When compared with ECG of 04-Sep-2009 21:58, No significant changes seen Referred By: Jimbo Oh Electronically Signed By: Romeo Topete
[2024-10-26 14:54] LABS: Glucose, Whole Blood 180 mg/dL (60-115)
[2024-10-26] MEDS: Heparin Sodium,Porcine 5,000 UNIT/ML VIAL 3200 UNIT IVPUSH (15:10)
[2024-10-26 15:15] LABS: Hematocrit 36.6 % (37.0-47.0); Hemoglobin 12.5 g/dl (12.0-16.0); Mean Corpuscular HGB Conc 34.2 g/dl (31.0-35.0); Mean Corpuscular Hemoglobin 31.5 pg (27.0-33.0); Mean Corpuscular Volume 92.2 fL (80.0-98.0); Mean Platelet Volume 9.6 fL (9.4-12.3); Platelet Count 288 X10*3/uL (160-400); Red Blood Count 3.97 X10*6/uL (4.20-5.50); White Blood Count 21.7 X10*3/uL (4.8-10.8)
[2024-10-26] MEDS: Heparin Sodium,Porcine/1/2NS 25,000 UNIT/250 ML IV.SOLN 6.46 UNIT IVCONT (15:15)
--- NOTE | 2024-10-26 15:15 | PC.NURSE ---
PT stated she wanted to Leave AMA, PT educated on Risks of leaving AMA and veerzlies that risks are life threatening including , pt agreed to stay and family member will help her at the house with her pet.
[2024-10-26 15:20] LABS: Prothrombin Time 12.2 SEC (10.9-12.4)
[2024-10-26 15:22] LABS: PTT Heparin Drip 29.7 SEC (53-77.9)
--- NOTE | 2024-10-26 15:41 | PM.IMHP ---
History of Present Illness Date of Service: 10/26/24 Attending physician on admission: Leopoldo Saha Chief Complaint: Chest pain Patient is a 69-year-old [place] female with past medical history hypertension, obesity, fibromyalgia, marijuana, hx of crack cocaine, hyperlipidemia, type 2 diabetes insulin dependent, tobacco dependence, endometrial cancer status post hysterectomy, depression/anxiety presents to the emergency department with persistent chest pain after attending [facility]. Patient was walking approximately 1 mi from [place] to home and [address] experienced midsternal chest pain that was burning with no radiation. Patient was complaining of nausea, vomiting, diaphoresis and 911 was called and patient was seen on the sidewalk. EKG was negative for any ischemic changes. Troponin initially 28 and repeat troponin of to 635. Cardiology consulted and asked that patient be admitted and started on heparin. Patient also received 325 mg of aspirin and will start 81 mg daily. Possible plan may be transferred to [facility] SundayOctober 27 for cardiac catheterization. Patient initially stated that she does not need that and per nursing was planning on leaving AMA. Patient now agreeable to admission and continuing treatment. Patient is currently chest pain-free. Please note that pt reports that she has been trying to quit smoking and is now using 10 cigarettes per day but has been smoking while wearing the nicotine patch. Pt does not know the strength of nicotine patch. Pt smoked this morning but states she was not wearing the patch. Review of Systems Review of Systems: Patient denies any current chest pain, nausea, vomiting, abdominal pain, diarrhea or constipation. Yes all other systems are reviewed and are negative [facility] Medical History (Updated 10/26/24 @ 16:08 by PAVEL Vu-JODY) Tobacco dependence Marijuana use History of crack cocaine use Non-adherence to medical treatment Vitamin D deficiency Fibromyalgia Depression Anxiety Osteopenia Obesity (BMI 30-39.9) Hypertension Dyslipidemia halfway (current) use of insulin Diabetes type 2, uncontrolled Cognitive capacity: alert and orientated X3 Functional capacity: independent ambulation Patient : No Family History Father Heart disease Diabetes Mother Diabetes Arthritis Surgical History Hx of colonoscopy Hx of tubal ligation History of partial hysterectomy Social History Patient Tobacco Use Status: Current everyday Tobacco user Substance Use Type: Crack/Cocaine and Marijuana Ebola Risk: Travel/Contact With Anyone From Affected Area/s: No Has Patient Experienced Ebola Symptoms: No Meds Allergies Allergy/AdvReac Type Severity Reaction Status Date / Time latex [LATEX] Allergy Intermediate RASH Verified 10/26/24 11:42 risedronate sodium Allergy Unknown Unknown Verified 10/26/24 11:42 fiberglass Allergy Unknown Unknown Uncoded 09/02/20 08:58 latex Allergy Unknown Unknown Uncoded 09/02/20 08:58 PLASTIC Allergy Unknown UNKNOWN Uncoded 03/18/20 16:22 statins Allergy Unknown Unknown Uncoded 09/02/20 08:58 Active Medications: Current Medications Acetaminophen (Acetaminophen 325 Mg Tablet) 650 mg PO Q6H PRN PRN Reason: Pain, Mild 1-3,fever,headache Aspirin (Aspirin Enteric Coated 81 Mg Tablet.Dr) 81 mg PO DAILY [facility] Atorvastatin Calcium (Atorvastatin Calcium 80 Mg Tablet) 80 mg PO BEDTIME GARRETT Calcium Carbonate (Calcium Carbonate 750 Mg Tab.Chew) 750 mg PO Q4H PRN PRN Reason: Heartburn Dextrose (Dextrose 50 % 25 Gm/50 Ml Syringe) 25 gm IVPUSH Q15M PRN; Protocol PRN Reason: per Hypoglycemia Standing Ord. Glucose (Glucose Gel 15 Gm Gel..Gram.) 15 gm PO Q15M PRN; Protocol PRN Reason: per Hypoglycemia Standing Ord. Heparin Sodium (Porcine) (Heparin Sodium,Porcine 5,000 Unit/Ml Vial) 2,200 unit 40 unit/kg (2200 unit) IVPUSH PROTOCOL BOLUS PRN; Protocol PRN Reason: 40 unit/kg - Heparin Protocol Heparin Sodium (Porcine) (Heparin Sodium,Porcine 5,000 Unit/Ml Vial) 4,300 unit 80 unit/kg (4300 unit) IVPUSH PROTOCOL BOLUS PRN; Protocol PRN Reason: 80 unit/kg - Heparin Protocol Heparin Sodium/Sodium Chloride (Heparin Sodium,Porcine/1/2ns) 25,000 unit in 250 mls @ 0 mls/hr IVCONT .Q0M GARRETT; Protocol Last Admin: 10/26/24 15:15 Dose: 12 units/kg/hr, 6.46 mls/hr Insulin Human Lispro (Insulin Lispro 100 Unit/Ml 3 Ml Vial) 0 unit SUBCUT QIDACHS [facility]; Protocol Magnesium Hydroxide (Milk Of Magnesia 30 Ml Oral.Susp) 30 ml PO DAILY PRN PRN Reason: Constipation Melatonin (Melatonin 3 Mg Tablet) 6 mg PO BEDTIME PRN PRN Reason: Insomnia Nitroglycerin (Nitroglycerin 0.4 Mg Tab.Subl) 0.4 mg SUBLINGUAL Q5MX3 PRN PRN Reason: Chest Pain Sodium Chloride (0.9 % Sodium Chloride Flush 3 Ml Syringe) 3 ml IVFLUSH [facility] Home Medications ?Medication ?Instructions ?Recorded ?Confirmed ?Last Taken ?Type blood sugar diagnostic #10 ea 04/15/20 03/23/21 Unknown History cetirizine 10 mg tablet 10 mg PO DAILY 04/15/20 10/26/24 Unknown History duloxetine 60 mg capsule,delayed 60 mg PO DAILY 04/15/20 10/26/24 Unknown History release fluticasone propionate 50 1 spray intranasal DAILY PRN 04/15/20 10/26/24 Unknown History mcg/actuation nasal Allergy Symptoms spray,suspension lancets 33 gauge #100 ea 04/15/20 03/23/21 Unknown History gabapentin 100 mg capsule 100 - 200 mg PO BEDTIME PRN Pain 03/23/21 10/26/24 Unknown History lisinopril 2.5 mg tablet 2.5 mg PO DAILY 03/23/21 10/26/24 Unknown History acetaminophen 650 mg 650 mg PO TID PRN Pain 10/26/24 10/26/24 Unknown History tablet,extended release albuterol sulfate 90 mcg/actuation 2 inh inhalation Q4-6H PRN 10/26/24 10/26/24 Unknown History breath activated powder inhaler Shortness Of Breath Or Wheezing conjugated estrogens 0.625 mg/gram 500 mg vaginal QWEEK 10/26/24 10/26/24 Unknown History vaginal cream (Premarin) diclofenac sodium 1 % topical gel 2 g topical TID PRN pain 10/26/24 10/26/24 Unknown History fluticasone 250 mcg-salmeterol 50 1 ea inhalation BID PRN Shortness 10/26/24 10/26/24 Unknown History mcg/dose blistr powdr for Of Breath Or Wheezing inhalation hydroxyzine pamoate 25 mg capsule 25 mg PO Q8H PRN itch 10/26/24 10/26/24 Unknown History insulin glargine 100 unit/mL (3 16 unit subcut DAILY 10/26/24 10/26/24 Unknown History mL) subcutaneous pen (Lantus Solostar U-100 Insulin) montelukast 10 mg tablet 10 mg PO DAILY 10/26/24 10/26/24 Unknown History Physical Exam Vital Signs and Narrative: Vital Signs: Last Vital Signs Temp 96.8 F 10/26/24 11:34 Pulse 52 10/26/24 12:00 Resp 28 H 10/26/24 12:00 BP 155/85 H 10/26/24 12:00 Pulse Ox 100 10/26/24 12:00 O2 Del Method Room Air 10/26/24 12:00 BMI result Body Mass Index 23.2 Alert and orientated X3, appears overwhelmed with beign admitted but agreeable after education provided Neuro: CN II-X11 intact, no deficits, visual acuity intact EYES: PERRLA, EOM intact ENT: hearing intact, no issues with swallowing, uvula midline, lips moist, nares patent no epistaxis Cardiac: S1 S2 RRR, no murmur, no JVD, no edema in Lower ext, no carotid bruit Pulmonary: lungs clear to auscultation B Abdominal: BS active in all 4 quadrants, no guarding, tenderness, rebounding MSK: strength 5/5 upper and lower extremities : no CVA tenderness no bladder distension Extremities: no edema in lower extremities, PT and DP pulses palpable +2 Psych: mood mildly anxious, judgment and insight good Skin: no open wounds noted on exam Results Labs 10/26/24 15:09 10/26/24 11:48 Labs: Laboratory Results - last 24 hr 10/26/24 10/26/24 10/26/24 11:48 12:05 14:49 MCV 91.0 MCH 31.7 MCHC 34.8 RDW 13.8 Plt Count 306 MPV 9.8 Immature Gran % (Auto) 0.3 Neut % (Auto) 54.8 Lymph % (Auto) 35.0 Archuleta % (Auto) 7.9 Eos % (Auto) 1.2 Baso % (Auto) 0.8 Lymph # (Auto) 4.1 [place] # (Auto) 0.9 Eos # (Auto) 0.1 Baso # (Auto) 0.1 Abs Immat Gran (auto) 0.04 H Absolute Neuts (auto) 6.4 Absolute Nucleated RBC 0.000 Nucleated RBC % (auto) 0.0 PT INR aPTT Heparin Protocol Anion Gap 17 Estim Creat Clear Calc 50.1 Estimated GFR > 60 POC Glucose 158 H 180 H Random Glucose 142 H Calcium 9.5 Total Bilirubin 0.6 AST 29 ALT 17 Alkaline Phosphatase 57 Total Protein 7.2 Albumin 4.1 10/26/24 15:09 MCV 92.2 MCH 31.5 MCHC 34.2 RDW 14.0 Plt Count 288 MPV 9.6 Immature Gran % (Auto) Neut % (Auto) Lymph % (Auto) [place] % (Auto) Eos % (Auto) Baso % (Auto) Lymph # (Auto) [place] # (Auto) Eos # (Auto) Baso # (Auto) Abs Immat Gran (auto) Absolute Neuts (auto) Absolute Nucleated RBC 0.000 Nucleated RBC % (auto) 0.0 PT 12.2 INR 1.0 aPTT Heparin Protocol 29.7 L Anion Gap Estim Creat Clear Calc Estimated GFR POC Glucose Random Glucose Calcium Total Bilirubin AST ALT Alkaline Phosphatase Total Protein Albumin ECG Attestation: I personally reviewed and interpreted this ECG as follows: (NSR, Nonspecific T wave abnormality, worse in Lateral leads ) Prior ECG tracings: available for review Imaging Radiologist's Impressions: CXR Findings: No consolidation or effusion. Heart size is normal. No acute fracture. IMPRESSION: 1. No acute findings. Assessment and Plan (1) Non-ST elevation VA (NSTEMI): Status: Acute (2) Hypertension: Qualifiers: Hypertension type: primary hypertension Qualified Code(s): I10 - Essential (primary) hypertension Status: Acute (3) Dyslipidemia: Status: Acute (4) Diabetes type 2, uncontrolled: Qualifiers: Glycemic state: with hyperglycemia Qualified Code(s): E11.65 - Type 2 diabetes mellitus with hyperglycemia Status: Acute Plan Patient is a 69-year-old [place] female with past medical history hypertension, obesity, fibromyalgia, marijuana, hx of crack cocaine, hyperlipidemia, type 2 diabetes insulin dependent, tobacco dependence, endometrial cancer status post hysterectomy, depression/anxiety being admitted for non STEMI per Cardiology with plans for transfer to [facility] in the next 24-48 hours for cardiac catheterization. Non STEMI/hypertension/dyslipidemia -Cardiology consult ordered, Cardiology aware of nonspecific T-wave changes especially in the lateral leads -Heparin infusion, aspirin 325 initially and aspirin 81 mg daily, metoprolol ordered -Diabetic/Cardiology diet -Echo ordered -Lipid panel, A1c, TSH pending -Trend troponin, MG ordered -Plan for cardiac catheterization per Cardiology -ACEI on board, metoprolol, low NA diet -Statin ordered Diabetes type 2 insulin-dependent -Sliding scale insulin a.c. and HS, patient will not be made NPO until further work up and plan per cardiology -Diabetic diet Obesity -Patient counseled on the benefits of healthy diet and exercise once cleared cardiac-chua Depression/anxiety -Continue duloxetine -Denies SI, is willing to stay for admission and cardiac work-up, was wanting to leave AMA earlier Tobacco use/marijuana use/history of crack cocaine -Patient denies any recent crack cocaine use -Was using nicotine patch and smoking while using the nicotine patch, patient currently defers need for NRT -Marijuana use weekly DVT prophylaxis: Heparin infusion PPI: protonix ordered MED REC pending Patient requires inpatient hospital admission per Cardiology for non STEMI. Patient requires heparin infusion which can only be done IV. Patient needs continuous monitoring as she is at risk for possible clinical compromise. Quality Stroke Does the patient have a stroke diagnosis?: No Reason for No Anti-thrombotic by Day Two: N/A - Med Ordered VTE Prior VTE?: No VTE Risk Level:: Medical - moderate - high VTE Device Contraindication: Treatment Not Indicated VTE Drug Contraindication: N/A - Med Ordered
--- NOTE | 2024-10-26 15:47 | PHA.MEDREC ---
Pharmacy Consult ? Medication Reconciliation Pharmacy has completed the medication reconciliation. Spoke with patient to confirm medications. She takes 16 units of lantus. She uses gabapentin and advair as needed. She uses premarin once weekly but does not do it on a specific day of the week. She is no longer using NRT (patches, lozenges) or Trulicity. She reports she took no medications today.
[2024-10-26 16:00] VITALS: BP 174/81; PULSE 75; RESP 16; TEMP 36.6; O2SAT 96
[2024-10-26 16:07] LABS: Estimated Average Glucose 163 mg/dL; Hemoglobin A1C 183.2703 umol/L; Hemoglobin A1c % 7.3 % (<6.0); Total Hemoglobin (HGBA1C) 3269.4166 umol/L
[2024-10-26 16:30] LABS: Free T4 (Free Thyroxine) 0.98 ng/dL (0.71-1.85); Thyroid Stimulating Hormone 2.97 uIU/mL (0.32-4.0)
[2024-10-26 17:40] LABS: Glucose, Whole Blood 180 mg/dL (60-115)
[2024-10-26] MEDS: Insulin Lispro 100 UNIT/ML 3 ML VIAL SUBCUT (17:41)
[2024-10-26 18:00] VITALS: BP 149/78; PULSE 72; RESP 20; O2SAT 96
[2024-10-26 21:04] VITALS: BMI 24.1
[2024-10-26 21:09] VITALS: BP 165/82; PULSE 75
[2024-10-26] MEDS: Nitroglycerin 0.4 MG TAB.SUBL SUBLINGUAL (21:09)
--- NOTE | 2024-10-26 21:10 | PC.NURSE ---
Pt c/o CP 3/10 describing burning pressure. Admin sublingual nitro with relief a few minutes later pain was 0/10. MD notified and EKG obtained. Troponin STAT ordered.
[2024-10-26 21:18] LABS: Glucose, Whole Blood 148 mg/dL (60-115)
--- NOTE | 2024-10-26 21:45 | PC.NURSE ---
Multiple attempts to contact phlebotomy. No answer on either number provided.
--- NOTE | 2024-10-26 21:55 | PC.NURSE ---
Stack Clerk chief projectionist notified that Rn unable to get ahold of phlebotomy.
--- NOTE | 2024-10-26 22:15 | PC.NURSE ---
Pt is refusing all lab draws. RN provided education on importance of needing lab draws for chest pain and heparin drip. Pt is still refusing. notified
--- NOTE | 2024-10-26 22:58 | PC.NURSE ---
RN notified MD again over pt refusing labs. Per MD, have samuel speak with her to her; can't refuse. Fire Management Technician attempted to discuss care with pt however, pt ignored her. MD notified and at bedside. Pt now agreeable. Phlebotomy is a few rooms down and they stated they will come see the patient next.
[2024-10-26 23:23] VITALS: BP 142/85; PULSE 76; RESP 18; TEMP 36.4; O2SAT 96
[2024-10-26 23:59] LABS: Partial Thromboplastin Time 64.6 SEC (26.0-36.8)
[2024-10-27] LABS: Magnesium 1.8 mg/dL (1.6-2.6)
--- NOTE | 2024-10-27 | ECG_ITS ---
Test Reason : CP Blood Pressure : */* mmHG Vent. Rate : 74 BPM Atrial Rate : 74 BPM P-R Int : 158 ms QRS Dur : 70 ms QT Int : 398 ms P-R-T Axes : 68 78 85 degrees QTcB Int : 441 ms Normal sinus rhythm Septal infarct (cited on or before 26-Oct-2024) Abnormal ECG When compared with ECG of 26-Oct-2024 21:11, No significant change was found Referred By: Leopoldo Saha Electronically Signed By: Romeo Topete
[2024-10-27 00:32] LABS: Troponin-I High Sensitivity 7313.1 ng/L (<3.5-17.0)
[2024-10-27 01:31] VITALS: BP 132/76; PULSE 80
[2024-10-27] MEDS: Nitroglycerin/D5W 100 MG/250 ML INFUS..BTL IVCONT (01:31)
[2024-10-27 01:41] VITALS: RESP 18
[2024-10-27] MEDS: fentaNYL citrate/PF 100 MCG/2 ML VIAL 50 MCG IVPUSH (01:41)
[2024-10-27 01:44] VITALS: BP 141/81; PULSE 80
--- NOTE | 2024-10-27 01:51 | P.EN_ITS ---
Event Note Date of Service: 10/27/24 Event Note: NSTEMI: Patient developed chest pain around 21:00-given sublingual nitroglycerin with improvement in the chest pain. Repeated EKG with no significant changes compared to the prior EKG. Order for troponin but patient was refusing, after multiple reinforcements franky ruben finally agreed to get the troponins. Which resulted around 2330. Troponins elevated to 7313. Prior troponins were 653. Spoke to Cardiology Dr. Heller who suggested heparin drip and consider transfer. Patient is started on nitro drip. Continued her heparin drip. Spoke to ICU attending Dr. Allred-> patient is accepted to ICU. I also spoke to [facility], spoke to Dr. Presley-> CCU attending, who reviewed the patient's case with the at risk specialist on-call and accepted the patient to the CCU. I notified ICU team here. Time Spent With Patient Time: Total time managing care of this patient today ____ minutes.
[2024-10-27] MEDS: ondansetron HCL 4 MG/2 ML VIAL IVPUSH (01:57)
--- NOTE | 2024-10-27 02:04 | P.DS_ITS ---
DS: Providers Provider Date of Service: 10/27/24 Date of admission: 10/26/24 15:09 Date of discharge: 10/27/24 Primary care physician: Unknown Physician Admitting clinician: Leopoldo Saha Attending physician on admission: Leopoldo Saha Consults: 10/26/24 15:10 Consult to Cardiology Routine Consulting Provider: [facility] [place] Reason for consultation: nstemi Has provider been notified: Yes Attending physician on discharge: Sukhdeep Bill Discharging clinician: Lisa Gant DS: Transfer Hospital Acceptance Reason for Transfer: Interventional cardiology Name of Facility: [facility] Accepting Provider: Dr. Presley DS: Diagnosis Discharge Diagnosis (1) Non-ST elevation MN (NSTEMI): Status: Acute (2) Hypertension: Status: Acute (3) Dyslipidemia: Status: Acute (4) Diabetes type 2, uncontrolled: Status: Acute DS: Summary Hospital Course Hospital Course: 69-year-old female with history of hypertension, obesity, fibromyalgia, marijuana, hx of crack cocaine, hyperlipidemia, type 2 diabetes insulin dependent, tobacco dependence? (currently attempting to quit; smokes ? pack/day), endometrial cancer status post hysterectomy, depression/anxiety presented to the emergency room? diaphoretic, with nausea and vomiting and complaining of persistent midsternal chest pain that was burning with no radiation. EKG negative for any ischemic changes at that time. She was given aspirin 325mg and started on a heparin drip. She later developed chest pain around 21:00 and was given sublingual nitroglycerin with improvement in the chest pain. She refused additional blood work but eventually agreed after multiple? reinforcements. Troponin initially 28, 635 then 7313. Construction Equipment Mechanic, Dr Heller was consulted and recommended a nitroglycerin drip and transfer for possible cardiac cath. Dr. Presley, [facility] reviewed the patient?s case with the fishery biologist on-call and accepted the patient to CCU at [facility]. The pt had been reluctant to receive care and was going to sign out AMA but is now agreeable to transfer for continued/escalated treatment. Time spent discussing smoking cessation with patient: 3 to 10 minutes Status at Discharge Cognitive/behavioral status at discharge: A & O x 3 Functional status at discharge: independent ambulation Time Attestation Total time managing care of this patient today: 30 mintues. Discharge Coordination Time (in mins): 30 Quality: Safe Use of Opioids Does Pt have an Active Cancer Diagnosis on the Problem List?: No Quality: Stroke Does the patient have a stroke diagnosis?: No Physical Exam Vital Signs: Vital Signs: Last Vital Signs Temp 97.6 F 10/26/24 23:23 Pulse 80 10/27/24 01:44 Resp 18 10/27/24 01:41 BP 141/81 H 10/27/24 01:44 Pulse Ox 96 10/26/24 23:23 O2 Del Method Room Air 10/26/24 23:23 O2 Flow Rate 2 10/26/24 18:00 BMI result Body Mass Index 24.1 Const: General: alert Orientation/consciousness: patient oriented x3 HEENT: Head: Yes normal to inspection General nose exam: Normal external nose present Mouth: Normal oral and palatal mucosa present and oropharynx normal Throat: Yes posterior oropharynx normal Eyes: General: appearance normal, both eyes and all related structures Pupils: Equal, round and reactive pupils present Neck: Neck: Yes full ROM and No no JVD Resp: Effort & Inspection: normal respiratory effort, able to speak in complete sentences, no audible wheezes and no cough Auscultation: clear to auscultation bilaterally Cardio: Jugular venous distension: JVD present Rate: regular rate Rhythm: regular rhythm GI: Inspection: Yes normal to inspection Palpation (GI): Soft to palpation, nontender and not rigid Skin: General skin exam: elasticity normal Lesions: no lesions Rashes: no rashes Wounds: no wounds Neuro: General: patient oriented x3 Cranial nerves: Yes CN's II-XII intact bilaterally, Yes Equal, round and reactive pupils present and Yes Bilaterally intact EOM present DS: Data Data Completed and Pending Labs on day of discharge: Laboratory Results - last 24 hr 10/26/24 10/26/24 10/26/24 11:48 12:05 13:59 WBC 11.7 H RBC 4.23 Hgb 13.4 Hct 38.5 MCV 91.0 MCH 31.7 MCHC 34.8 RDW 13.8 Plt Count 306 MPV 9.8 Immature Gran % (Auto) 0.3 Neut % (Auto) 54.8 Lymph % (Auto) 35.0 [place] % (Auto) 7.9 Eos % (Auto) 1.2 Baso % (Auto) 0.8 Lymph # (Auto) 4.1 [place] # (Auto) 0.9 Eos # (Auto) 0.1 Baso # (Auto) 0.1 Abs Immat Gran (auto) 0.04 H Absolute Neuts (auto) 6.4 Absolute Nucleated RBC 0.000 Nucleated RBC % (auto) 0.0 PT INR APTT aPTT Heparin Protocol Sodium 138 Potassium 3.7 Chloride 103 Carbon Dioxide 22 Anion Gap 17 BUN 9 Creatinine 0.74 Estim Creat Clear Calc 50.1 Estimated GFR > 60 POC Glucose 158 H Random Glucose 142 H Estimat Average Glucose Hemoglobin A1c % Calcium 9.5 Magnesium Total Bilirubin 0.6 AST 29 ALT 17 Alkaline Phosphatase 57 Troponin I High Sens 28.4 H 635.6 H* D Total Protein 7.2 Albumin 4.1 TSH 2.97 Free T4 0.98 10/26/24 10/26/24 10/26/24 14:49 15:09 17:37 WBC 21.7 H RBC 3.97 L Hgb 12.5 Hct 36.6 L MCV 92.2 MCH 31.5 MCHC 34.2 RDW 14.0 Plt Count 288 MPV 9.6 Immature Gran % (Auto) Neut % (Auto) Lymph % (Auto) [place] % (Auto) Eos % (Auto) Baso % (Auto) Lymph # (Auto) [place] # (Auto) Eos # (Auto) Baso # (Auto) Abs Immat Gran (auto) Absolute Neuts (auto) Absolute Nucleated RBC 0.000 Nucleated RBC % (auto) 0.0 PT 12.2 INR 1.0 APTT aPTT Heparin Protocol 29.7 L Sodium Potassium Chloride Carbon Dioxide Anion Gap BUN Creatinine Estim Creat Clear Calc Estimated GFR POC Glucose 180 H 180 H Random Glucose Estimat Average Glucose 163 Hemoglobin A1c % 7.3 H Calcium Magnesium Total Bilirubin AST ALT Alkaline Phosphatase Troponin I High Sens Total Protein Albumin TSH Free T4 10/26/24 10/26/24 21:09 23:36 WBC RBC Hgb Hct MCV MCH MCHC RDW Plt Count MPV Immature Gran % (Auto) Neut % (Auto) Lymph % (Auto) [place] % (Auto) Eos % (Auto) Baso % (Auto) Lymph # (Auto) [place] # (Auto) Eos # (Auto) Baso # (Auto) Abs Immat Gran (auto) Absolute Neuts (auto) Absolute Nucleated RBC Nucleated RBC % (auto) PT INR APTT 64.6 H* aPTT Heparin Protocol Sodium Potassium Chloride Carbon Dioxide Anion Gap BUN Creatinine Estim Creat Clear Calc Estimated GFR POC Glucose 148 H Random Glucose Estimat Average Glucose Hemoglobin A1c % Calcium Magnesium 1.8 Total Bilirubin AST ALT Alkaline Phosphatase Troponin I High Sens 7313.1 H* D Total Protein Albumin TSH Free T4 Discharge Plan Discharge Anticipated Discharge Date/Time: 10/27/24 02:15 Patient Disposition: Xfer Acute Care Hospital Discharge Diagnosis: Non STEMI/hypertension/dyslipidemia Referrals: Physician,Unknown J [Primary Care Provider] - 1 Week Discharge Medications: Continued cholecalciferol (vitamin D3) 25 mcg (1,000 unit) capsule 25 mcg PO DAILY Qty: 30 11RF acetaminophen 650 mg tablet extended release 650 mg PO TID PRN (Reason: Pain) montelukast 10 mg tablet 10 mg PO DAILY duloxetine 60 mg capsule,delayed release(DR/EC) 60 mg PO DAILY lisinopril 2.5 mg tablet 2.5 mg PO DAILY Held fluticasone propion-salmeterol 250-50 mcg/dose blister with device 1 ea INHALATION BID PRN (Reason: Shortness Of Breath Or Wheezing) Hold Instructions: Resume on 10/04/24. hydroxyzine pamoate 25 mg capsule 25 mg PO Q8H PRN (Reason: itch) Hold Instructions: Resume on 10/04/24. diclofenac sodium 1 % gel 2 g topical TID PRN (Reason: pain) Hold Instructions: Resume on 10/04/24. albuterol sulfate 90 mcg/actuation Aerosol Powdr Breath Activated 2 inh INHALATION Q4-6H PRN (Reason: Shortness Of Breath Or Wheezing) Hold Instructions: Resume on 10/04/24. cetirizine 10 mg tablet 10 mg PO DAILY Hold Instructions: Resume on 11/01/24. gabapentin 100 mg capsule 100 - 200 mg PO BEDTIME PRN (Reason: Pain) Hold Instructions: Resume on 10/04/24. Discontinued fluticasone propionate 50 mcg/actuation spray,suspension 1 spray intranasal DAILY PRN (Reason: Allergy Symptoms) No Action (DME) blood-glucose meter [FreeStyle Lite Meter] Kit See Rx Instructions .ROUTE .MEDSUPPLY Qty: 1 0RF Rx Instructions: As directed (DME) pen needle, diabetic [BD Dianelys 2nd Gen Pen Needle] 32 gauge x 5/32 needle See Rx Instructions .MEDSUPPLY Qty: 50 4RF Rx Instructions: once a day Premarin 0.625 mg/gram cream 500 mg vaginal QWEEK Patient Comments: Patient does not have a specific day of the week insulin glargine [Lantus Solostar U-100 Insulin] 100 unit/mL (3 mL) insulin pen 16 unit subcut DAILY (DME) FreeStyle Lite Strips Strip See Rx Instructions Not Applicable TID Qty: 10 Rx Instructions: As directed (DME) lancets 33 gauge misc See Rx Instructions Not Applicable TID Qty: 100 Rx Instructions: As directed (DME) pen needle, diabetic 32 gauge x 5/32 needle See Rx Instructions .ROUTE .MEDSUPPLY Qty: 100 4RF Rx Instructions: Twice a day (DME) blood-glucose meter [FreeStyle Lite Meter] Kit See Rx Instructions .ROUTE .MEDSUPPLY Qty: 1 0RF Rx Instructions: 4 times a day Discharge Orders: Discharge Order (Routine); Ordered 10/27/24 Ordered By: Lisa Gant Diet: Diabetic diet Activity on Discharge: Rest with bed elevated Stand Alone Forms: Patient Portal Discharge page Print Language: Unable To Collect Care Plan Goals: Return to highest level of function Health Concerns: NSTEMI, tobacco dependence, dyslipidemia, DM2, hypertension Plan of Treatment: Transfer to acute care [facility] Assessment: (1) Non-ST elevation MN (NSTEMI): Status: Acute (2) Hypertension: Qualifiers: Hypertension type: primary hypertension Qualified Code(s): I10 - Essential (primary) hypertension Status: Acute (3) Dyslipidemia: Status: Acute (4) Diabetes type 2, uncontrolled: Qualifiers: Glycemic state: with hyperglycemia Qualified Code(s): E11.65 - Type 2 diabetes mellitus with hyperglycemia Status: Acute
--- NOTE | 2024-10-27 02:20 | PC.NURSE ---
Addendum entered by Sincere Walls RN 10/27/24 04:11: will ems transported patient to [facility] at 03:30..patient denied heartburn or chest apin Addendum entered by Sincere Walls RN 10/27/24 02:33: patient to transfer to [facility]...m3...room 15...report called to kaden at m3...ems arrival pending...nsr..no ectopy. Original Note: patient transferred from telemetry unit to icu 260-1 at 01;27..alert..oriented x3..speech clear...skin warm and dry...heparin drip already infusing 12 units/kg/hr...nsr noectopy..c/o 08/11 midsternal chest pain but stated it's my wicked bad heartburn that won't let up...my heartburn is really bad . o2 placed 2 l/m via cannula..sao2 improved from 95% to 97%...2nd #20angio started to left arm...iv nitroglycerin drip started 20 mcg/min and titrated to 40 mcg/min,,,fentanyl 50 mcg iv x1 given per provider...one episode vomiting/nausea relieved with zofean 4mg iv x1...currently nitro drip at 40 mcg/min and patient reports relief of chest pain/heartburn and nausea...per provider plan for transfer to [facility]..awaiting bed assignment @ [facility]...
[2024-10-27 02:36] VITALS: BP 121/77; PULSE 74; RESP 18
[2024-10-27 02:37] VITALS: BP 121/77; PULSE 78; RESP 18
[2024-10-27 03:00] VITALS: BP 118/73; PULSE 78; RESP 20; O2SAT 96
[2024-10-30 14:03] LABS: Heparin Anti-Xa 0.35 IU/mL
== END 2024-10-27 03:30 | disposition short-term general hospital (02) | DRG 282 ==
LOC: HO.ED 15:10 → HO.EDOVER 15:52 → HO.IMC 20:00 → HO.EDOVER 10-27 01:20 → HO.ICU 10-27 01:24
PROVIDERS: Hospitalist; Nurse Practitioner Family; Physician Assistant; Admitting Provider Internal Medicine; Emergency Provider Emergency Medicine; Visit Provider Internal Medicine
DX: I21.4 Non-ST elevation (NSTEMI) myocardial infarction (principal); F17.210 Nicotine dependence, cigarettes, uncomplicated; Z71.6 Tobacco abuse counseling; E78.5 Hyperlipidemia, unspecified; M79.7 Fibromyalgia; I10 Essential (primary) hypertension; E11.9 Type 2 diabetes mellitus without complications; Z85.42 Personal history of malignant neoplasm of other parts of uterus; Z79.4 Long term (current) use of insulin; Z79.899 Other long term (current) drug therapy
CPT/HCPCS: 36415; 71045; 80053; 82947; 83036; 83735; 84439; 84443; 84484; 85025; 85027; 85520; 85610; 85730; 93005; 99285; J1644; J2305; J2405; J3010

== ENCOUNTER → 2024-10-26 12:03 | Outpatient (BNV) | payer MEDICARE, SELFPAY | PROVIDERS: Emergency Provider Emergency Medicine; PCP Family Medicine; Visit Provider Nuclear Medicine | DX: R07.9 Chest pain, unspecified (principal) | CPT/HCPCS: 71045 ==

== ENCOUNTER → 2024-10-26 14:53 | Outpatient (BNV) | payer MEDICARE, SELFPAY | PROVIDERS: Admitting Provider Internal Medicine; Emergency Provider Emergency Medicine; Visit Provider Internal Medicine Cardiovascular Disease | DX: R94.31 Abnormal electrocardiogram [ECG] [EKG] (principal); R00.1 Bradycardia, unspecified; R07.9 Chest pain, unspecified | CPT/HCPCS: 93010 ==

== ENCOUNTER 2024-10-26 15:09 | Outpatient (BNV) | payer MEDICARE, SELFPAY | END 2024-10-27 00:31 | PROVIDERS: Admitting Provider Internal Medicine; Emergency Provider Emergency Medicine; Visit Provider Internal Medicine Cardiovascular Disease | DX: R07.9 Chest pain, unspecified (principal); R94.31 Abnormal electrocardiogram [ECG] [EKG] | CPT/HCPCS: 93010 ==

== ENCOUNTER → 2024-10-26 15:09 | Outpatient (BNV) | payer MEDICARE, SELFPAY | PROVIDERS: Admitting Provider Internal Medicine; Emergency Provider Emergency Medicine; Visit Provider Nurse Practitioner Family | DX: I21.4 Non-ST elevation (NSTEMI) myocardial infarction (principal); I10 Essential (primary) hypertension; E78.5 Hyperlipidemia, unspecified; E11.65 Type 2 diabetes mellitus with hyperglycemia | CPT/HCPCS: 99239 ==

== ENCOUNTER → 2024-10-26 15:09 | Outpatient (BNV) | payer MEDICARE, SELFPAY | PROVIDERS: Admitting Provider Internal Medicine; Emergency Provider Emergency Medicine; Visit Provider Internal Medicine | DX: I21.4 Non-ST elevation (NSTEMI) myocardial infarction (principal); I10 Essential (primary) hypertension; E78.5 Hyperlipidemia, unspecified; E11.65 Type 2 diabetes mellitus with hyperglycemia | CPT/HCPCS: 99223; 99499 ==

== ENCOUNTER 2025-02-05 13:43 | Outpatient (REF) | payer MEDICARE, SELFPAY ==
--- NOTE | ~2025-02-05 | XR_ITS ---
EXAMINATION: XR CHEST CLINICAL INFORMATION: chornic cough, hx asthma and CHF COMPARISON: October 26, 2024. TECHNIQUE: 2 views of the chest were obtained. FINDINGS: Pulmonary reticular pattern. No consolidation, pleural effusion or pneumothorax. Cardiomediastinal silhouette size is normal. Calcified plaque thoracic aorta. Multilevel marginal osteophyte formation and endplate sclerosis throughout the axial skeleton. Osteopenia versus osteoporosis. Degenerative changes in the shoulders/acromioclavicular joints. XR/XR chest 2V IMPRESSION: Chronic interstitial lung disease. No acute airspace disease. Multilevel spondylosis and mild scoliosis. Degenerative changes in the shoulders. Electronically signed by: Arcenio Ricketts MD 02/05/2025 02:21 PM EDT
--- OUTSIDE RECORDS SUMMARY | 2025-02-05 13:45 | XMS_ITS | Clinical Summary ---
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 Apply a thin layer to affected area(s) twice daily; DO not exceed 100 g per 2 week or 60 g per week. 180 g 11 023 Active cholecalciferol (Vitamin D High Potency) 25 MCG (1000 UT) capsuleIndicati ons:Routine health maintenance TAKE 1 CAPSULE BY MOUTH EVERY DAY 90 capsule 3 024 Active Estrogens Conjugated (Premarin) 0.625 MG/GM cream Insert 0.5 g into the vagina 2 (two) times a week. 30 g 3 024 Active cromolyn (Opticrom) 4 % ophthalmic solution INSTILL 1 DROP INTO THE AFFECTED EYE(S) FOUR TIMES DAILY 10 mL 1 024 Active salicylic acid 17 % gelIndications: Cyst of vulva Apply topically Once per day. 14 g 024 Active ketorolac (Acular) 0.5 % ophthalmic solution PLACE 1 DROP IN THE AFFECTED EYE THREE TIMES DAILY DIRECTED STARTING 2 DAYS BEFORE SURGERY Active Pentips Generic Pen Acworth 32G X 4 MM miscIndications :Type 2 diabetes mellitus with hyperglycemia, with long-term current use of insulin ([facility]) USE DIRECTED EVERY DAY WITH lantus solostar 100 each 3 Active triamcinolone (Kenalog) 0.1 % cream Apply to affected area once daily. 30 g 3 025 Active Continuous Glucose Bin Piler (FreeStyle Ron 3 [place]) device 1 each Once per day. Use as directed for CGM 1 each Active Continuous Glucose Sensor (FreeStyle Ron 3 Plus Sensor) misc 1 each every 15 days. Apply 1 every 15 days as directed for CGM 2 each Active glucose blood (FreeStyle Precision Osito Test) test strip Use to test blood sugar up to three times daily in case of CGM failure or extremes of BG 100 each 11 025 2025 Active insulin glargine (Lantus SoloStar) 100 UNIT/ML penIndications: Type 2 diabetes mellitus with hyperglycemia, with long-term current use of insulin ([facility]) INJECT 16 UNITS SUBCUTANEOUSLY EVERY DAY Active atorvastatin (Lipitor) 80 MG tablet Take 1 tablet by mouth at bedtime. Active ASPIRIN 81 MG chewable tablet Chew 1 tablet Once per day. Active Diclofenac Sodium 1 % gel APPLY 2 GRAMS TO AFFECTED AREA(S) THREE TIMES DAILY IN THE MORNING, AT NOON, AND AT BEDTIME NEEDED FOR PAIN 100 g 2 025 Active montelukast (Singulair) 10 MG tablet TAKE 1 TABLET BY MOUTH EVERY EVENING 90 tablet 3 Active cyclobenzaprine (Flexeril) 10 MG tablet TAKE 1/2 TABLET BY MOUTH AT BEDTIME NEEDED FOR MUSCLE SPASMS 30 tablet 2 Active TRUEplus Lancets 33G miscIndications :Type 2 diabetes mellitus with hyperglycemia, with long-term current use of insulin ([facility]) TEST BLOOD SUGAR FOUR TIMES DAILY 100 each 025 Active glucose blood (FREESTYLE LITE) test stripIndication s:Type 2 diabetes mellitus with hyperglycemia, with long-term current use of insulin ([facility]) Use bid. Dx diabetes 60 each Active lisinopril 2.5 MG tablet TAKE 1 TABLET BY MOUTH EVERY DAY 90 tablet 3 Active OneTouch UltraSoft 2 Lancets misc 1 each 3 times daily. Use to check blood sugar 3 times daily 100 each Active glucose blood test strip Use to check blood sugar 3 times daily 100 each 025 2025 Active acetaminophen (Tylenol 8 Hour) 650 MG ER tablet TAKE 1 TABLET BY MOUTH THREE TIMES DAILY IN THE MORNING, AT NOON, AND AT BEDTIME NEEDED FOR MILD OR MODERATE PAIN 60 tablet Active cetirizine (ZyrTEC) 10 MG tablet TAKE 1 TABLET BY MOUTH EVERY DAY 90 tablet Active albuterol (Ventolin HFA) 108 (90 Base) MCG/ACT inhalerIndicati ons:Mild intermittent asthma without complication Inhale 2 puffs every 4 (four) hours if needed for wheezing or shortness of breath for up to 15 days. 18 g 025 Active gabapentin (Neurontin) 100 MG capsuleIndicati ons:Carpal tunnel syndrome, unspecified laterality TAKE 1 TO 2 CAPSULES BY MOUTH EVERY DAY AT BEDTIME 60 capsule 3 025 Active Fluticasone-Ibrahima meterol 250-50 MCG/ACT aerosol powder INHALE 1 PUFF BY MOUTH TWICE DAILY IN THE MORNING AND IN THE EVENING 12 HOURS APART RINSE MOUTH AFTER USING. 60 each 11 025 Active Blood Glucose Monitoring Suppl (ONE TOUCH ULTRA 2) w/Device kit USE TO TEST BLOOD SUGAR THREE TIMES DAILY DIRECTED 1 kit 025 Active hydrOXYzine pamoate (Vistaril) 25 MG capsule TAKE 1 CAPSULE BY MOUTH EVERY 8 HOURS NEEDED FOR ITCHING 90 capsule 1 025 Active metoprolol succinate XL (Toprol-XL) 25 MG 24 hr tabletIndicatio ns:Primary hypertension Take 1 tablet (25 mg) by mouth Once per day. 30 tablet 1 025 Active benzonatate (Tessalon Perles) 100 MG capsuleIndicati ons:Chronic cough Take 1 capsule (100 mg) by mouth if needed in the morning, at noon, and at bedtime for cough for up to 7 days. Do not crush or chew. 20 capsule 025 2024 Active azithromycin (Zithromax) 250 MG tabletIndicatio ns:Chronic cough Take 2 tablets (500 mg) by mouth Once per day for 1 day, THEN 1 tablet (250 mg) Once per day for 4 days. 6 tablet 025 2024 Active metoprolol succinate XL (Toprol-XL) 25 MG 24 hr tablet Take 1 tablet by mouth Once per day. 025 2024 Discontinued(R eorder (will not trigger notification to Pharmacy)) Active Problems Problem Noted Date Diagnosed Date Cardiomyopathy 11/04/2024 Assessment & Plan (01/10/2025 7:06 AM EDT): - Hospitalized in September 2024 - Cardiac cath did not reveal any significant CAD - Echo showed ejection fraction is 35-40% - Differential Dx: stress-induced; autoimmune; amyloidosis; - Pt declined MRI due to claustrophobia; will order open MRI - Referred to cardiology and cardiac rehab, still pending appointment Assessment & Plan (11/07/2024 1:30 PM EDT): - Hospitalized in September 2024 - Cardiac cath did not reveal any significant CAD - Echo showed ejection fraction is 35-40% - Differential Dx: stress-induced; autoimmune; amyloidosis; - Pt declined MRI due to claustrophobia; will order open MRI - Will refer to cardiology and cardiac rehab Ill-fitting dentures 09/10/2024 Subacute maxillary sinusitis 06/02/2024 Assessment & Plan (06/02/2024 3:39 PM EST): Rx Augmentin x 7d Rest (sleep at least 8 hours a night). Hydrate with plenty of water (avoid caffeine and alcohol). Use saline nose drops to loosen mucus + Flonase bid x 1w. DC Nyquil Take Acetaminophen (Tylenol )/Ibuprofen as needed to reduce fever, headache, body aches or discomfort Gargle with salt water and use throat sprays/lozenges for throat pain. Use heated, humidified air. If you do not have a humidifier, take hot showers. 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 Mild cervical spondylosis. Ossification inferior to the anterior arch of C1 with partially mineralized retrodental ligamentous thickening/pannus. Ossification about the C7 spinous process may reflect sequela of prior ligamentous injury or enthesitis. - Patient is not interested in injection treatment or evaluation by specialist - Continue judicious use of gabapentin and NSAIDs - Patient reports diclofenac gel is ineffective and declines increasing its strength or trying capsaicin; patient states she plans to try OTC meds. Assessment & Plan (11/20/2023 10:17 AM EDT): - patient was prescribed cyclobenzaprine to use as needed Missing teeth, acquired 10/23/2023 Weight loss 08/04/2023 Assessment & Plan (08/04/2023 6:29 PM EST): - approximately 12 lb in 1 year - in a setting of Tx with GLP-1 agonist, insulin, and depression - patient smokes cigarettes - monitor weight closely Edentulous maxilla 06/14/2023 History of COVID-19 04/06/2023 Assessment & Plan (04/06/2023 7:11 AM EDT): - no long-COVID syndrome afterwards - now is having dyspnea, likely due to asthma / COPD / tobacco use - does not have 20 pack year of smoking history per pt - will discuss again Allergic rhinitis 04/05/2023 Assessment & Plan (12/29/2024 10:57 AM EDT): - continue montelukast - continue cetirizine Assessment & Plan (02/11/2024 3:16 PM EDT): - continue montelukast - continue cetirizine Assessment & Plan (04/05/2023 11:52 AM EDT): - continue montelukast - switch from cetirizine to loratadine Mass of left side of neck 04/05/2023 Assessment & Plan (04/24/2024 12:11 PM EDT): - 05/14/23 CT scan report is inconclusive - Referred to ENT for further evaluation since pt continues to smoke cigarettes. - Patient was seen by ENT on 02/28/24. Patient had laryngoscopy and reportedly had MRI. Patient was informed that evaluation was reassuring for no malignancy. Patient was encouraged to continue working on smoking cessation. Assessment & Plan (02/11/2024 3:15 PM EDT): - 05/14/23 CT scan report is inconclusive - Referred to ENT for further evaluation since pt continues to smoke cigarettes. - Patient missed an appointment with ENT in August 2023; rescheduled today to 02/28/24 at 10 am Assessment & Plan (10/25/2023 12:51 PM EDT): - 05/14/23 CT scan report is inconclusive - Referred to ENT for further evaluation since pt continues to smoke cigarettes. Patient is aware of appointment in Aug 2023. - patient was aware of appointment but did not keep appointment, patient states she will consider rescheduling after eye surgery Assessment & Plan (08/04/2023 6:33 PM EST): - 05/14/23 CT scan report is inconclusive - Referred to ENT for further evaluation since pt continues to smoke cigarettes. Patient is aware of appointment in Aug 2023. Assessment & Plan (05/23/2023 10:13 AM EST): - 05/14/23 CT scan report is inconclusive - will refer to ENT for further evaluation since pt continues to smoke cigarettes Assessment & Plan (04/05/2023 11:54 AM EDT): - she continues to smoke cigarettes - will evaluate with CT scan - most recent lab from 03/31/23 in ED reviewed - continue working on smoking cessation Cassia present on residual alveolar ridge of maxil la 09/08/2022 Dental plaque 08/18/2022 Vitiligo 08/06/2022 Assessment & Plan (12/29/2024 11:00 AM EDT): - Pt has been evaluated by several different dermatologists - She has tried topical steroid and tacrolimus - She was recommended home phototherapy by her last dermatology appt with Dr. Elmore in Aug 2021 - She has a difficulty finding an affordable home phototherapy - In lieu of vitiligo being autoimmune disease and history of positive FELICITAS, she was referred back to grocery bagger for evaluation of autoimmune disorder. She did not keep an appt - She is currently using ruxolitinib, which has not been effective - She has tried all the available and effective topical treatment. She has not tried systemic medications such has steroid, mycophenolate, and other immunosuppressants. Because of her uncontrolled diabetes and medication side effects, we agreed not to try systemic medication at this time. - Consulted with Interactive Media Specialist who recommended UV-B - We will continue discussing following points: even the best treatment (usually narrowband UV-B) achieves success in about 60% of patients, and success is measured as 50% improvement since complete re- pigmentation is almost never achieved. With all vitiligo patients, they should be aware that re-pigmentation with vitiligo is not expected even with intensive treatment the pigment loss of vitiligo is not itself dangerous. The main issue with vitiligo is that it may reflect another ongoing systemic process that warrants medical attention, often an autoimmune process. recommend vitamin D supplementation as well as monitoring of thyroid for occult autoimmune thyroid disease. Optimizing vitamin D levels should be an essential part of any comprehensive treatment plan. In patients with diabetes, lack of disease control may also contribute to either disease progression and/or refractory response to treatment. Assessment & Plan (11/04/2024 4:06 PM EDT): - Pt has been evaluated by several different dermatologists - She has tried topical steroid and tacrolimus - She was recommended home phototherapy by her last dermatology appt with Dr. Elmore in Aug 2021 - She has a difficulty finding an affordable home phototherapy - In lieu of vitiligo being autoimmune disease and history of positive FELICITAS, she was referred back to grocery bagger for evaluation of autoimmune disorder. She did not keep an appt - She is currently using ruxolitinib, which has not been effective - She has tried all the available and effective topical treatment. She has not tried systemic medications such has steroid, mycophenolate, and other immunosuppressants. Because of her uncontrolled diabetes and medication side effects, we agreed not to try systemic medication at this time. - Consulted with Interactive Media Specialist who recommended UV-B - We will continue discussing following points: even the best treatment (usually narrowband UV-B) achieves success in about 60% of patients, and success is measured as 50% improvement since complete re- pigmentation is almost never achieved. With all vitiligo patients, they should be aware that re-pigmentation with vitiligo is not expected even with intensive treatment the pigment loss of vitiligo is not itself dangerous. The main issue with vitiligo is that it may reflect another ongoing systemic process that warrants medical attention, often an autoimmune process. recommend vitamin D supplementation as well as monitoring of thyroid for occult autoimmune thyroid disease. Optimizing vitamin D levels should be an essential part of any comprehensive treatment plan. In patients with diabetes, lack of disease control may also contribute to either disease progression and/or refractory response to treatment. Assessment & Plan (07/07/2024 11:46 AM EST): - Pt has been evaluated by several different dermatologists - She has tried topical steroid and tacrolimus - She was recommended home phototherapy by her last dermatology appt with Dr. Elmore in Aug 2021 - She has a difficulty finding an affordable home phototherapy - In lieu of vitiligo being autoimmune disease and history of positive FELICITAS, she was referred back to grocery bagger for evaluation of autoimmune disorder. She did not keep an appt - She is currently using ruxolitinib, which has not been effective - She has tried all the available and effective topical treatment. She has not tried systemic medications such has steroid, mycophenolate, and other immunosuppressants. Because of her uncontrolled diabetes and medication side effects, we agreed not to try systemic medication at this time. - Consulted with Interactive Media Specialist who recommended UV-B - We will continue discussing following points: even the best treatment (usually narrowband UV-B) achieves success in about 60% of patients, and success is measured as 50% improvement since complete re- pigmentation is almost never achieved. With all vitiligo patients, they should be aware that re-pigmentation with vitiligo is not expected even with intensive treatment the pigment loss of vitiligo is not itself dangerous. The main issue with vitiligo is that it may reflect another ongoing systemic process that warrants medical attention, often an autoimmune process. recommend vitamin D supplementation as well as monitoring of thyroid for occult autoimmune thyroid disease. Optimizing vitamin D levels should be an essential part of any comprehensive treatment plan. In patients with diabetes, lack of disease control may also contribute to either disease progression and/or refractory response to treatment. Assessment & Plan (02/11/2024 3:14 PM EDT): - Pt has been evaluated by several different dermatologists - She has tried topical steroid and tacrolimus - She was recommended home phototherapy by her last dermatology appt with Dr. Elmore in Aug 2021 - She has a difficulty finding an affordable home phototherapy - In lieu of vitiligo being autoimmune disease and history of positive FELICITAS, she was referred back to grocery bagger for evaluation of autoimmune disorder. She did not keep an appt - She is currently using ruxolitinib, which has not been effective - She has tried all the available and effective topical treatment. She has not tried systemic medications such has steroid, mycophenolate, and other immunosuppressants. Because of her uncontrolled diabetes and medication side effects, we agreed not to try systemic medication at this time. - Consulted with Interactive Media Specialist who recommended UV-B - We will continue discussing following points: even the best treatment (usually narrowband UV-B) achieves success in about 60% of patients, and success is measured as 50% improvement since complete re- pigmentation is almost never achieved. With all vitiligo patients, they should be aware that re-pigmentation with vitiligo is not expected even with intensive treatment the pigment loss of vitiligo is not itself dangerous. The main issue with vitiligo is that it may reflect another ongoing systemic process that warrants medical attention, often an autoimmune process. recommend vitamin D supplementation as well as monitoring of thyroid for occult autoimmune thyroid disease. Optimizing vitamin D levels should be an essential part of any comprehensive treatment plan. In patients with diabetes, lack of disease control may also contribute to either disease progression and/or refractory response to treatment. Assessment & Plan (10/25/2023 12:10 PM EDT): - Pt has been evaluated by several different dermatologists - She has tried topical steroid and tacrolimus - She was recommended home phototherapy by her last dermatology appt with Dr. Elmore in Aug 2021 - She has a difficulty finding an affordable home phototherapy - In lieu of vitiligo being autoimmune disease and history of positive FELICITAS, she was referred back to grocery bagger for evaluation of autoimmune disorder. She did not keep an appt - She is currently using ruxolitinib, which has not been effective - She has tried all the available and effective topical treatment. She has not tried systemic medications such has steroid, mycophenolate, and other immunosuppressants. Because of her uncontrolled diabetes and medication side effects, we agreed not to try systemic medication at this time. - Consulted with Interactive Media Specialist who recommended UV-B - We will continue discussing following points: even the best treatment (usually narrowband UV-B) achieves success in about 60% of patients, and success is measured as 50% improvement since complete re- pigmentation is almost never achieved. With all vitiligo patients, they should be aware that re-pigmentation with vitiligo is not expected even with intensive treatment the pigment loss of vitiligo is not itself dangerous. The main issue with vitiligo is that it may reflect another ongoing systemic process that warrants medical attention, often an autoimmune process. recommend vitamin D supplementation as well as monitoring of thyroid for occult autoimmune thyroid disease. Optimizing vitamin D levels should be an essential part of any comprehensive treatment plan. In patients with diabetes, lack of disease control may also contribute to either disease progression and/or refractory response to treatment. Assessment & Plan (08/04/2023 6:41 PM EST): - Pt has been evaluated by several different dermatologists - She has tried topical steroid and tacrolimus - She was recommended home phototherapy by her last dermatology appt with Dr. Elmore in Aug 2021 - She has a difficulty finding an affordable home phototherapy - In lieu of vitiligo being autoimmune disease and history of positive FELICITAS, she was referred back to grocery bagger for evaluation of autoimmune disorder. She did not keep an appt - She is currently using ruxolitinib, which has not been effective - She has tried all the available and effective topical treatment. She has not tried systemic medications such has steroid, mycophenolate, and other immunosuppressants. Because of her uncontrolled diabetes and medication side effects, we agreed not to try systemic medication at this time. - Consulted with Interactive Media Specialist who recommended UV-B - We will continue discussing following points: even the best treatment (usually narrowband UV-B) achieves success in about 60% of patients, and success is measured as 50% improvement since complete re- pigmentation is almost never achieved. With all vitiligo patients, they should be aware that re-pigmentation with vitiligo is not expected even with intensive treatment the pigment loss of vitiligo is not itself dangerous. The main issue with vitiligo is that it may reflect another ongoing systemic process that warrants medical attention, often an autoimmune process. recommend vitamin D supplementation as well as monitoring of thyroid for occult autoimmune thyroid disease. Optimizing vitamin D levels should be an essential part of any comprehensive treatment plan. In patients with diabetes, lack of disease control may also contribute to either disease progression and/or refractory response to treatment. Assessment & Plan (05/23/2023 1:17 PM EST): - Pt has been evaluated by several different dermatologists - She has tried topical steroid and tacrolimus - She was recommended home phototherapy by her last dermatology appt with Dr. Elmore in Aug 2021 - She has a difficulty finding an affordable home phototherapy - In lieu of vitiligo being autoimmune disease and history of positive FELICITAS, she was referred back to grocery bagger for evaluation of autoimmune disorder. She did not keep an appt - She is currently using ruxolitinib, which has not been effective - She has tried all the available and effective topical treatment. She has not tried systemic medications such has steroid, mycophenolate, and other immunosuppressants. Because of her uncontrolled diabetes and medication side effects, we agreed not to try systemic medication at this time. Assessment & Plan (04/06/2023 7:06 AM EDT): - Pt has been evaluated by several different dermatologists - She has tried topical steroid and tacrolimus - She was recommended home phototherapy by her last dermatology appt with Dr. Elmore in Aug 2021 - She has a difficulty finding an affordable home phototherapy - In lieu of vitiligo being autoimmune disease and history of positive FELICITAS, she was referred back to grocery bagger for evaluation of autoimmune disorder. She did not keep an appt - She is currently using ruxolitinib, which has not been effective - She has tried all the available and effective topical treatment. She has not tried systemic medications such has steroid, mycophenolate, and other immunosuppressants. Because of her uncontrolled diabetes and medication side effects, we agreed not to try systemic medication at this time. Assessment & Plan (02/05/2023 11:44 AM EDT): - Pt has been evaluated by several different dermatologists - She has tried topical steroid and tacrolimus - She was recommended home phototherapy by her last dermatology appt with Dr. Elmore in Aug 2021 - She has a difficulty finding an affordable home phototherapy - In lieu of vitiligo being autoimmune disease and history of positive FELICITAS, she was referred back to [facility] for evaluation of autoimmune disorder. She did not keep an appt - She is currently using opzerula, which has not been effective - will get an expert opinion Assessment & Plan (10/22/2022 6:56 AM EDT): - Pt has been evaluated by several different dermatologists - She has tried topical steroid and tacrolimus - She was recommended home phototherapy by her last dermatology appt with Dr. Elmore in Aug 2021 - She has a difficulty finding an affordable home phototherapy - In lieu of vitiligo being autoimmune disease and history of positive FELICITAS, she was referred back to [facility] for evaluation of autoimmune disorder. Assessment & Plan (08/06/2022 4:08 PM EST): - Pt has been evaluated by several different dermatologists - She has tried topical steroid and tacrolimus - She was recommended home phototherapy by her last dermatology appt with Dr. Elmore in Aug 2021 - She has a difficulty finding an affordable home phototherapy - In lieu of vitiligo being autoimmune disease and history of positive FELICITAS, I will refer back to [facility] for evaluation of autoimmune disorder. PTSD (post-traumatic stress disorder) 07/31/2022 Tobacco dependence 07/31/2022 Assessment & Plan (12/29/2024 11:00 AM EDT): Pt started smoking again after long-period of non-smoking status. -Pt was recommended to have Lung Cancer Screening CT; Pt declined. -Previously tried nicotine inhaler -PT reports that she smokes around half a pack a day -Encouraged to work on smoking cessation. - Pt was seen by our pharmacist and started NRT - Patient refused lung cancer screening; will revisit at next visit Assessment & Plan (11/07/2024 1:36 PM EDT): Pt started smoking again after long-period of non-smoking status. -Pt was recommended to have Lung Cancer Screening CT; Pt declined. -Previously tried nicotine inhaler -PT reports that she smokes around half a pack a day -Encouraged to work on smoking cessation. - Pt was seen by our pharmacist and started NRT - Patient refused lung cancer screening; will revisit at next visit Assessment & Plan (07/07/2024 12:10 PM EST): Pt started smoking again after long-period of non-smoking status. -Pt was recommended to have Lung Cancer Screening CT; Pt declined. -Previously tried nicotine inhaler -PT reports that she smokes around half a pack a day -Encouraged to work on smoking cessation. Assessment & Plan (04/24/2024 12:11 PM EDT): Pt started smoking again after long-period of non-smoking status. -Pt was recommended to have Lung Cancer Screening CT; Pt declined. -Previously tried nicotine inhaler -Encouraged to work on smoking cessation. Assessment & Plan (02/11/2024 1:15 PM EDT): Pt started smoking again after long-period of non-smoking status. -Pt was recommended to have Lung Cancer Screening CT; Pt declined. -Previously tried nicotine inhaler -Encouraged to work on smoking cessation. Assessment & Plan (10/25/2023 12:10 PM EDT): Pt started smoking again after long-period of non-smoking status. -Pt was recommended to have Lung Cancer Screening CT; Pt declined. -Previously tried nicotine inhaler -Encouraged to work on smoking cessation. Assessment & Plan (08/04/2023 6:35 PM EST): Pt started smoking again after long-period of non-smoking status. -Pt was recommended to have Lung Cancer Screening CT; Pt declined. -Previously tried nicotine inhaler -Encouraged to work on smoking cessation. Assessment & Plan (05/23/2023 10:13 AM EST): Pt started smoking again after long-period of non-smoking status. -Pt was recommended to have Lung Cancer Screening CT; Pt declined. -Trial of nicotine inhaler -Encouraged to work on smoking cessation. Assessment & Plan (04/06/2023 7:06 AM EDT): Pt started smoking again after long-period of non-smoking status. -Pt was recommended to have Lung Cancer Screening CT; Pt declined. -Trial of nicotine inhaler -Encouraged to work on smoking cessation. Assessment & Plan (02/05/2023 11:44 AM EDT): Pt started smoking again after long-period of non-smoking status. -Pt was recommended to have Lung Cancer Screening CT; Pt declined. -Trial of nicotine inhaler -Encouraged to work on smoking cessation. Assessment & Plan (10/18/2022 10:26 AM EDT): Pt started smoking again after long-period of non-smoking status. -Pt was recommended to have Lung Cancer Screening CT; Pt declined. -Encouraged to work on smoking cessation. Assessment & Plan (07/31/2022 4:55 PM EST): Pt started smoking again after long-period of non-smoking status. -Pt was recommended to have Lung Cancer Screening CT; Pt declined. -Encouraged to work on smoking cessation. Callus of foot 07/31/2022 Assessment & Plan (07/31/2022 4:35 PM EST): - left foot, lateral aspect - wear comfortable shoes - if no improvement, will refer to electrolytic de scaler and/or consider trial of cryotherapy Tendinitis of right rotator cuff 11/13/2018 Assessment & Plan (08/06/2022 4:15 PM EST): - MRI in 2018 showed rotator cuff tear - Previously treated by [facility] and received steroid injection - Surgical treatment was not recommended Hepatitis C antibody test positive 07/18/2018 Assessment & Plan (07/07/2024 11:45 AM EST): -previously undetectable viral load -her had hep C -will recheck Assessment & Plan (10/25/2023 12:07 PM EDT): -previously undetectable viral load -her had hep C -will recheck Assessment & Plan (05/23/2023 1:17 PM EST): -previously undetectable viral load -her had hep C -will recheck Assessment & Plan (04/06/2023 7:08 AM EDT): -previously undetectable viral load -her had hep C -will recheck Assessment & Plan (07/31/2022 4:56 PM EST): -previously undetectable viral load -her had hep C -will recheck Asthma 03/29/2017 Assessment & Plan (12/29/2024 10:59 AM EDT): -Continue Advair or Wixela as maintenance -Cont Albuterol prn -Continue montelukast -Continue working on smoking cessation. Assessment & Plan (11/04/2024 4:04 PM EDT): -Continue Advair or Wixela as maintenance -Cont Albuterol prn -Continue montelukast -Continue working on smoking cessation. Assessment & Plan (07/12/2024 7:11 AM EST): -Continue Advair or Wixela as maintenance -Cont Albuterol prn -Continue montelukast -Continue working on smoking cessation. Assessment & Plan (06/02/2024 3:38 PM EST): Has acute exacerbation likely related to current URI/sinusitis. Use albuterol inh q4h prn SOB Continue Wixela + Singulair, advised to quit smoking Assessment & Plan (04/24/2024 12:07 PM EDT): -Continue Advair or Wixela as maintenance -Cont Albuterol prn -Continue montelukast -Continue working on smoking cessation. Assessment & Plan (04/06/2023 6:54 AM EDT): -Continue Advair or Wixela as maintenance -Cont Albuterol prn -Continue montelukast -Continue working on smoking cessation. Assessment & Plan (10/22/2022 6:51 AM EDT): -Continue Advair or Wixela as maintenance -Cont Albuterol prn -Continue Singulair -Continue working on smoking cessation. Assessment & Plan (07/31/2022 4:53 PM EST): -Pt reports improvement of sxs with Advair than Flovent. -Continue Advair as maintenance -Cont Albuterol prn -Continue Singulair -Continue working on smoking cessation. Dyslipidemia 10/28/2015 Assessment & Plan (01/10/2025 7:06 AM EDT): - Last Lipid Profile: 02/11/24 Total cholesterol 216; LDL 141; Triglyceride 104; HDL 55 - Recommended high-intensity statin per guideline - Current medication atorvastatin, started since hospitalization for cardiomyopathy in September 2024 - Treatment Hx: She developed GI upset with simvastatin and atorvastatin. She was taking pravastatin 20 mg at bedtime, but self-discontinued because she perceives that it causes more harm than benefit and she is not motivated; she was prescribed rosuvastatin 5 mg, but is hesitant to try any statin at this time - Work on lifestyle modifications Assessment & Plan (11/04/2024 4:37 PM EDT): - Last Lipid Profile: 02/11/24 Total cholesterol 216; LDL 141; Triglyceride 104; HDL 55 - Recommended high-intensity statin per guideline - Current medication atorvastatin, started since hospitalization for cardiomyopathy - Treatment Hx: She developed GI upset with simvastatin and atorvastatin. She was taking pravastatin 20 mg at bedtime, but self-discontinued because she perceives that it causes more harm than benefit and she is not motivated; she was prescribed rosuvastatin 5 mg, but is hesitant to try any statin at this time - Work on lifestyle modifications Assessment & Plan (07/12/2024 7:16 AM EST): - Last Lipid Profile: 02/11/24 Total cholesterol 216; LDL 141; Triglyceride 104; HDL 55 - Recommended high-intensity statin per guideline - Treatment Hx: She developed GI upset with simvastatin and atorvastatin. She was taking pravastatin 20 mg at bedtime, but self-discontinued because she perceives that it causes more harm than benefit and she is not motivated; she was prescribed rosuvastatin 5 mg, but is hesitant to try any statin at this time -Work on lifestyle modifications - reassess her willingness to try statin at next visit Assessment & Plan (04/27/2024 6:02 AM EDT): - Last Lipid Profile: 02/11/24 Total cholesterol 216; LDL 141; Triglyceride 104; HDL 55 - Recommended high-intensity statin per guideline - Treatment Hx: She developed GI upset with simvastatin and atorvastatin. She was taking pravastatin 20 mg at bedtime, but self-discontinued because she perceives that it causes more harm than benefit and she is not motivated; she was prescribed rosuvastatin 5 mg, but is hesitant to try any statin at this time -Work on lifestyle modifications - reassess her willingness to try statin at next visit Assessment & Plan (02/11/2024 3:22 PM EDT): - Last Lipid Profile: 08/22/22 TC 217; TG 138 ; HDL 66 ; LDL 125 - moderate intensity statin therapy is recommended - Treatment Hx: She developed GI upset with simvastatin and atorvastatin. She was taking pravastatin 20 mg at bedtime, but self-discontinued because she perceives that it causes more harm than benefit and she is not motivated; she was prescribed rosuvastatin 5 mg, but is hesitant to try any statin at this time -Work on lifestyle modifications - reassess her willingness to try statin at next visit Assessment & Plan (10/25/2023 12:07 PM EDT): - Last Lipid Profile: 08/22/22 TC 217; TG 138 ; HDL 66 ; LDL 125 - moderate intensity statin therapy is recommended - Treatment Hx: She developed GI upset with simvastatin and atorvastatin. She was taking pravastatin 20 mg at bedtime, but self-discontinued because she perceives that it causes more harm than benefit and she is not motivated; she was prescribed rosuvastatin 5 mg, but is hesitant to try any statin at this time -Work on lifestyle modifications - reassess her willingness to try statin at next visit Assessment & Plan (08/04/2023 6:32 PM EST): - Last Lipid Profile: 08/22/22 TC 217; TG 138 ; HDL 66 ; LDL 125 - moderate intensity statin therapy is recommended - Treatment Hx: She developed GI upset with simvastatin and atorvastatin. She was taking pravastatin 20 mg at bedtime, but self-discontinued because she perceives that it causes more harm than benefit and she is not motivated; she was prescribed rosuvastatin 5 mg, but is hesitant to try any statin at this time -Work on lifestyle modifications - reassess her willingness to try statin at next visit Assessment & Plan (05/23/2023 10:15 AM EST): - Last Lipid Profile: 08/22/22 TC 217; TG 138 ; HDL 66 ; LDL 125 - moderate intensity statin therapy is recommended - Treatment Hx: She developed GI upset with simvastatin and atorvastatin. She was taking pravastatin 20 mg at bedtime, but self-discontinued because she perceives that it causes more harm than benefit and she is not motivated; she was prescribed rosuvastatin 5 mg, but is hesitant to try any statin at this time -Work on lifestyle modifications - reassess her willingness to try statin at next visit Assessment & Plan (04/06/2023 7:08 AM EDT): - Last Lipid Profile: 08/22/22 TC 217; TG 138 ; HDL 66 ; LDL 125 - moderate intensity statin therapy is recommended - Treatment Hx: She developed GI upset with simvastatin and atorvastatin. She was taking pravastatin 20 mg at bedtime, but self-discontinued because she perceives that it causes more harm than benefit and she is not motivated; she was prescribed rosuvastatin 5 mg, but is hesitant to try any statin at this time -Work on lifestyle modifications - reassess her willingness to try statin at next visit Assessment & Plan (02/05/2023 11:44 AM EDT): - Last Lipid Profile: 08/22/22 TC 217; TG 138 ; HDL 66 ; LDL 125 - moderate intensity statin therapy is recommended - Treatment Hx: She developed GI upset with simvastatin and atorvastatin. She was taking pravastatin 20 mg at bedtime, but self-discontinued because she perceives that it causes more harm than benefit and she is not motivated; she was prescribed rosuvastatin 5 mg, but is hesitant to try any statin at this time -Work on lifestyle modifications - reassess her willingness to try statin at next visit Assessment & Plan (10/22/2022 7:00 AM EDT): - Last Lipid Profile: 08/22/22 TC 217; TG 138 ; HDL 66 ; LDL 125 - moderate intensity statin therapy is recommended - Treatment Hx: She developed GI upset with simvastatin and atorvastatin. She was taking pravastatin 20 mg at bedtime, but self-discontinued because she perceives that it causes more harm than benefit and she is not motivated; she was prescribed rosuvastatin 5 mg, but is hesitant to try any statin at this time -Work on lifestyle modifications - reassess her willingness to try statin at next visit Assessment & Plan (08/06/2022 4:42 PM EST): Last Lipid Profile: 07/04/21 TC 188; TG 103; HDL 45; LDL 132. -Treatment Hx: She developed GI upset with simvastatin and atorvastatin. She was taking pravastatin 20 mg at bedtime, but self-discontinued because she ran out its refill -moderate intensity statin therapy is recommended -will try rosuvastatin 10 mg qhs -Work on lifestyle modifications -check lipid profile and LFT in 3 mo Fibromyalgia 10/28/2015 Assessment & Plan (12/29/2024 10:59 AM EDT): -[facility] provider: Dr. Oziel KLINE. -Previously referred to [facility] for positive FELICITAS and arthralgia / myalgia, but she did not keep appt -Continue current medications: duloexetine Assessment & Plan (04/24/2024 12:08 PM EDT): -[facility] provider: Dr. Oziel KLINE. -Previously referred to [facility] for positive FELICITAS and arthralgia / myalgia, but she did not keep appt -Continue current medications: duloexetine Assessment & Plan (10/25/2023 1:47 PM EDT): -[facility] provider: Dr. Oziel KLINE. -Previously referred to [facility] for positive FELICITAS and arthralgia / myalgia, but she did not keep appt -Continue current medications: duloexetine Assessment & Plan (04/06/2023 6:56 AM EDT): -[facility] provider: Dr. Oziel KLINE. -Previously referred to [facility] for positive FELICITAS and arthralgia / myalgia, but she did not keep appt -Continue current medications: duloexetine Assessment & Plan (02/05/2023 11:42 AM EDT): -[facility] provider: Dr. Oziel KLINE. -Previously referred to [facility] for positive FELICITAS and arthralgia / myalgia, but she did not keep appt -Continue current medications: Cymbalta Assessment & Plan (10/22/2022 6:53 AM EDT): -[facility] provider: Dr. Oziel KLINE. -Previously referred to [facility] for positive FELICITAS and arthralgia / myalgia, but she did not keep appt -Continue current medications: Cymbalta Assessment & Plan (08/06/2022 4:17 PM EST): -[facility] provider: Dr. Oziel KLINE. -Previously referred to [facility] for positive FELICITAS and arthralgia / myalgia, but she did not keep appt -Continue current medications: Cymbalta Carpal tunnel syndrome 07/20/2015 Assessment & Plan (07/07/2024 12:17 PM EST): - Pt reports neuropathy, most likely tied to her carpal tunnel - last NCT/EMG in 2018 - previously followed by [facility] - Recommended to wear wrist brace - possible cervical radiculopathy Assessment & Plan (02/11/2024 3:08 PM EDT): - bilateral - last NCT/EMG in 2018 - previously followed by [facility] - wear wrist brace - possible cervical radiculopathy Assessment & Plan (08/06/2022 4:14 PM EST): - bilateral - last NCT/EMG in 2018 - previously followed by [facility] Chronic depression 07/20/2015 Assessment & Plan (12/29/2024 10:58 AM EDT): [facility] provider: Dr. Oziel KLINE. -Continue current medications: duloxetine; buspirone -Grieving from her who of COVID19 in 2020 Assessment & Plan (11/04/2024 4:05 PM EDT): [facility] provider: Dr. Oziel KLINE. -Continue current medications: duloxetine; buspirone -Grieving from her who of COVID19 in 2020 Assessment & Plan (07/12/2024 7:19 AM EST): [facility] provider: Dr. Oziel KLINE. -Continue current medications: duloxetine; buspirone -Grieving from her who of COVID19 in 2020 Assessment & Plan (04/24/2024 2:41 PM EDT): [facility] provider: Dr. Oziel KLINE. -Continue current medications: duloexetine -Grieving from her who of COVID19 in 2020 Assessment & Plan (02/11/2024 3:16 PM EDT): [facility] provider: Dr. Oziel KLINE. -Continue current medications: duloexetine -Grieving from her who of COVID19 in 2020 Assessment & Plan (08/04/2023 6:31 PM EST): [facility] provider: Dr. Oziel KLINE. -Continue current medications: duloexetine -Grieving from her who of COVID19 in 2020 Assessment & Plan (05/23/2023 10:15 AM EST): [facility] provider: Dr. Oziel KLINE. -Continue current medications: duloexetine -Grieving from her who of COVID19 in 2020 Assessment & Plan (04/06/2023 7:09 AM EDT): [facility] provider: Dr. Oziel KLINE. -Continue current medications: duloexetine -Grieving from her who of COVID19 in 2020 Assessment & Plan (10/18/2022 10:27 AM EDT): [facility] provider: Dr. Oziel KLINE. -Continue current medications: Cymbalta Assessment & Plan (07/31/2022 4:55 PM EST): [facility] provider: Dr. Oziel KLINE. -Continue current medications: Cymbalta Vitamin D deficiency 11/17/2014 Assessment & Plan (12/29/2024 10:58 AM EDT): - continue vitamin D suplementation Assessment & Plan (11/04/2024 4:05 PM EDT): - continue vitamin D suplementation Assessment & Plan (07/12/2024 7:13 AM EST): - continue vitamin D suplementation Assessment & Plan (10/25/2023 12:03 PM EDT): - continue vitamin D suplementation Assessment & Plan (08/04/2023 6:46 PM EST): - continue vitamin D suplementation Diabetes mellitus, type 2 05/19/2014 Assessment & Plan (12/31/2024 10:55 PM EDT): -A1C 7.3% on 12/29/24, improved from 7.7% on 11/04/24 -Previously followed by [facility] -Encouraged to continue working on lifestyle modifications and SMBG. -Poor medication adherence, has not had medication for last 3 months -Continue basal insulin, Lantus, 14 units every 24 hours -Hold dulaglutide 1.5 mg weekly since patient wants to gain weight Treatment Hx: -Previously on Trulicity 1.5 mg weekly, patient has self-discontinued and restarted in Jul 2022, again pt requested it to be discontinued due to weight loss, then restarted again -Jardiance was discontinued due to recurrent vaginal candidiasis -Metformin regular and ER were discontinued due to GI side effect - Humalog 50/50 15 units x2/day was prescribed hammer adjuster in the past. Patient self discontinued Humalog. DM Maintenance: - Last eye exam: 03/12/24. No retinopathy. - Last foot exam: 11/04/24 - Last microalbumin test: 02/11/24 no microalbuminuria - Last Lipid Profile: 02/11/24 Total cholesterol 216; LDL 141; Triglyceride 104; HDL 55 - Last dental exam: [facility] Assessment & Plan (11/04/2024 4:35 PM EDT): -A1C 7.7% on 11/04/24, improved from 8.9% on 07/07/24 -Previously followed by [facility] end[facility] -Encouraged to continue working on lifestyle modifications and SMBG. -Poor medication adherence, has not had medication for last 3 months -Continue basal insulin, Lantus, 14 units every 24 hours -Hold dulaglutide 1.5 mg weekly since patient wants to gain weight Treatment Hx: -Previously on Trulicity 1.5 mg weekly, patient has self-discontinued and restarted in Jul 2022, again pt requested it to be discontinued due to weight loss, then restarted again -Jardiance was discontinued due to recurrent vaginal candidiasis -Metformin regular and ER were discontinued due to GI side effect - Humalog 50/50 15 units x2/day was prescribed hammer adjuster in the past. Patient self discontinued Humalog. DM Maintenance: - Last eye exam: 03/12/24. No retinopathy. - Last foot exam: 11/04/24 - Last microalbumin test: 02/11/24 no microalbuminuria - Last lipid profile: 02/11/24 - Last dental exam: [facility] Assessment & Plan (07/12/2024 7:15 AM EST): -A1C 8.9% on 07/07/24 -Previously followed by [facility] endocr[facility] -Encouraged to continue working on lifestyle modifications and SMBG. -Poor medication adherence, has not had medication for last 3 months -Increase basal insulin, Lantus, 14 units every 24 hours -Hold dulaglutide 1.5 mg weekly since patient wants to gain weight Treatment Hx: -Previously on Trulicity 1.5 mg weekly, patient has self-discontinued and restarted in Jul 2022, again pt requested it to be discontinued due to weight loss, then restarted again -Jardiance was discontinued due to recurrent vaginal candidiasis -Metformin regular and ER were discontinued due to GI side effect - Humalog 50/50 15 units x2/day was prescribed hammer adjuster in the past. Patient self discontinued Humalog. DM Maintenance: - Last eye exam: 03/12/24. No retinopathy. - Last foot exam: 07/07/24 - Last microalbumin test: 02/11/24 no microalbuminuria - Last lipid profile: 02/11/24 - Last dental exam: [facility] Assessment & Plan (04/24/2024 12:15 PM EDT): -A1C 10.2% on 04/24/24 -Previously followed by [facility] endocr[facility] -Encouraged to continue working on lifestyle modifications and SMBG. -Poor medication adherence, has not had medication for last 3 months -Restart basal insulin, Lantus, 10 units every 24 hours, titrate up by 2 units every 3 days until fasting blood glucose falls between 80 and 130, stop at 22 units -Hold dulaglutide 1.5 mg weekly since patient wants to gain weight Treatment Hx: -Previously on Trulicity 1.5 mg weekly, patient has self-discontinued and restarted in Jul 2022, again pt requested it to be discontinued due to weight loss, then restarted again -Jardiance was discontinued due to recurrent vaginal candidiasis -Metformin regular and ER were discontinued due to GI side effect - Humalog 50/50 15 units x2/day was prescribed hammer adjuster in the past. Patient self discontinued Humalog. DM Maintenance: - Last eye exam: 03/12/24. No retinopathy. - Last foot exam: 04/24/24 - Last microalbumin test: 02/11/24 no microalbuminuria - Last lipid profile: 02/11/24 - Last dental exam: [facility] 2019 Assessment & Plan (02/11/2024 3:14 PM EDT): -A1C 7.1% on 11/20/23 -Previously followed by [facility] endocrinology -Encouraged to continue working on lifestyle modifications and SMBG. -Questionable medication adherence -Continue basal insulin, Lantus, 16 units every 24 hours, titrate up by 2 units every 3 days until fasting blood glucose falls between 80 and 130, stop at 22 units -Continue dulaglutide 1.5 mg weekly Treatment Hx: -Previously on Trulicity 1.5 mg weekly, patient has self-discontinued and restarted in Jul 2022, again pt requested it to be discontinued due to weight loss, then restarted again -Jardiance was discontinued due to recurrent vaginal candidiasis -Metformin regular and ER were discontinued due to GI side effect - Humalog 50/50 15 units x2/day was prescribed hammer adjuster in the past. Patient self discontinued Humalog. DM Maintenance: - Last eye exam: 09/12/23. No retinopathy. - Last foot exam: 01/30/23 - Last microalbumin test: 11/23/23 no microalbuminuria - Last lipid profile: 11/23/23 - Last dental exam: [facility] 2019 Assessment & Plan (11/20/2023 10:14 AM EDT): -A1C 7.1% on 11/20/23 -Previously followed by [facility] endocrinology -Encouraged to continue working on lifestyle modifications and SMBG. -Continue basal insulin, Lantus, 16 units every 24 hours, titrate up by 2 units every 3 days until fasting blood glucose falls between 80 and 130, stop at 22 units -Continue dulaglutide 1.5 mg weekly Treatment Hx: -Previously on Trulicity 1.5 mg weekly, patient has self-discontinued and restarted in Jul 2022, again pt requested it to be discontinued due to weight loss, then restarted again -Jardiance was discontinued due to recurrent vaginal candidiasis -Metformin regular and ER were discontinued due to GI side effect - Humalog 50/50 15 units x2/day was prescribed hammer adjuster in the past. Patient self discontinued Humalog. DM Maintenance: - Last eye exam: 09/12/23. No retinopathy. - Last foot exam: 01/30/23 - Last microalbumin test: 07/04/21 UACR 3 - Last FLP: 08/22/22 TC 217; TG 138 ; HDL 66 ; LDL 125 - Last dental exam: [facility] 2019 - Follow up in 3 mo or sooner Assessment & Plan (10/25/2023 12:49 PM EDT): -A1C 7.2% on 10/25/23 -Previously followed by [facility] endocrinology -Encouraged to continue working on lifestyle modifications and SMBG. -Continue basal insulin, Lantus, 16 units every 24 hours, titrate up by 2 units every 3 days until fasting blood glucose falls between 80 and 130, stop at 22 units -Continue dulaglutide 1.5 mg weekly Treatment Hx: -Previously on Trulicity 1.5 mg weekly, patient has self-discontinued and restarted in Jul 2022, again pt requested it to be discontinued due to weight loss, then restarted again -Jardiance was discontinued due to recurrent vaginal candidiasis -Metformin regular and ER were discontinued due to GI side effect - Humalog 50/50 15 units x2/day was prescribed hammer adjuster in the past. Patient self discontinued Humalog. DM Maintenance: - Last eye exam: 09/12/23. No retinopathy. - Last foot exam: 01/30/23 - Last microalbumin test: 07/04/21 UACR 3 - Last FLP: 08/22/22 TC 217; TG 138 ; HDL 66 ; LDL 125 - Last dental exam: [facility] 2019 - Follow up in 3 mo or sooner Assessment & Plan (08/04/2023 6:23 PM EST): -A1C 7.4% on 07/30/23, improving. 8.5% on 04/05/23, improved from 9.3% on 01/30/23. -Previously followed by [facility] endocrinology -Encouraged to continue working on lifestyle modifications and SMBG. -Continue basal insulin, Lantus, 16 units every 24 hours, titrate up by 2 units every 3 days until fasting blood glucose falls between 80 and 130, stop at 22 units -Continue dulaglutide 1.5 mg weekly Treatment Hx: -Previously on Trulicity 1.5 mg weekly, patient has self-discontinued and restarted in Jul 2022, again pt requested it to be discontinued due to weight loss, then restarted again -Jardiance was discontinued due to recurrent vaginal candidiasis -Metformin regular and ER were discontinued due to GI side effect - Humalog 50/50 15 units x2/day was prescribed hammer adjuster in the past. Patient self discontinued Humalog. DM Maintenance: - Last eye exam: 08/04/21. No retinopathy. - Last foot exam: 01/30/23 - Last microalbumin test: 07/04/21 UACR 3 - Last FLP: 08/22/22 TC 217; TG 138 ; HDL 66 ; LDL 125 - Last dental exam: [facility] 2019 - Follow up in 3 mo or sooner Assessment & Plan (05/23/2023 10:12 AM EST): -A1C 8.5% on 04/05/23, improved from 9.3% on 01/30/23, possibly due to poor PO intake -Previously followed by [facility] endocrinology -Encouraged to continue working on lifestyle modifications and SMBG. -Restart basal insulin, Lantus, 16 units every 24 hours, titrate up by 2 units every 3 days until fasting blood glucose falls between 80 and 130, stop at 22 units Treatment Hx: -Previously on Trulicity 1.5 mg weekly, patient has self-discontinued and restarted in Jul 2022, again pt requested it to be discontinued due to weight loss -Previously on Lantus insulin 20 units, patient has self-disocntinued -Jardiance was discontinued due to recurrent vaginal candidiasis -Metformin regular and ER were discontinued due to GI side effect - Humalog 50/50 15 units x2/day was prescribed hammer adjuster in the past. Patient self discontinued Humalog. DM Maintenance: - Last eye exam: 08/04/21. No retinopathy. - Last foot exam: 01/30/23 - Last microalbumin test: 07/04/21 UACR 3 - Last FLP: 08/22/22 TC 217; TG 138 ; HDL 66 ; LDL 125 - Last dental exam: [facility] 2019 - Follow up in 3 mo or sooner Assessment & Plan (04/06/2023 6:59 AM EDT): -A1C 8.5% on 04/05/23, improved from 9.3% on 01/30/23, possibly due to poor PO intake -Previously followed by [facility] endocrinology -Encouraged to continue working on lifestyle modifications and SMBG. -Restart basal insulin, Lantus, 16 units every 24 hours, titrate up by 2 units every 3 days until fasting blood glucose falls between 80 and 130, stop at 22 units Treatment Hx: -Previously on Trulicity 1.5 mg weekly, patient has self-discontinued and restarted in Jul 2022, again pt requested it to be discontinued due to weight loss -Previously on Lantus insulin 20 units, patient has self-disocntinued -Jardiance was discontinued due to recurrent vaginal candidiasis -Metformin regular and ER were discontinued due to GI side effect - Humalog 50/50 15 units x2/day was prescribed hammer adjuster in the past. Patient self discontinued Humalog. DM Maintenance: - Last eye exam: 08/04/21. No retinopathy. - Last foot exam: 01/30/23 - Last microalbumin test: 07/04/21 UACR 3 - Last FLP: 08/22/22 TC 217; TG 138 ; HDL 66 ; LDL 125 - Last dental exam: [facility] 2019 - Follow up in 3 mo or sooner Assessment & Plan (02/05/2023 11:41 AM EDT): -A1c 9.3% on 01/30/23, trending upwards. 8.1% on 10/18/22 Personal best 6.2% on 07/04/21. -Previously followed by [facility] endocrinology -Encouraged to continue working on lifestyle modifications and SMBG. -Restart Trulicity Treatment Hx: -Previously on Trulicity 1.5 mg weekly, patient has self-discontinued and restarted in Jul 2022 -Previously on Lantus insulin 20 units, patient has self-disocntinued -Jardiance was discontinued due to recurrent vaginal candidiasis -Metformin regular and ER were discontinued due to GI side effect - Humalog 50/50 15 units x2/day was prescribed hammer adjuster in the past. Patient self discontinued Humalog. DM Maintenance: - Last eye exam: 08/04/21. No retinopathy. - Last foot exam: 01/30/23 - Last microalbumin test: 07/04/21 UACR 3 - Last FLP: 08/22/22 TC 217; TG 138 ; HDL 66 ; LDL 125 - Last dental exam: [facility] 2019 - Follow up in 3 mo or sooner Assessment & Plan (10/22/2022 6:55 AM EDT): -A1c 8.1% on 10/18/22, worsening from 6.9% on 02/27/22. Personal best 6.2% on 07/04/21. -Previously followed by [facility] endocrinology -Encouraged to continue working on lifestyle modifications and SMBG. - Increase Lantus to 20 units qhs - Continue Trulicity Treatment Hx: -Previously on Trulicity 1.5 mg weekly, patient has self-discontinued and restarted in Jul 2022 -Jardiance was discontinued due to recurrent vaginal candidiasis -Metformin regular and ER were discontinued due to GI side effect - Humalog 50/50 15 units x2/day was prescribed hammer adjuster in the past. Patient self discontinued Humalog. DM Maintenance: - Last eye exam: 08/04/21. No retinopathy. - Last foot exam: 11/24/21 - Last microalbumin test: 07/04/21 UACR 3 - Last FLP: 08/22/22 TC 217; TG 138 ; HDL 66 ; LDL 125 - Last dental exam: [facility] 2019 - Follow up in 3 mo or sooner Assessment & Plan (07/31/2022 4:52 PM EST): -A1c 6.9% today 02/27/22. Stable. Personal best 6.2% on 07/04/21. -A1C 12.7% on 10/29/20. -Previously followed by [facility] endocrinology -Encouraged to continue working on lifestyle modifications and SMBG. - Continue Lantus 25 units qhs - Continue Trulicity 1.5 mg weekly Treatment Hx: -Jardiance was discontinued due to recurrent vaginal candidiasis -Metformin regular and ER were discontinued due to GI side effect - Humalog 50/50 15 units x2/day was prescribed hammer adjuster in the past. Patient self discontinued Humalog. DM Maintenance: - Last eye exam: 08/04/21. No retinopathy. - Last foot exam: 11/24/21 - Last microalbumin test: 07/04/21 UACR 3 - Last FLP:07/04/21, TC 188; TG 103; HDL 45; LDL 132. - Last dental exam: [facility] 2019 Immunizations: Up to date for DM Hypertension 05/19/2014 Assessment & Plan (02/05/2025 1:32 PM EDT): Needed a refill of her medication. -prescribed metoprolol 02/05/25 Orders: metoprolol succinate XL (Toprol-XL) 25 MG 24 hr tablet; Take 1 tablet (25 mg) by mouth Once per day. Assessment & Plan (01/10/2025 7:04 AM EDT): - Goal BP < 130 per ACC/AHA. - BP at goal today - Continue working on lifestyle modifications. - Continue lisinopril 2.5 mg daily, initially started for renal protection. - Continue metoprolol succinate 25 mg daily - Treatment Hx: Pt developed dizziness / side effect with lisinopril 5 mg in August 2018, and it was decreased to current dose; pt was prescribed SGLT-2 inhibitor in the past for DM2, but discontinued due to recurrent symptoms. Assessment & Plan (11/04/2024 4:34 PM EDT): - Goal BP < 140/90 per JNC-8; 130/80 per ACC/AHA. - BP slightly elevated - Continue working on lifestyle modifications. - Continue lisinopril 2.5 mg daily, initially started for renal protection. - Continue metoprolol succinate 25 mg daily - Treatment Hx: Pt developed dizziness / side effect with lisinopril 5 mg in August 2018, and it was decreased to current dose; pt was prescribed SGLT-2 inhibitor in the past for DM2, but discontinued due to recurrent symptoms. Assessment & Plan (07/12/2024 7:12 AM EST): - Goal BP < 140/90 per JNC-8; 130/80 per ACC/AHA. - BP slightly elevated - Continue working on lifestyle modifications. - Continue lisinopril 2.5 mg daily, initially started for renal protection. Questionable adherence - Treatment Hx: Pt developed dizziness / side effect with lisinopril 5 mg in August 2018, and it was decreased to current dose; pt was prescribed SGLT-2 inhibitor in the past for DM2, but discontinued due to recurrent symptoms. Assessment & Plan (06/02/2024 3:40 PM EST): Uncontrolled today sec to sinusitis + Nyquil use. DC Nyquil, take above rx for URI. Continue same BP meds and fu with PCP. Assessment & Plan (04/24/2024 12:07 PM EDT): - Goal BP < 140/90 per JNC-8; 130/80 per ACC/AHA. - BP at goal - Continue working on lifestyle modifications. - Continue lisinopril 2.5 mg daily, initially started for renal protection. Questionable adherence - Treatment Hx: Pt developed dizziness / side effect with lisinopril 5 mg in August 2018, and it was decreased to current dose; pt was prescribed SGLT-2 inhibitor in the past for DM2, but discontinued due to recurrent symptoms. - Follow up in 3-6 mo or sooner Assessment & Plan (02/11/2024 3:12 PM EDT): - Goal BP < 140/90 per JNC-8; 130/80 per ACC/AHA. - BP at goal - Continue working on lifestyle modifications. - Continue lisinopril 2.5 mg daily, initially started for renal protection. Questionable adherence - Treatment Hx: Pt developed dizziness / side effect with lisinopril 5 mg in August 2018, and it was decreased to current dose; pt was prescribed SGLT-2 inhibitor in the past for DM2, but discontinued due to recurrent symptoms. - Follow up in 3-6 mo or sooner Assessment & Plan (11/20/2023 10:18 AM EDT): - Goal BP < 140/90 per JNC-8; 130/80 per ACC/AHA. - BP at goal - Continue working on lifestyle modifications. - Continue lisinopril 2.5 mg daily, initially started for renal protection. Questionable adherence - Treatment Hx: Pt developed dizziness / side effect with lisinopril 5 mg in August 2018, and it was decreased to current dose; pt was prescribed SGLT-2 inhibitor in the past for DM2, but discontinued due to recurrent symptoms. - Follow up in 3-6 mo or sooner Assessment & Plan (10/25/2023 12:01 PM EDT): - Goal BP < 140/90 per JNC-8; 130/80 per ACC/AHA. - BP at goal - Continue working on lifestyle modifications. - Continue lisinopril 2.5 mg daily, initially started for renal protection. Questionable adherence - Treatment Hx: Pt developed dizziness / side effect with lisinopril 5 mg in August 2018, and it was decreased to current dose; pt was prescribed SGLT-2 inhibitor in the past for DM2, but discontinued due to recurrent symptoms. - Follow up in 3-6 mo or sooner Assessment & Plan (08/04/2023 6:19 PM EST): - Goal BP < 140/90 per JNC-8; 130/80 per ACC/AHA. - BP at goal - Continue working on lifestyle modifications. - Continue lisinopril 2.5 mg daily, initially started for renal protection. Questionable adherence - Treatment Hx: Pt developed dizziness / side effect with lisinopril 5 mg in August 2018, and it was decreased to current dose; pt was prescribed SGLT-2 inhibitor in the past for DM2, but discontinued due to recurrent symptoms. - Follow up in 3-6 mo or sooner Assessment & Plan (05/23/2023 1:16 PM EST): - Goal BP < 140/90 per JNC-8; 130/80 per ACC/AHA. - BP at goal - Continue working on lifestyle modifications. - Continue lisinopril 2.5 mg daily, initially started for renal protection. Questionable adherence - Treatment Hx: Pt developed dizziness / side effect with lisinopril 5 mg in August 2018, and it was decreased to current dose; pt was prescribed SGLT-2 inhibitor in the past for DM2, but discontinued due to recurrent symptoms. - Follow up in 3-6 mo or sooner Assessment & Plan (04/06/2023 6:55 AM EDT): - Goal BP < 140/90 per JNC-8; 130/80 per ACC/AHA. - BP at goal - Continue working on lifestyle modifications. - Continue lisinopril 2.5 mg daily, initially started for renal protection. Questionable adherence - Treatment Hx: Pt developed dizziness / side effect with lisinopril 5 mg in August 2018, and it was decreased to current dose; pt was prescribed SGLT-2 inhibitor in the past for DM2, but discontinued due to recurrent symptoms. - Follow up in 6 mo or sooner Assessment & Plan (02/05/2023 11:42 AM EDT): - Goal BP < 140/90 per JNC-8; 130/80 per ACC/AHA. - BP at goal - Continue working on lifestyle modifications. - Continue lisinopril 2.5 mg daily, initially started for renal protection. Questionable adherence - Treatment Hx: Pt developed dizziness / side effect with lisinopril 5 mg in August 2018, and it was decreased to current dose; pt was prescribed SGLT-2 inhibitor in the past for DM2, but discontinued due to recurrent symptoms. - Follow up in 6 mo or sooner Assessment & Plan (10/22/2022 6:52 AM EDT): - Goal BP < 140/90 per JNC-8; 130/80 per ACC/AHA. - BP at goal - Continue working on lifestyle modifications. - Continue lisinopril 2.5 mg daily, initially started for renal protection. Questionable adherence - Treatment Hx: Pt developed dizziness / side effect with lisinopril 5 mg in August 2018, and it was decreased to current dose; pt was prescribed SGLT-2 inhibitor in the past for DM2, but discontinued due to recurrent symptoms. - Follow up in 6 mo or sooner Assessment & Plan (08/06/2022 4:12 PM EST): - Goal BP < 140/90 per JNC-8; 130/80 per ACC/AHA. - BP at goal - Continue working on lifestyle modifications. - Continue lisinopril 2.5 mg daily, initially started for renal protection. - Treatment Hx: Pt developed dizziness / side effect with lisinopril 5 mg in August 2018, and it was decreased to current dose Positive FELICITAS (antinuclear antibody) 04/10/2012 Assessment & Plan (08/04/2023 6:31 PM EST): - weakly positive FELICITAS 1:80 in 2018 homogenous pattern. RF was negative. ESR was not elevated. - pt seems to have autoimmune disorder because she has diabetes mellitus and vitiligo - pt has arthralgia and myalgia - referred her to grocery bagger for further evaluation, but patient missed appointment. Assessment & Plan (08/06/2022 4:21 PM EST): - weakly positive FELICITAS 1:80 in 2018 homogenous pattern. RF was negative. ESR was not elevated. 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 Lumbar T-score -2.4, borderline osteoporosis -Continue weigh-bearing exercise. -Intolerance to bisphosphonate. -Continue Calcium and vitamin D supplementation. -Discussed about repeating DEXA; pt declines at this time Assessment & Plan (07/12/2024 7:13 AM EST): -Last DEXA in Jul 2018 Lumber T-score -2.0, osteopenia -DEXA October 2015. Lumbar T-score -2.4, borderline osteoporosis -Continue weigh-bearing exercise. -Intolerance to bisphosphonate. -Continue Calcium and vitamin D supplementation. -Discussed about repeating DEXA; pt declines at this time Assessment & Plan (08/04/2023 6:20 PM EST): -Last DEXA in Jul 2018 Lumber T-score -2.0, osteopenia -DEXA October 2015. Lumbar T-score -2.4, borderline osteoporosis -Continue weigh-bearing exercise. -Intolerance to bisphosphonate. -Continue Calcium and vitamin D supplementation. -Discussed about repeating DEXA; pt declines at this time Assessment & Plan (04/06/2023 6:55 AM EDT): -Last DEXA in Jul 2018 Lumber T-score -2.0, osteopenia -DEXA October 2015. Lumbar T-score -2.4, borderline osteoporosis -Continue weigh-bearing exercise. -Intolerance to bisphosphonate. -Continue Calcium and vitamin D supplementation. -Discussed about repeating DEXA; pt declines at this time Assessment & Plan (02/05/2023 11:41 AM EDT): -Last DEXA in Jul 2018 Lumber T-score -2.0, osteopenia -DEXA October 2015. Lumbar T-score -2.4, borderline osteoporosis -Continue weigh-bearing exercise. -Intolerance to bisphosphonate. -Continue Calcium and vitamin D supplementation. -Discussed about repeating DEXA; pt declines at this time Assessment & Plan (10/22/2022 6:53 AM EDT): -Last DEXA in Jul 2018 Lumber T-score -2.0, osteopenia -DEXA October 2015. Lumbar T-score -2.4, borderline osteoporosis -Continue weigh-bearing exercise. -Intolerance to bisphosphonate. -Continue Calcium and vitamin D supplementation. -Discussed about repeating DEXA; pt declines at this time Assessment & Plan (07/31/2022 4:56 PM EST): -Last DEXA in Jul 2018 Lumber T-score -2.0, osteopenia -DEXA October 2015. Lumbar T-score -2.4, borderline osteoporosis -Continue weigh-bearing exercise. -Intolerance to bisphosphonate. -Continue Calcium and vitamin D supplementation. -Discussed about repeating DEXA; pt declines at this time and will consider after appt with social science analyst Resolved Problems Problem Noted Date Diagnosed Date Resolved Date Pre-op evaluation 11/20/2023 02/11/2024 Assessment & Plan (11/20/2023 10:15 AM EDT): - patient has low risk for surgical complications - patient can proceed to the surgery Palpitations 10/18/2022 04/06/2023 Assessment & Plan (10/18/2022 11:11 AM EDT): - EKG done in clinic today which was normal - will arrange for Holter Monitor - Encouraged to reduce tobacco use and improve glycemic control Tinea versicolor 07/31/2022 08/06/2022 Cough 07/12/2022 07/31/2022 Suspected COVID-19 virus infection 07/12/2022 07/31/2022 Viral disease 07/12/2022 07/31/2022 Viral sinusitis 07/12/2022 07/31/2022 Essential hypertension 07/18/201807/31 Obesity 08/06/2014 08/04/2023 Encounters Date Type Department Care Team Description 02/05/2025 1:00 PM EDT Office Visit [facility] [address] [place] [address] Primary hypertension (Primary Dx); Chronic cough 02/05/2025 Travel 02/04/2025 Telephone [facility] [address] [facility] [place] [address] Madisyn Wolf MD Referral-Cardiology 02/03/2025 Orders Only [facility] [address] [place] [address] Madisyn Wolf MD Cardiomyopathy, unspecified type (CMS/HCC) (Primary Dx) 02/02/2025 Telephone [facility] [address] [facility] [address] Madisyn Wolf MD 01/19/2025 10:30 AM EDT Office Visit [facility] [address] [place], [place] [address] Sheng Hills, DDS Ill-fitting dentures (Primary Dx) 01/14/2025 10:00 AM EDT Office Visit [facility] [address] [place], [place] [address] Sheng Hills, DDS Ill-fitting dentures (Primary Dx); Missing teeth, acquired; Dental plaque; Bone loss 01/12/2025 Telephone [facility] [address] [facility] [place], [place] [address] Madisyn Wolf MD Lung cancer Screening 01/08/2025 Orders Only [facility] [address] [facility] [address] Madisyn Wolf MD Breast cancer screening by mammogram (Primary Dx) 01/06/2025 Telephone [facility] [address] [facility] [address] Madisyn Wolf MD Referral 01/02/2025 Refill [facility] [address] [facility] [address] Nelly Esposito ANP 12/29/2024 1:45 PM EDT Office Visit [facility] [address] [facility] [address] Madisyn Wolf MD Primary hypertension (Primary Dx); Dyslipidemia; Cardiomyopathy, unspecified type (CMS/HCC); Allergic rhinitis, unspecified seasonality, unspecified trigger; Vitamin D deficiency; Osteopenia, unspecified location; Type 2 diabetes mellitus with hyperglycemia, with long-term current use of insulin (CMS/HCC); Vitiligo; Mild persistent asthma without complication; Tobacco dependence; Fibromyalgia; Chronic depression; PTSD (post-traumatic stress disorder); Encounter for immunization 12/29/2024 Travel 12/26/2024 Telephone [facility] [address] [facility] [address] Madisyn Wolf MD chart prep 12/25/2024 Patient Outreach [facility] [address] [facility] [place] [address] Madisyn Wolf MD Care Coordination (W outreach for [facility] housing search-referral completed ) 12/17/2024 Refill [facility] [address] [place] [address] Madisyn Wolf MD 12/17/2024 Patient Outreach [facility] [address] [place] [address] Madisyn Wolf MD Care Coordination ([facility] outreach for [facility] housing search-referral completed ) 12/13/2024 Refill [facility] [address] [place] [address] Madisyn Wolf MD Carpal tunnel syndrome, unspecified laterality 12/10/2024 Refill [facility] [address] [place] [address] Madisyn Wolf MD Mild intermittent asthma without complication 12/10/2024 Refill [facility] [address] [place] [address] Madisyn Wolf MD 12/08/2024 Refill [facility] [address] [place] [address] Madisyn Wolf MD Allergic rhinitis, unspecified seasonality, unspecified trigger 12/05/2024 Telephone [facility] [address] [place] [address] Madisyn Wolf MD fyi ; Paperwork/Forms 11/27/2024 Refill [facility] [address] [place] [address] Therese Joseph RN 11/23/2024 Refill [facility] [address] [place] [address] Madisyn Wolf MD 11/21/2024 Refill [facility] [address] [place] [address] Haydee Hart RN Type 2 diabetes mellitus with hyperglycemia, with long-term current use of insulin ([facility]) 11/20/2024 3:00 PM EDT Office Visit [facility] [address] [place] [address] Sheng Hills DDS Ill-fitting dentures (Primary Dx) 11/20/2024 Refill [facility] [address] [place], [place] [address] Madisyn Wolf MD Type 2 diabetes mellitus with hyperglycemia, with long-term current use of insulin (CMS/HCC) 11/20/2024 Refill [facility] [address] [place], [place] [address] Madisyn Wolf MD Type 2 diabetes mellitus with hyperglycemia, with long-term current use of insulin (CMS/HCC) 11/20/2024 Telephone [facility] [address] [place] [address] Antoinette Harvey, OD 11/19/2024 Telephone [facility] [address] [place] [address] Haydee Cedillo, OD 11/19/2024 Telephone [facility] [address] [place] [address] Sheng Hills DDS 11/13/2024 10:30 AM EDT Office Visit [facility] [address] [place], [place] [address] Sheng Hills DDS Edentulous maxilla (Primary Dx) 11/13/2024 Refill [facility] [address] [place], [place] [address] Narendra Storey, PharmD Tobacco dependence 11/12/2024 Telephone [facility] [address] [place] [address] Madisyn Wolf MD 11/11/2024 Telephone [facility] [address] [place], [place] [address] Bolano case back from lab?? 11/10/2024 1:00 PM EDT Office Visit [facility] [address] [place], [place] [address] Sheng Hills DDS Ill-fitting dentures (Primary Dx) 11/07/2024 Refill [facility] [address] [place], [place] [address] Madisyn Wolf MD 11/06/2024 10:00 AM EDT Telemedicine [facility] [address] [place] [address] Narendra Storey, PharmD Type 2 diabetes mellitus with hyperglycemia, with long-term current use of insulin ([facility]) (Primary Dx); Tobacco dependence 11/06/2024 Travel 11/05/2024 Refill [facility] [address] [place] [address] Madisyn Wolf MD from Last 3 Months Immunizations Immunization Administration Dates Next Due Hep B, adult 12/30/2013,05/28/2013,02/21/2013 Influenza High-dose Quadriva lent Preservative Free 03/21/2022 Influenza injectable quadriv alent IIV4 with preservative 03/29/2017,05/01/2016,07/20/2015 Influenza injectable quadriv alent preservative free 07/04/2018 Influenza, High Dose Seasona l, Preservative Free 05/21/2019 Influenza, IIV3, injectable 05/19/2014,0 03/01/2011,02/21/2010,04/01 Influenza, Split (incl. silvina fied surface antigen) 04/16/2013,04/10/2012 Pneumococcal Conjugate PCV 13 05/21/2019 Pneumococcal Conjugate PCV 20 12/29/2024 Pneumococcal Polysaccharide PPSV23 02/21/2013, TD (adult), 2 Lf tetanus tox oid, preservative free, adsorbed 03/21/2022,08/01/2007 Tdap 08/29/2011 Social History Tobacco Use Types Packs/Day Years Used Date Smoking Tobacco: Some Days Cigarettes Passive Smoke Exposure: Current Smokeless Tobacco: Former Tobacco Cessation:Ready to Q uit: Not Asked; Counseling Given: Not Answered Alcohol Use Standard Drinks/Week Comments Never 0 (1 standard drink = 0.6 oz pur e alcohol) Depression Answer Date Recorded Patient Health Questionnaire-9 Score 4 12/29/2024 Patient Health Questionnaire-9 Score 4 12/29/2024 Last PHQ-9: Questionnaire Data Not on file 0 12/29/2024 Housing Stability Answer Date Recorded What is your housing situation today? I have colby masterson 12/29/[address] you li ve. Do you have problems with any of the following? None of the above 12/29/2024 Food Insecurity Answer Date Recorded Within the past 12 months, y ou worried that your food would run out before you got money to buy more: Never True 12/29/2024 Within the past 12 months,th e food you bought just didn't last and you didn't have enough money to get more: Never True Transportation Answer Date Recorded In the past 12 months, has l ack of transportation kept you from medical appts, meetings, work or from getting things needed for daily living? No 12/29/2024 Utilities Answer Date Recorded In the past 12 months, has t he electric, gas, oil or water company threatened to shut off services in your home? No 12/29/2024 Depression Answer Date Recorded Patient Health Questionnaire-2 Score 2 12/29/2024 Internet Access Answer Date Recorded Internet Access Q1 No 12/29/2024 Internet Access Q2 I do not want or need it 12/02 Comments Unknown Sex and Gender Information Value Date Recorded Sex Assigned at Female 05/01/2022 10:19 AM EDT Legal Sex Female 10:19 AM EDT Gender Identity Female 05/01/2022 10:19 AM EDT Sexual Orientation Straight 05/01/2022 10 :19 AM EDT Last Filed Vital Signs Vital Sign Reading Time Taken Comments Blood Pressure 115/73 02/05/2025 1:09 PM EDT Pulse 92 02/05/2025 1:09 PM EDT Temperature 36.6 C (97.9 F) 02/05/2025 1:09 PM EDT Respiratory Rate 18 02/05/2025 1:09 PM EDT Oxygen Saturation 97% 02/05/2025 1:09 PM EDT Inhaled Oxygen Concentration - - Weight 53.1 kg (117 lb) 02/05/2025 1:09 PM EDT Height 148.3 cm (4' 10.4 ) 06/02/2024 3:03 PM ES T Body Mass Index 24.12 06/02/2024 3:03 PM EST Plan of Treatment Upcoming Encounters Date Type Department Care Team (Late st Contact Info) Description 02/16/2025 3:15 PM EDT Office Visit [facility] [address] [place] [address] Madisyn Wolf MD [address] [place] [address] 05/07/2025 1:00 PM EST Office Visit [facility] [address] [place] [address] Richydenise Antoinette, OD [address] [place] [address] 06/22/2025 10:00 AM EST Office Visit [facility] [address] [place] [address] Kathleen Stephenie Health Maintenance Due Date Last Done Comments CT Colonography 1953 Colonoscopy 1953 Colorectal Cancer Screening 1953 Dental X-Ray: Bitewings 1953 FIT DNA/Cologuard 1953 FIT 1953 FOBT 1953 Sigmoidoscopy 1953 Zoster Vaccines (1 of 2) 10/15/2003 RSV Patients and Patients Aged 60 years or older (1 - Risk 60-74 years 1-dose series) 2013 Mammogram 03/18/2020 03/18/2018 Dental Prophylaxis 02/16/2023 08/18/2022 COVID-19 Vaccine ( season) 2024 04/13/2021 Diabetes: Urine Protein Screening 02/10/2025 02/11/2024, 11/23/2023, 07/04/2021, Additional history exists Lipid Panel 02/10/2025 02/11/2024, 10/31, 08/22/2022, Additional history exists Influenza Vaccine (#1) 2025 , 05/21/2019, 07/04/2018, Additional history exists Diabetes: Hemoglobin A1C 03/31/2025 025, 11/04/2024, 07/07/2024, Additional history exists Diabetes: Foot Exam 07/07/2025 07/07/2024, 07/07/2024, 07/07/2024, Additional history exists Dental Oral Exam 07/18/2025 01/14/2025, , 08/18/2022 Eye Exam 09/12/2025 09/13/2023, 08/30, 09/13/2023, Additional history exists Alcohol/Substance Use Screening 12/29/2025 12/29/2024 Depression Screening 12/29/2025 12/29/2024, 12/30/19 SDOH Screening 12/29/2025 12/29/2024 Tobacco Screening 01/19/2026 01/19/2025 Dental X-Ray: Full Mouth 11/13/2026 11/13/2023 DTaP/Tdap/Td Vaccines (3 - Td or Tdap) 03/21/2032 03/21/2022, 08/29/2011, 08/01/2007 Hepatitis B Vaccines Completed 12/30/2013, 05/28/2013, 02/21/2013 Hepatitis C Screening Completed 02/11/2024, 024 Pneumococcal Vaccine: 50+ Years Completed 12/29/2024, 05/21/2019, 02/21/2013, Additional history exists HIB Vaccines Aged Out No longer eligi ble based on patient's age to complete this topic HPV Vaccines Aged Out No longer eligi ble based on patient's age to complete this topic Hepatitis A Vaccines Aged Out No long er eligible based on patient's age to complete this topic IPV Vaccines Aged Out No longer eligi ble based on patient's age to complete this topic Meningococcal B Vaccine Aged Out No l onger eligible based on patient's age to complete this topic Meningococcal Vaccine Aged Out No carlos nola eligible based on patient's age to complete this topic RSV under 20 months Aged Out No longe r eligible based on patient's age to complete this topic Rotavirus Vaccines Aged Out No longer eligible based on patient's age to complete this topic Procedures Procedure Name Priority Date/Time Associated Diagnosis Comments POCT INFLUENZA A (ID NOW RAPID MOLECULAR) Routine 02/05/2025 1:22 PM EDT Chronic cough POCT INFLUENZA B (ID NOW RAPID MOLECULAR) Routine 02/05/2025 1:21 PM EDT Chronic cough POCT RAPID COVID ANTIGEN Routine 02/05/2025 1:16 PM EDT Chronic cough REPAIR BROKEN COMPLETE DENTURE BASE, MAX Routine 01/19/2025 10:30 AM EDT DENTURE IMPRESSION Routine 01/14/2025 10 :00 AM EDT PERIODIC ORAL EVALUATION - ESTABLISHED PATIENT Routine 01/14/2025 10:00 AM EDT POCT GLYCOSYLATED HEMOGLOBIN (HGB A1C) Routine 12/29/2024 1:54 PM EDT Type 2 diabetes mellitus with hyperglycemia, with long-term current use of insulin (CMS/HCC) POCT GLUCOSE Routine 12/29/2024 1:53 PM EDT Type 2 diabetes mellitus with hyperglycemia, with long-term current use of insulin (CMS/HCC) REPAIR RESIN PARTIAL DENTURE BASE, MAX Routine 11/20/2024 3:00 PM EDT REPAIR BROKEN COMPLETE DENTURE BASE, MAX Routine 11/13/2024 10:30 AM EDT LIMITED ORAL EVALUATION - PROBLEM FOCUSED Routine 11/10/2024 1:00 PM EDT HEPATITIS C AB W/REFL TO HCV RNA, QN, PCR Routine 02/11/2024 1:53 PM EDT Hepatitis C antibody test positive ALBUMIN, RANDOM URINE W/CREATININE Routine 02/11/2024 1:53 PM EDT Type 2 diabetes mellitus with hyperglycemia, with long-term current use of insulin (CMS/HCC) LIPID PANEL WITH REFLEX TO DIRECT LDL Routine 02/11/2024 1:53 PM EDT Type 2 diabetes mellitus with hyperglycemia, with long-term current use of insulin (CMS/HCC) PANORAMIC RADIOGRAPHIC IMAGE Routine 11/13/2023 2:30 PM EDT PROPHYLAXIS - ADULT Routine 08/18/2022 9 :00 AM EST BI MAMMOGRAM SCREENING BILATERAL Routine 03/18/2018 11:24 AM EDT from Last 3 Months or Most Recently Relevant to Health Maintenance Results * Influenza A (ID NOW Rapid Molecular) (02/05/2025 1:22 PM EDT) Influenza A Negative Negative, Indeterminate [facility] Swab 02/05/2025 1:22 PM EDT Aaliyah Watkins MD POINT OF CARE TEST ENTER/E DIT ORDERABLES Final Result Performing Organization Address City/[facility]/ZIP Co de Phone Number [facility] [address] [place] [phone] * Influenza B (ID NOW Rapid Molecular) (02/05/2025 1:21 PM EDT) Pathologist [facility] Influenza B Negative Negative, Indeterminate [facility] Swab 02/05/2025 1:21 PM EDT Result [facility] Aaliyah Watkins MD POINT OF CARE TEST ENTER/E DIT ORDERABLES Final Result Performing Organization Address City/[facility]/ZIP Co de Phone Number [facility] [address] [place] [phone] * POCT Rapid COVID Ag (02/05/2025 1:16 PM EDT) Rapid COVID Ag Negative Swab 02/05/2025 1:16 PM EDT Result [facility] Aaliyah Watkins MD POINT OF CARE TEST ENTER/E DIT ORDERABLES Final Result * (ABNORMAL) POCT glycosylated hemoglobin (Hgb A1c) (12/29/2024 1:54 PM EDT) Pathologist [facility] Hemoglobin A1C 7.3(A) 4.0 - 5.7 % QC Media Lot # [id number] Lot# Expiration Date Blood Capillary blood specimen / Unknown 12/29/2024 1:54 PM EDT Madisyn Wolf MD POINT OF CARE TEST ENTER/EDIT OR DERABLES Final Result * POCT glucose manually resulted (12/29/2024 1:53 PM EDT) Glucose Blood, POC 94 60 - 200 mg/dL QC Media Lot # [id number] Lot# Expiration Date Blood Capillary blood specimen / Unknown 12/29/2024 1:53 PM EDT Madisyn Wolf MD POINT OF CARE TEST ENTER/EDIT OR DERABLES Final Result * (ABNORMAL) Lipid Panel with Reflex to Direct LDL (02/11/2024 1:53 PM EDT) Pathologist [facility] Triglycerides 104 <150 mg/dL [facility] Comment:Desirable Triglyceri de: less than 150 mg/dLBorderline High Triglyceride 150-199 mg/dLHigh Triglyceride: 200-499 mg/dLVery High Triglyceride: greater than or equal to 5OO mg/dL Cholesterol 216(H) <200 mg/dL [facility] Comment:Desirable Cholestero l: less than 200 mg/dLBorderline High Cholesterol: 200-239 mg/dLHigh Cholesterol: greater than 239 mg/dL LDL Cholesterol Calculated 141(H) <100 mg/dL [facility] Comment:Desirable LDL: less than 100 mg/dLNear Optimal/Above Optimal LDL: 110- 129 mg/dLBorderline High LDL: 130-159 mg/dLHigh LDL: 160-189 mg/dLVery High LDL: greater than or equal to 190 mg/dL HDL Cholesterol 55 >40 mg/dL [facility] Comment:Desirable HDL: great er than 40 mg/dL Note: This HDL assay may give artificially low results in patients with liver disease. Blood 02/11/2024 1:53 PM EDT 02/11/2024 4:09 PM EDT Madisyn Wolf MD LAB BLOOD ORDERABLES Final Resul t [facility] [address] [place] [phone] * Albumin, Random Urine W/Creatinine (02/11/2024 1:53 PM EDT) Creatinine, Urine 47.93 mg/dL [facility] Microalbumin Urine <5.0 mg/L [facility] Microalbum Creatinine Ratio Ur TNP <30 ug/mg cr [facility] Comment:Unable to calculate albumin/creatinine ratio due to lowmicroalbumin or creatinine result. Urine 02/11/2024 1:53 PM EDT 02/11/2024 4:01 PM EDT Madisyn Wolf MD LAB URINE ORDERABLES Final Resul t Performing Organization Address [facility] Co de Phone Number [facility] [address] [place] [phone] * Hepatitis C Antibody with Reflex to HCV, RNA, Quantitative, Real-Time PCR (02/11/2024 1:53 PM EDT) Hepatitis C Antibody Nonreactive Nonreactive [facility] Comment:Antibodies to HCV no t detected; does not exclude early acuteHCV infection. Blood Venous blood specimen / Unknown 02/11/2024 1:53 PM EDT 02/11/2024 4:09 PM EDT Madisyn Wolf MD LAB BLOOD ORDERABLES Final Resul t Performing Organization Address [facility] Co de Phone Number [facility] [address] [place] [phone] * DIGITAL BILATERAL SCREEN 1 (03/18/2018 11:24 AM EDT) Anatomical Region Laterality Modality Breast Bilateral Mammography 03/18/2018 11:2 4 AM EDT Narrative 03/18/2018 11:27 AM EDT Refer to the Notes tab for result details [facility] Procedure: DIGITAL BILATERAL SCREEN 1 Procedure Note ProviderJeff MD - 09/23/2022 Refer to the Notes tab for result details [facility] Procedure: DIGITAL BILATERAL SCREEN 1 Madisyn Wolf MD IMG BI PROCEDURES Final Result from Last 3 Months or Most Recently Relevant to Health Maintenance Insurance [facility] MEDICARE ADVANTAGE HMO DENTAL - HSN FULL (MEDICAID) DENTAL [facility] PPO Care Teams Electromechanical Equipment As[employer]er Relationship Specialty Start Date End Date Madisyn Wolf MD [address] [place] [address] PCP - General Family Medicine 07/02/18 Narendra Storey, PharmD [address] [place] [phone] Pharmacist Internal Medicine 09/09/24
== END 2025-02-05 13:44 | disposition home or self-care (01) ==
LOC: HO.HHCX 13:43
PROVIDERS: Visit Provider Family Medicine
DX: R05.3 Chronic cough (principal)
CPT/HCPCS: 71046

== ENCOUNTER → 2025-02-05 13:43 | Outpatient (BNV) | payer MEDICARE, SELFPAY | PROVIDERS: Visit Provider Radiology Diagnostic Radiology | DX: J84.9 Interstitial pulmonary disease, unspecified (principal) | CPT/HCPCS: 71046 ==

== ENCOUNTER 2025-02-23 09:33 | Outpatient (REF) | payer MEDICARE, SELFPAY ==
--- OUTSIDE RECORDS SUMMARY | 2025-02-23 10:24 | XMS_ITS | Clinical Summary ---
Author Organization [employer] Address [address] [facility] [address] [place] [address] Care Team Providers Care Video And Sound Recorder Name Role Phone Madisyn Wolf MD Primary Care Provider [phone] Narendra Storey PharmD Unavailable [phone] Allergies Active Allergy Reactions Criticality Noted Date [...] DAYS BEFORE SURGERY Active Pentips Generic [place] 32G X 4 MM miscIndications :Type 2 diabetes mellitus with hyperglycemia, with long-term current use of insulin ([facility]) USE DIRECTED EVERY DAY WITH lantus solostar 100 each 3 Active triamcinolone (Kenalog) 0.1 % cream Apply to affected area once daily. 30 g 3 025 Active Continuous Glucose Barrel Polisher (FreeStyle Ron 3 [place]) device 1 each Once per day. Use [...] hyperglycemia, with long-term current use of insulin ([facility]) INJECT 16 UNITS SUBCUTANEOUSLY EVERY DAY Active [...] hyperglycemia, with long-term current use of insulin ([facility]) TEST BLOOD SUGAR FOUR TIMES DAILY 100 each 025 Active glucose blood (FREESTYLE LITE) test stripIndication s:Type 2 diabetes mellitus with hyperglycemia, with long-term current use of insulin ([facility]) Use bid. Dx diabetes 60 each 025 Active lisinopril 2.5 MG tablet TAKE 1 TABLET BY MOUTH EVERY DAY 90 tablet 3 025 Active acetaminophen (Tylenol 8 Hour) 650 MG ER tablet TAKE 1 TABLET BY MOUTH THREE TIMES DAILY IN THE MORNING, AT NOON, AND AT BEDTIME NEEDED FOR MILD OR MODERATE PAIN 60 tablet 025 Active cetirizine (ZyrTEC) 10 MG tablet TAKE 1 TABLET BY MOUTH EVERY DAY 90 tablet 025 Active albuterol (Ventolin HFA) 108 (90 Base) [...] APART RINSE MOUTH AFTER USING. 60 each 025 Active hydrOXYzine pamoate (Vistaril) 25 MG capsule TAKE 1 CAPSULE BY MOUTH EVERY 8 HOURS NEEDED FOR ITCHING 90 capsule 1 025 Active metoprolol succinate XL (Toprol-XL) 25 MG 24 hr tabletIndicatio ns:Primary hypertension Take 1 tablet (25 mg) by mouth Once per day. 30 tablet 1 025 Active Accu-Chek Guide Test test stripIndication s:Type 2 diabetes mellitus with hyperglycemia, with long-term current use of insulin ([facility]) USE DIRECTED TO TEST BLOOD SUGAR THREE TIMES DAILY DIRECTED 100 each 025 Active Accu-Chek Softclix Lancets lancetsIndicati ons:Type 2 diabetes mellitus with hyperglycemia, with long-term current use of insulin ([facility]) USE DIRECTED TO TEST BLOOD SUGAR THREE TIMES DAILY 100 each 11 Active Blood Glucose Monitoring Suppl (Accu-Chek Guide Me) w/Device kitIndications: Type 2 diabetes mellitus with hyperglycemia, with long-term current use of insulin ([facility]) USE DIRECTED TO TEST BLOOD SUGAR THREE TIMES DAILY 1 kit Active benzonatate (Tessalon Perles) 100 MG capsuleIndicati ons:Chronic cough Take 1 capsule (100 mg) by mouth if needed in the morning, at noon, and at bedtime for cough. Do not crush or chew. 30 capsule 1 Active metoprolol succinate XL (Toprol-XL) 25 MG 24 hr tablet Take 1 tablet by mouth Once per day. 2024 Discontinued(R eorder (will not trigger notification to Pharmacy)) OneTouch UltraSoft 2 Lancets misc 1 each 3 times daily. Use to check blood sugar 3 times daily 100 each 11 2024 Discontinued glucose blood test strip Use to check blood sugar 3 times daily 100 each 12 025 2024 Discontinued Blood Glucose Monitoring Suppl (ONE TOUCH ULTRA 2) w/Device kit USE TO TEST BLOOD SUGAR THREE TIMES DAILY DIRECTED 1 kit 2024 Discontinued benzonatate (Tessalon Perles) 100 MG capsuleIndicati ons:Chronic cough Take 1 capsule (100 mg) by mouth if needed in the morning, at noon, and at bedtime for cough for up to 7 days. Do not crush or chew. 20 capsule 2024 Discontinued(R eorder (will not trigger notification to Pharmacy)) azithromycin (Zithromax) 250 MG tabletIndicatio ns:Chronic cough Take 2 tablets (500 mg) by mouth Once per day for 1 day, THEN 1 tablet (250 mg) Once per day for 4 days. 6 tablet 2024 Discontinued(T herapy completed) carbamide peroxide (Debrox) 6.5 % otic solution Administer 5-10 drops into affected ear(s) 2 times daily for 4 days. 30 mL 2024 Active Problems Problem Noted Date Diagnosed Date Cardiomyopathy 11/04/2024 Assessment & Plan (02/21/2025 6:19 AM EDT): - Hospitalized in September 2024 - Cardiac cath did not reveal any significant CAD - Echo showed ejection fraction is 35-40% - Differential Dx: stress-induced; autoimmune; amyloidosis; - Pt declined MRI due to claustrophobia; ordered open MRI, still waiting for appt - Referred to cardiology and cardiac rehab, upcoming appointment Assessment & Plan (01/10/2025 7:06 AM EDT): [...] uncertain behavior of major salivary gland 02/28/2024 Assessment & Plan (02/21/2025 6:28 AM EDT): - evaluated by ENT - given reassurance Cataract 11/20/2023 Assessment & Plan (04/27/2024 6:02 [...] again Allergic rhinitis 04/05/2023 Assessment & Plan (02/21/2025 6:20 AM EDT): - continue montelukast - continue cetirizine Assessment & Plan (12/29/2024 10:57 AM EDT): - continue montelukast - continue cetirizine Assessment & Plan (02/11/2024 3:16 PM EDT): - continue montelukast - continue cetirizine Assessment & Plan (04/05/2023 11:52 AM EDT): - continue montelukast - switch from cetirizine to loratadine Mass of left side of neck 04/05/2023 Assessment & Plan (02/21/2025 6:28 AM EDT): - 05/14/23 CT scan report is inconclusive - Patient was seen by ENT on 02/28/24. Patient had laryngoscopy and reportedly had MRI. Patient was informed that evaluation was reassuring for no malignancy. Patient was encouraged to continue working on smoking cessation. Assessment & Plan (04/24/2024 [...] positive FELICITAS, she was referred back to environmental services specialist for evaluation of autoimmune disorder. She did [...] medication at this time. - Consulted with Beauty Counselor who recommended UV-B - We will continue [...] positive FELICITAS, she was referred back to environmental services specialist for evaluation of autoimmune disorder. She did [...] medication at this time. - Consulted with Beauty Counselor who recommended UV-B - We will continue [...] positive FELICITAS, she was referred back to environmental services specialist for evaluation of autoimmune disorder. She did [...] medication at this time. - Consulted with Beauty Counselor who recommended UV-B - We will continue [...] positive FELICITAS, she was referred back to environmental services specialist for evaluation of autoimmune disorder. She did [...] medication at this time. - Consulted with Beauty Counselor who recommended UV-B - We will continue [...] positive FELICITAS, she was referred back to environmental services specialist for evaluation of autoimmune disorder. She did [...] medication at this time. - Consulted with Beauty Counselor who recommended UV-B - We will continue [...] positive FELICITAS, she was referred back to environmental services specialist for evaluation of autoimmune disorder. She did [...] medication at this time. - Consulted with Beauty Counselor who recommended UV-B - We will continue [...] positive FELICITAS, she was referred back to environmental services specialist for evaluation of autoimmune disorder. She did [...] positive FELICITAS, she was referred back to environmental services specialist for evaluation of autoimmune disorder. She did [...] positive FELICITAS, she was referred back to environmental services specialist for evaluation of autoimmune disorder. She did [...] positive FELICITAS, she was referred back to environmental services specialist for evaluation of autoimmune disorder. Assessment & [...] positive FELICITAS, I will refer back to environmental services specialist for evaluation of autoimmune disorder. PTSD (post-traumatic stress disorder) 07/31/2022 Tobacco dependence 07/31/2022 Assessment & Plan (02/19/2025 11:21 PM EDT): Pt started smoking again after [...] revisit at next visit Assessment & Plan (12/29/2024 11:00 AM EDT): [...] - if no improvement, will refer to framing machine tender and/or consider trial of cryotherapy Tendinitis of right rotator cuff 11/13/2018 Assessment & Plan (08/06/2022 4:15 PM EST): - MRI in 2018 showed rotator cuff tear - Previously [place] [facility] and received steroid injection - Surgical [...] -will recheck Asthma 03/29/2017 Assessment & Plan (02/19/2025 11:21 PM EDT): -Continue Advair or Wixela as maintenance -Cont Albuterol prn -Continue montelukast -Continue working on smoking cessation. Assessment & Plan (12/29/2024 10:59 AM EDT): [...] smoking cessation. Dyslipidemia 10/28/2015 Assessment & Plan (02/21/2025 6:18 AM EDT): - Last Lipid Profile: 02/11/24 Total cholesterol 216; LDL 141; Triglyceride 104; HDL 55, reminded about lab order - Recommended high-intensity statin per guideline - Current medication atorvastatin 80 mg qhs, started since hospitalization for cardiomyopathy in September [...] Work on lifestyle modifications Assessment & Plan (01/10/2025 7:06 AM EDT): [...] Assessment & Plan (12/29/2024 10:59 AM EDT): -[facility] provider: Dr. Oziel KLINE. -Previously referred to environmental services specialist for positive FELICITAS and arthralgia / myalgia, but she did not keep appt -Continue current medications: duloexetine Assessment & Plan (04/24/2024 12:08 PM EDT): -[facility] provider: Dr. Oziel KLINE. -Previously referred to environmental services specialist for positive FELICITAS and arthralgia / myalgia, but she did not keep appt -Continue current medications: duloexetine Assessment & Plan (10/25/2023 1:47 PM EDT): -[facility] provider: Dr. Oziel KLINE. -Previously referred to environmental services specialist for positive FELICITAS and arthralgia / myalgia, but she did not keep appt -Continue current medications: duloexetine Assessment & Plan (04/06/2023 6:56 AM EDT): -[facility] provider: Dr. Oziel KLINE. -Previously referred to environmental services specialist for positive FELICITAS and arthralgia / myalgia, but she did not keep appt -Continue current medications: duloexetine Assessment & Plan (02/05/2023 11:42 AM EDT): -[facility] provider: Dr. Oziel KLINE. -Previously referred to environmental services specialist for positive FELICITAS and arthralgia / myalgia, but she did not keep appt -Continue current medications: Cymbalta Assessment & Plan (10/22/2022 6:53 AM EDT): -[facility] provider: Dr. Oziel KLINE. -Previously referred to environmental services specialist for positive FELICITAS and arthralgia / myalgia, but she did not keep appt -Continue current medications: Cymbalta Assessment & Plan (08/06/2022 4:17 PM EST): -[facility] provider: Dr. Oziel KLINE. -Previously referred to environmental services specialist for positive FELICITAS and arthralgia / myalgia, but she did not keep appt -Continue current medications: Cymbalta Carpal tunnel syndrome 07/20/2015 Assessment & Plan (07/07/2024 12:17 PM EST): - Pt reports neuropathy, most likely tied to her carpal tunnel - last NCT/EMG in 2018 - previously [place] [facility] - Recommended to wear wrist brace - possible cervical radiculopathy Assessment & Plan (02/11/2024 3:08 PM EDT): - bilateral - last NCT/EMG in 2018 - previously followed [place] [facility] - wear wrist brace - possible cervical radiculopathy Assessment & Plan (08/06/2022 4:14 PM EST): - bilateral - last NCT/EMG in 2018 - previously followed [place] [facility] Chronic depression 07/20/2015 Assessment & Plan (02/21/2025 6:22 AM EDT): [facility] provider: Dr. Oziel KLINE. -Continue current medications: duloxetine; buspirone -Grieving from her who of COVID19 in 2020 Assessment & Plan (12/29/2024 10:58 AM EDT): [facility] provider: Dr. Oziel KLINE. -Continue current medications: duloxetine; buspirone -Grieving from her who of COVID19 in 2020 Assessment & Plan (11/04/2024 4:05 PM EDT): [facility] provider: Dr. Oziel KLINE. -Continue current medications: duloxetine; buspirone -Grieving from her who of COVID19 in 2020 Assessment & Plan (07/12/2024 7:19 AM EST): [facility] provider: Dr. Oziel LKINE. -Continue current medications: duloxetine; buspirone -Grieving from her who of COVID19 in 2020 Assessment & Plan (04/24/2024 2:41 PM EDT): [facility] provider: Dr. Oziel KLINE. -Continue current medications: duloexetine -Grieving from her who of COVID19 in 2020 Assessment & Plan (02/11/2024 3:16 PM EDT): [facility] provider: Dr. Oziel KLINE. -Continue current medications: duloexetine -Grieving from her who of COVID19 in 2020 Assessment & Plan (08/04/2023 6:31 PM EST): [facility] provider: Dr. Oziel KLINE. -Continue current medications: duloexetine -Grieving from her who of COVID19 in 2020 Assessment & Plan (05/23/2023 10:15 AM EST): [facility] provider: Dr. Oziel KLINE. -Continue current medications: duloexetine -Grieving from her who of COVID19 in 2020 Assessment & Plan (04/06/2023 7:09 AM EDT): [facility] provider: Dr. Oziel KLINE. -Continue current medications: duloexetine -Grieving from her who of COVID19 in 2020 Assessment & Plan (10/18/2022 10:27 AM EDT): [facility] provider: Dr. Oziel KLINE. -Continue current medications: Cymbalta Assessment & Plan (07/31/2022 4:55 PM EST): [facility] provider: Dr. Oziel KLINE. -Continue current medications: [...] mellitus, type 2 05/19/2014 Assessment & Plan (02/21/2025 6:21 AM EDT): -A1C 7.3% on 12/29/24, improved from 7.7% on 11/04/24 -[place] [facility] -Encouraged to continue working on lifestyle modifications and SMBG. -Poor medication adherence, has not had medication for last 3 months -Continue basal insulin, Lantus, 14 units every 24 hours Treatment Hx: -Previously on Trulicity 1.5 mg weekly, patient has self-discontinued and restarted in Jul 2022, again pt requested it to be discontinued due to weight loss, then restarted again, then discontinued again because patient wanted to gain weight -Jardiance was discontinued due to recurrent vaginal candidiasis -Metformin regular and ER were discontinued due to GI side effect - Humalog 50/50 15 units x2/day was prescribed dock loader in the past. Patient self discontinued Humalog. DM Maintenance: - Last eye exam: 03/12/24. No retinopathy. - Last foot exam: 11/04/24 - Last microalbumin test: 02/11/24 no microalbuminuria - Last Lipid Profile: 02/11/24 Total cholesterol 216; LDL 141; Triglyceride 104; HDL 55 - Last dental exam: [facility] Assessment & Plan (12/31/2024 10:55 PM EDT): -A1C 7.3% on 12/29/24, improved from 7.7% on 11/04/24 -Previously [place] [facility] -Encouraged to continue working on lifestyle [...] Humalog 50/50 15 units x2/day was prescribed dock loader in the past. Patient self discontinued Humalog. DM Maintenance: - Last eye exam: 03/12/24. No retinopathy. - Last foot exam: 11/04/24 - Last microalbumin test: 02/11/24 no microalbuminuria - Last Lipid Profile: 02/11/24 Total cholesterol 216; LDL 141; Triglyceride 104; HDL 55 - Last dental exam: [facility] Assessment & Plan (11/04/2024 4:35 PM EDT): -A1C 7.7% on 11/04/24, improved from 8.9% on 07/07/24 -Previously [place] [facility] -Encouraged to continue working on lifestyle [...] Humalog 50/50 15 units x2/day was prescribed dock loader in the past. Patient self discontinued Humalog. DM Maintenance: - Last eye exam: 03/12/24. No retinopathy. - Last foot exam: 11/04/24 - Last microalbumin test: 02/11/24 no microalbuminuria - Last lipid profile: 02/11/24 - Last dental exam: [facility] Assessment & Plan (07/12/2024 7:15 AM EST): -A1C 8.9% on 07/07/24 -Previously [place] [facility] -Encouraged to continue working on lifestyle [...] Humalog 50/50 15 units x2/day was prescribed dock loader in the past. Patient self discontinued Humalog. DM Maintenance: - Last eye exam: 03/12/24. No retinopathy. - Last foot exam: 07/07/24 - Last microalbumin test: 02/11/24 no microalbuminuria - Last lipid profile: 02/11/24 - Last dental exam: [facility] Assessment & Plan (04/24/2024 12:15 PM EDT): -A1C 10.2% on 04/24/24 -Previously followed [place] [facility] -Encouraged to continue working on lifestyle [...] Humalog 50/50 15 units x2/day was prescribed dock loader in the past. Patient self discontinued Humalog. DM Maintenance: - Last eye exam: 03/12/24. No retinopathy. - Last foot exam: 04/24/24 - Last microalbumin test: 02/11/24 no microalbuminuria - Last lipid profile: 02/11/24 - Last dental exam: [facility] 2019 Assessment & Plan (02/11/2024 3:14 PM EDT): -A1C 7.1% on 11/20/23 -Previously followed [place] [facility] -Encouraged to continue working on lifestyle [...] Humalog 50/50 15 units x2/day was prescribed dock loader in the past. Patient self discontinued Humalog. DM Maintenance: - Last eye exam: 09/12/23. No retinopathy. - Last foot exam: 01/30/23 - Last microalbumin test: 11/23/23 no microalbuminuria - Last lipid profile: 11/23/23 - Last dental exam: [facility] 2019 Assessment & Plan (11/20/2023 10:14 AM EDT): -A1C 7.1% on 11/20/23 -Previously [place] [facility] -Encouraged to continue working on lifestyle [...] Humalog 50/50 15 units x2/day was prescribed dock loader in the past. Patient self discontinued Humalog. DM Maintenance: - Last eye exam: 09/12/23. No retinopathy. - Last foot exam: 01/30/23 - Last microalbumin test: 07/04/21 UACR 3 - Last FLP: 08/22/22 TC 217; TG 138 ; HDL 66 ; LDL 125 - Last dental exam: [facility] 2019 - Follow up in 3 mo or sooner Assessment & Plan (10/25/2023 12:49 PM EDT): -A1C 7.2% on 10/25/23 -Previously followed [place] [facility] -Encouraged to continue working on lifestyle [...] Humalog 50/50 15 units x2/day was prescribed dock loader in the past. Patient self discontinued Humalog. DM Maintenance: - Last eye exam: 09/12/23. No retinopathy. - Last foot exam: 01/30/23 - Last microalbumin test: 07/04/21 UACR 3 - Last FLP: 08/22/22 TC 217; TG 138 ; HDL 66 ; LDL 125 - Last dental exam: [facility] 2019 - Follow up in 3 mo or sooner Assessment & Plan (08/04/2023 6:23 PM EST): -A1C 7.4% on 07/30/23, improving. 8.5% on 04/05/23, improved from 9.3% on 01/30/23. -Previously [place] [facility] -Encouraged to continue working on lifestyle [...] Humalog 50/50 15 units x2/day was prescribed dock loader in the past. Patient self discontinued Humalog. DM Maintenance: - Last eye exam: 08/04/21. No retinopathy. - Last foot exam: 01/30/23 - Last microalbumin test: 07/04/21 UACR 3 - Last FLP: 08/22/22 TC 217; TG 138 ; HDL 66 ; LDL 125 - Last dental exam: [facility] 2019 - Follow up in 3 mo or sooner Assessment & Plan (05/23/2023 10:12 AM EST): -A1C 8.5% on 04/05/23, improved from 9.3% on 01/30/23, possibly due to poor PO intake -Previously [place] [facility] -Encouraged to continue working on lifestyle [...] Humalog 50/50 15 units x2/day was prescribed dock loader in the past. Patient self discontinued Humalog. DM Maintenance: - Last eye exam: 08/04/21. No retinopathy. - Last foot exam: 01/30/23 - Last microalbumin test: 07/04/21 UACR 3 - Last FLP: 08/22/22 TC 217; TG 138 ; HDL 66 ; LDL 125 - Last dental exam: [facility] 2019 - Follow up in 3 mo or sooner Assessment & Plan (04/06/2023 6:59 AM EDT): -A1C 8.5% on 04/05/23, improved from 9.3% on 01/30/23, possibly due to poor PO intake -Previously followed [place] [facility] -Encouraged to continue working on lifestyle [...] Humalog 50/50 15 units x2/day was prescribed dock loader in the past. Patient self discontinued Humalog. DM Maintenance: - Last eye exam: 08/04/21. No retinopathy. - Last foot exam: 01/30/23 - Last microalbumin test: 07/04/21 UACR 3 - Last FLP: 08/22/22 TC 217; TG 138 ; HDL 66 ; LDL 125 - Last dental exam: [facility] 2019 - Follow up in 3 mo or sooner Assessment & Plan (02/05/2023 11:41 AM EDT): -A1c 9.3% on 01/30/23, trending upwards. 8.1% on 10/18/22 Personal best 6.2% on 07/04/21. -Previously followed [place] [facility] -Encouraged to continue working on lifestyle [...] Humalog 50/50 15 units x2/day was prescribed dock loader in the past. Patient self discontinued Humalog. DM Maintenance: - Last eye exam: 08/04/21. No retinopathy. - Last foot exam: 01/30/23 - Last microalbumin test: 07/04/21 UACR 3 - Last FLP: 08/22/22 TC 217; TG 138 ; HDL 66 ; LDL 125 - Last dental exam: [facility] 2019 - Follow up in 3 mo or sooner Assessment & Plan (10/22/2022 6:55 AM EDT): -A1c 8.1% on 10/18/22, worsening from 6.9% on 02/27/22. Personal best 6.2% on 07/04/21. -Previously followed [place] [facility] -Encouraged to continue working on lifestyle modifications and SMBG. - Increase Lantus to 20 units qhs - Continue Trulicity Treatment Hx: -Previously on Trulicity 1.5 mg weekly, patient has self-discontinued and restarted in Jul 2022 -Jardiance was discontinued due to recurrent vaginal candidiasis -Metformin regular and ER were discontinued due to GI side effect - Humalog 50/50 15 units x2/day was prescribed dock loader in the past. Patient self discontinued Humalog. DM Maintenance: - Last eye exam: 08/04/21. No retinopathy. - Last foot exam: 11/24/21 - Last microalbumin test: 07/04/21 UACR 3 - Last FLP: 08/22/22 TC 217; TG 138 ; HDL 66 ; LDL 125 - Last dental exam: [facility] 2019 - Follow up in 3 mo or sooner Assessment & Plan (07/31/2022 4:52 PM EST): -A1c 6.9% today 02/27/22. Stable. Personal best 6.2% on 07/04/21. -A1C 12.7% on 10/29/20. -Previously followed [place] [facility] -Encouraged to continue working on lifestyle modifications and SMBG. - Continue Lantus 25 units qhs - Continue Trulicity 1.5 mg weekly Treatment Hx: -Jardiance was discontinued due to recurrent vaginal candidiasis -Metformin regular and ER were discontinued due to GI side effect - Humalog 50/50 15 units x2/day was prescribed dock loader in the past. Patient self discontinued Humalog. DM Maintenance: - Last eye exam: 08/04/21. No retinopathy. - Last foot exam: 11/24/21 - Last microalbumin test: 07/04/21 UACR 3 - Last FLP:07/04/21, TC 188; TG 103; HDL 45; LDL 132. - Last dental exam: [facility] 2019 Immunizations: Up to date for DM Hypertension 05/19/2014 Assessment & Plan (02/21/2025 6:18 AM EDT): - Goal BP < 130/80 per ACC/AHA. - BP at goal today [...] due to recurrent symptoms. Assessment & Plan (02/05/2025 3:23 PM EDT): Needed a refill of her [...] arthralgia and myalgia - referred her to environmental services specialist for further evaluation, but patient missed appointment. Assessment & Plan (08/06/2022 4:21 PM EST): - weakly positive FELICITAS 1:80 in 2018 homogenous pattern. RF was negative. ESR was not elevated. - pt seems to have autoimmune disorder because vitiligo is autoimmune process - pt has arthralgia and myalgia - will refer her to environmental services specialist for further evaluation Osteopenia 01/30/2012 Assessment & [...] time and will consider after appt with manager managed backup services Resolved Problems Problem Noted Date Diagnosed Date [...] Encounters Date Type Department Care Team Description 02/16/2025 3:15 PM EDT Office Visit [facility] [address] [place] [address] Madisyn Wolf MD Primary hypertension (Primary Dx); Cardiomyopathy, unspecified type (CMS/HCC); Type 2 diabetes mellitus with hyperglycemia, with long-term current use of insulin (CMS/HCC); Tobacco dependence; Mild persistent asthma without complication; Chronic cough; Dyslipidemia; Allergic rhinitis, unspecified seasonality, unspecified trigger; Chronic depression; Bilateral impacted cerumen 02/16/2025 Travel 02/16/2025 Patient Outreach [facility] [address] [place] [address] Madisyn Wolf MD 02/13/2025 Telephone [facility] [address] [place] [address] Madisyn Wolf MD chart prep 02/13/2025 Travel 02/11/2025 Refill [facility] [address] [place] [address] Madisyn Wolf MD Type 2 diabetes mellitus with hyperglycemia, with long-term current use of insulin ([facility]) 02/05/2025 1:00 PM EDT Office Visit [facility] [address] [place] [address] Aaliyah Watkins MD Primary hypertension (Primary Dx); Chronic cough 02/05/2025 Results Follow-Up [facility] [place] [address] Aaliyah Watkins MD XR Chest 2 Views 02/05/2025 Travel 02/04/2025 Telephone [facility] [address] [facility] [place] [address] Madisyn Wolf MD Referral-Cardiology 02/03/2025 Orders Only [facility] [address] [facility] [place] [address] Madisyn Wolf MD Cardiomyopathy, unspecified type ([facility]) (Primary Dx) 02/02/2025 [address] [place] [address] Madisyn Wolf MD 01/19/2025 10:30 AM EDT Office Visit [facility] [address] [facility] [place] [address] [place] DDS Ill-fitting dentures (Primary Dx) 01/14/2025 10:00 AM EDT Office Visit [facility] [address] [facility] [place] [address] [place] DDS Ill-fitting dentures (Primary Dx); Missing teeth, acquired; Dental plaque; Bone loss 01/12/2025 Telephone [facility] [address] [facility] [place] [address] Madisyn Wolf MD Lung cancer Screening 01/08/2025 Orders Only [facility] [address] [facility] [place] [address] Madisyn Wolf MD Breast cancer screening by mammogram (Primary Dx) 01/06/2025 Telephone [facility] [address] [facility] [place] [address] Madisyn Wolf MD Referral 01/02/2025 Refill [facility] [address] [facility] [place] [address] Nelly Esposito ANP 12/29/2024 1:45 PM EDT Office Visit [facility] [address] [place] [address] Madisyn Wolf MD Primary hypertension (Primary Dx); Dyslipidemia; Cardiomyopathy, unspecified type (CMS/HCC); Allergic rhinitis, unspecified seasonality, unspecified trigger; Vitamin D deficiency; Osteopenia, unspecified location; Type 2 diabetes mellitus with hyperglycemia, with long-term current use of insulin (CMS/HCC); Vitiligo; Mild persistent asthma without complication; Tobacco dependence; Fibromyalgia; Chronic depression; PTSD (post-traumatic stress disorder); Encounter for immunization 12/29/2024 Travel 12/26/[address] [address] Madisyn Wolf MD chart prep 12/25/2024 Patient Outreach [address] [address] Madisyn Wolf MD Care Coordination ([facility] outreach for [facility] housing search-referral completed ) 12/17/2024 Refill [facility] [address] [place] [address] Madisyn Wolf MD 12/17/2024 Patient Outreach [address] [address] Madisyn Wolf MD Care Coordination ([facility] outreach for [facility] housing search-referral completed ) 12/13/2024 Refill [facility] [address] [place] [address] Madisyn Wolf MD Carpal tunnel syndrome, unspecified laterality 12/10/2024 Refill [facility] [address] [place] [address] Madisyn Wolf MD Mild intermittent asthma without complication 12/10/2024 Refill [facility] [address] [place] [address] Madisyn Wolf MD 12/08/2024 Refill [facility] [address] [place] [address] Madisyn Wolf MD Allergic rhinitis, unspecified seasonality, unspecified trigger 12/05/2024 Telephone [facility] [address] [facility] [place] [address] Madisyn Wolf MD fyi ; Paperwork/Forms 11/27/2024 Refill [facility] [address] [facility] [address] Therese Joseph RN 11/23/2024 Refill [facility] [address] [place] [address] Madisyn Wolf MD from Last 3 Months [...] Sign Reading Time Taken Comments Blood Pressure 130/70 02/16/2025 3:15 PM EDT Pulse 97 02/16/2025 3:15 PM EDT Temperature 35.9 C (96.7 F) 02/16/2025 3:15 PM EDT Respiratory Rate 18 02/16/2025 3:15 PM EDT Oxygen Saturation 99% 02/16/2025 3:15 PM EDT Inhaled Oxygen Concentration - - Weight 53.3 kg (117 lb 6.4 oz) 02/16/2025 3:15 PM EDT Height 147.3 cm (4' 10 ) 02/16/2025 3:15 PM EDT Body Mass Index 24.54 02/16/2025 3:15 PM EDT Plan of Treatment Upcoming Encounters Date Type Department Care Team (Late st Contact Info) Description 02/24/2025 11:00 AM EDT Clinical Support [facility] [address] [place] [address] 05/07/2025 1:00 PM EST Office Visit [facility] OPTOMETRY [address] [place] [address] Antoinette Harvey, OD [address] [place] [address] 06/22/2025 10:00 AM EST Office Visit [facility] ADULT DENTAL [address] [place] [address] Stephenie Kathleen Health Maintenance Due Date Last Done Comments [...] 12/30/19 SDOH Screening 12/29/2025 12/29/2024 Tobacco Screening 02/21/2026 02/21/2025 Dental X-Ray: Full Mouth 11/13/2026 11/13/2023 DTaP/Tdap/Td [...] Routine 02/05/2025 1:16 PM EDT Chronic cough XR CHEST 2 VIEWS Routine 02/05/2025 1:05 PM EDT Chronic cough REPAIR BROKEN COMPLETE [...] with long-term current use of insulin (CMS/HCC) HEPATITIS C AB W/REFL TO HCV RNA, [...] PM EDT) Influenza A Negative Negative, Indeterminate [facility] Swab 02/05/2025 1:22 PM EDT Aaliyah Watkins MD POINT OF CARE TEST ENTER/E DIT ORDERABLES Final Result Performing Organization Address City/[facility]/ZIP Co de Phone Number [facility] [address] [place] [address] [phone] * Influenza B (ID NOW Rapid Molecular) (02/05/2025 1:21 PM EDT) Influenza B Negative Negative, Indeterminate [facility] Swab 02/05/2025 1:21 PM EDT Aaliyah Watkins MD POINT OF CARE TEST ENTER/E DIT ORDERABLES Final Result Performing Organization Address [facility] Co de Phone Number [facility] [address] [place] [address] [phone] * POCT Rapid COVID Ag (02/05/2025 1:16 PM EDT) Rapid COVID Ag Negative Swab 02/05/2025 1:16 PM EDT Aaliyah Watkins MD POINT OF CARE TEST ENTER/E DIT ORDERABLES Final Result * XR Chest 2 Views (02/05/2025 1:05 PM EDT) Anatomical Region Laterality Modality Chest Radiographic Claudia ging 02/05/2025 1:05 PM EDT Narrative 02/05/2025 2:24 PM EDT [address] [address] XRay Report Signed Patient: Kaylynn Miguel MR#: [id number] : 1955 Acct:[id number] Age/Sex: 69 / F ADM Date: 02/05/25 [facility] Dr: Aaliyah Watkins MD Ordering Physician: Aaliyah Watkins MD Date of Service: 02/05/25 Procedure(s): XR chest 2V Accession Number(s): [id number] cc: Aaliyah Watkins MD EXAMINATION: XR CHEST CLINICAL INFORMATION: chornic cough, hx asthma and CHF COMPARISON: October 26, 2024. TECHNIQUE: 2 views of the chest were obtained. FINDINGS: Pulmonary reticular pattern. No consolidation, pleural effusion or pneumothorax. Cardiomediastinal silhouette size is normal. Calcified plaque thoracic aorta. Multilevel marginal osteophyte formation and endplate sclerosis throughout the axial skeleton. Osteopenia versus osteoporosis. Degenerative changes in the shoulders/acromioclavicular joints. XR/XR chest 2V IMPRESSION: Chronic interstitial lung disease. No acute airspace disease. Multilevel spondylosis and mild scoliosis. Degenerative changes in the shoulders. Electronically signed by: Arcenio Ricketts MD 02/05/2025 02:21 PM EDT RP Dictated By: Arcenio Ashford MD Signed By: <Electronically signed by Arcenio Joseph MD in OV> 02/05/25 1421 DD/ 1305 TD/TT: 02/05/25 1320 Quill Collector: Procedure Note Donotuseinterpreter, Image - 02/05/[address] [address] XRay Report Signed Patient: Kaylynn MiguelMR#: [id number] : 4Acct:[id number] Age/Sex: 69 / FADM Date: 02/05/25 Loc: [facility] Attending Dr: Aaliyah Watkins MD Ordering Physician: Aaliyah Watkins MD Date of Service: 02/05/25 Procedure(s): XR chest 2V Accession Number(s): [id number] cc: Aaliyah Watkins MD EXAMINATION: XR CHEST CLINICAL INFORMATION: chornic cough, hx asthma and CHF COMPARISON: October 26, 2024. TECHNIQUE: 2 views of the chest were obtained. FINDINGS: Pulmonary reticular pattern. No consolidation, pleural effusion or pneumothorax. Cardiomediastinal silhouette size is normal. Calcified plaque thoracic aorta. Multilevel marginal osteophyte formation and endplate sclerosis throughout the axial skeleton. Osteopenia versus osteoporosis. Degenerative changes in the shoulders/acromioclavicular joints. XR/XR chest 2V IMPRESSION: Chronic interstitial lung disease. No acute airspace disease. Multilevel spondylosis and mild scoliosis. Degenerative changes in the shoulders. Electronically signed by: Arcenio Ricketts MD 02/05/2025 02:21 PM EDT RP Dictated By: rAcenio Ashford MD Signed By: <Electronically signed by Arcenio Joseph MDin OV> 02/05/25 1421 DD/ 1305 TD/TT: 02/05/25 1320 Quill Collector: Aaliyah Watkins MD IMG XR PROCEDURES Final Re sult * (ABNORMAL) POCT glycosylated hemoglobin (Hgb A1c) (12/29/2024 1:54 PM EDT) Hemoglobin A1C 7.3(A) 4.0 - 5.7 % QC Media Lot # [id number] Lot# Expiration Date , Blood Capillary blood specimen / Unknown 12/29/2024 1:54 PM EDT Madisyn Wolf MD POINT OF CARE TEST ENTER/EDIT OR DERABLES Final Result * POCT glucose manually resulted (12/29/2024 1:53 PM EDT) Glucose Blood, POC 94 60 - 200 mg/dL QC Media Lot # [id number] Lot# Expiration Date ,025 Blood Capillary blood specimen / Unknown 12/29/2024 1:53 PM EDT Madisyn Wolf MD POINT OF CARE TEST ENTER/EDIT OR DERABLES Final Result * (ABNORMAL) Lipid Panel with Reflex to Direct LDL (02/11/2024 1:53 PM EDT) Triglycerides 104 <150 mg/dL [facility] Comment:Desirable Triglyceri de: less than 150 mg/dLBorderline High Triglyceride 150-199 mg/dLHigh Triglyceride: 200-499 mg/dLVery High Triglyceride: greater than or equal to 5OO mg/dL Cholesterol 216(H) <200 mg/dL [facility] Comment:Desirable Cholestero l: less than 200 mg/dLBorderline High Cholesterol: 200-239 mg/dLHigh Cholesterol: greater than 239 mg/dL LDL Cholesterol Calculated 141(H) <100 mg/dL [facility] Comment:Desirable LDL: less than 100 mg/dLNear Optimal/Above Optimal LDL: 110- 129 mg/dLBorderline High LDL: 130-159 mg/dLHigh LDL: 160-189 mg/dLVery High LDL: greater than or equal to 190 mg/dL HDL Cholesterol 55 >40 mg/dL [facility] Comment:Desirable HDL: great er than 40 mg/dL Note: This HDL assay may give artificially low results in patients with liver disease. Blood 02/11/2024 1:53 PM EDT 02/11/2024 4:09 PM EDT us Madisyn Wolf MD LAB BLOOD ORDERABLES Final Resul t Performing Organization Address [facility] Co de Phone Number [facility] [address] [place] [phone] * Albumin, Random Urine W/Creatinine (02/11/2024 1:53 PM EDT) Creatinine, Urine 47.93 mg/dL [facility] Microalbumin Urine <5.0 mg/L [facility] Microalbum Creatinine Ratio Ur TNP <30 ug/mg cr [facility] Comment:Unable to calculate albumin/creatinine ratio due to lowmicroalbumin or creatinine result. Urine 02/11/2024 1:53 PM EDT 02/11/2024 4:01 PM EDT Madisyn Wolf MD LAB URINE ORDERABLES Final Resul t Performing Organization Address [facility] Co de Phone Number [facility] [address] [place] [address] [phone] * Hepatitis C Antibody with Reflex to HCV, RNA, Quantitative, Real-Time PCR (02/11/2024 1:53 PM EDT) Hepatitis C Antibody Nonreactive Nonreactive [facility] Comment:Antibodies to HCV no t detected; does not exclude early acuteHCV infection. Blood Venous blood specimen / Unknown 02/11/2024 1:53 PM EDT 02/11/2024 4:09 PM EDT Madisyn Wolf MD LAB BLOOD ORDERABLES Final Resul t [facility] [address] [place] [address] [phone] * DIGITAL BILATERAL SCREEN 1 (03/18/2018 11:24 AM EDT) Anatomical Region Laterality Modality Breast Bilateral Mammography 03/18/2018 11:2 4 AM EDT Narrative 03/18/2018 11:27 AM EDT Refer to the Notes tab for result details [facility] Procedure: DIGITAL BILATERAL SCREEN 1 Procedure Note Provider, MD Jeff - 09/23/2022 Refer to the Notes tab for result details [facility] Procedure: DIGITAL BILATERAL SCREEN 1 Madisyn Wolf MD IMG BI PROCEDURES Final Result from Last 3 Months or Most Recently Relevant to Health Maintenance [place] [id number] [facility] [place] [address] DENTAL - HSN FULL (MEDICAID) DENTAL [facility] PPO Care Teams Video And Sound Recorder Relationship Specialty Start Date End Date Madisyn Wolf MD [address] [place] [phone] PCP - General Family Medicine 07/02/18 Narendra Storey, PharmD [address] [place] [id number] Pharmacist Internal Medicine 09/09/24
[2025-02-23 11:09] LABS: MANUAL DIFF FLAG NO
[2025-02-23 11:10] LABS: Hematocrit 32.7 % (37.0-47.0); Hemoglobin 10.6 g/dl (12.0-16.0); Imm Gran Abs Auto 0.03 X10*3/uL (0.00-0.03); Imm Gran Pct Auto 0.3 % (0.0-0.4); Lymphocytes Absolute Auto 2.5 X10*3/uL (1.2-4.9); Mean Corpuscular HGB Conc 32.4 g/dl (31.0-35.0); Mean Corpuscular Hemoglobin 26.8 pg (27.0-33.0); Mean Corpuscular Volume 82.8 fL (80.0-98.0); NRBC Abs Auto 0.000 X10*3/uL (0.0-0.012); NRBC Pct Auto 0.0 /100WBC (0.0-0.2); Platelet Count 404 X10*3/uL (160-400); Red Blood Count 3.95 X10*6/uL (4.20-5.50); White Blood Count 8.6 X10*3/uL (4.8-10.8)
[2025-02-23 12:06] LABS: Alanine Aminotransferase 18 U/L (0-31); Albumin Level 4.1 g/dL (3.5-5.0); Alkaline Phosphatase 57 U/L (39-117); Anion Gap 11 (12-20); Aspartate Amino Transferase 24 U/L (5-31); Blood Urea Nitrogen 10 mg/dL (9-16); Calcium 9.2 mg/dL (8.4-10.2); Carbon Dioxide 27 mmol/L (22-29); Chloride 105 mmol/L (96-108); Cholesterol 182 mg/dL (<200); Estimated Glomerular Filt Rate > 60; HDL Cholesterol 40 mg/dL (>40); Potassium 4.2 mmol/L (3.3-5.1); Sodium 139 mmol/L (135-145); Total Protein 7.0 g/dL (6.5-8.0); Triglycerides 204 mg/dL (<150)
[2025-02-23 12:46] LABS: Reflex LDLD? No
[2025-02-26 12:04] LABS: TS Negative Control Passed; TS Panel A 1; TS Panel B 0; TS Positive Control Passed; TSpotTB Negative (Negative)
== END 2025-02-23 09:34 | disposition home or self-care (01) ==
LOC: HO.HHCL 09:33
PROVIDERS: PCP Family Medicine; Visit Provider Family Medicine
DX: I10 Essential (primary) hypertension (principal); E78.5 Hyperlipidemia, unspecified; R05.3 Chronic cough; Z11.1 Encounter for screening for respiratory tuberculosis
CPT/HCPCS: 36415; 80053; 80061; 85025; 86481

== ENCOUNTER 2025-03-23 09:24 | Outpatient (AMB) | payer MEDICARE, SELFPAY ==
--- NOTE | 2025-03-23 09:47 | MHC.OFFVIS ---
Vital Signs 03/23/25 09:52 Height 5 ft Weight 115 lb 1.301 oz BMI 22.5 BP 124/66 Blood Pressure Location Lt brachial Position Sitting Pulse 73 Pulse Source Monitor Intake Visit Reasons: TRAIN BRAKER/Dr. Wolf/Cardiomyopathy Intake Note: TRAIN BRAKER/: Luciano/ CArdiomyopathy Mussel Opener Required: No Accompanied by: Self / Same As Patient Allergies lisinopril Allergy (Severe, Verified 03/23/25 10:18) Angioedema latex (LATEX) Allergy (Intermediate, Verified 10/26/24 11:42) RASH risedronate sodium Allergy (Unknown, Verified 10/26/24 11:42) Unknown fiberglass Allergy (Unknown, Uncoded 03/23/25 10:18) Unknown latex Allergy (Unknown, Uncoded 09/02/20 08:58) Unknown PLASTIC Allergy (Unknown, Uncoded 03/18/20 16:22) UNKNOWN statins Allergy (Unknown, Uncoded 09/02/20 08:58) Unknown Medication List - Last Reconciled 03/23/25 by Romeo Topete MD acetaminophen ER 650 mg PO TID PRN albuterol sulfate 90 mcg/actuation 2 inhalations inhalation Q4-6H PRN atorvastatin 80 mg PO BEDTIME blood sugar diagnostic As directed blood-glucose meter (FreeStyle Lite Meter kit) As directed blood-glucose meter (FreeStyle Lite Meter kit) 4 times a day cetirizine 10 mg PO DAILY cholecalciferol (vitamin D3) 25 mcg PO DAILY conjugated estrogens (Premarin) 500 mg vaginal QWEEK diclofenac sodium 1% 2 grams topical TID PRN duloxetine 60 mg PO DAILY fluticasone propion-salmeterol 250-50 mcg/dose 1 ea inhalation BID PRN fluticasone propionate 50 mcg/actuation 1 spray intranasal DAILY PRN gabapentin 100 - 200 mg PO BEDTIME PRN hydroxyzine pamoate 25 mg PO Q8H PRN insulin glargine (Lantus Solostar U-100 Insulin) 16 units subcut DAILY lancets As directed metoprolol succinate ER 25 mg PO DAILY montelukast 10 mg PO DAILY pen needle, diabetic Twice a day pen needle, diabetic (BD Dianelys 2nd Gen Pen Needle) once a day HPI Comments Details: [age] year female who is referred to us for cardiomyopathy. In September 2024 she had acute shortness of breath where she felt as if her throat is closing and came to [facility] and ruled in for NSTEMI. At this stage he was transferred to [facility] underwent cardiac catheterization which showed mild disease in the PDA and diagonal branch. Echocardiography apparently done at [facility] showed moderate LV dysfunction and there was concern about coronary vasospasm versus atypical takotsubo cardiomyopathy. The patient has been on lisinopril for long time and has been using it regularly. Last Sunday she also had an episode where she felt her throat was closing. Clinical story is concerning for angioedema due to lisinopril. She is denying any other symptoms otherwise. No chest discomfort shortness of breath. She has been a chronic smoker and smokes half a pack per day and was a heavy smoker before till September 2024. She smokes pot. No other drug abuse. [facility] Medical History (Updated 03/23/25 @ 10:20 by Romeo Topete MD) History of non-ST elevation myocardial infarction (NSTEMI) (~09/2024) Hypertension Dyslipidemia Diabetes type 2, uncontrolled roasterman (current) use of insulin Nicotine dependence, cigarettes, uncomplicated Marijuana use History of crack cocaine use Non-adherence to medical treatment Vitamin D deficiency Fibromyalgia Depression Anxiety Osteopenia Obesity (BMI 30-39.9) Surgical History History of cardiac cath History of partial hysterectomy History of tubal ligation History of carpal tunnel surgery of right wrist History of colonoscopy Family History Father Heart disease Diabetes Mother Diabetes Arthritis Social History Patient Tobacco Use Status: Current everyday Tobacco user Cigarette Packs Per Day: 0.75 Cigarettes Per Day: 15.0 Substance Use Type: Marijuana Review of Systems Const Denies chills, Denies fatigue, Denies fever(s), Denies frequent falls, Denies weakness, Denies weight gain and Denies weight loss ENT Denies dizziness Card Denies chest pain, Denies leg edema, Denies lightheadedness, Denies palpitations, Denies dyspnea, Denies dyspnea on exertion and Denies orthopnea Resp Denies cough, Denies dyspnea and Denies dyspnea on exertion GI Denies bloating and Denies change in bowel habits Musc Denies muscle weakness, Denies numbness and Denies tingling Neuro Denies dizziness, Denies frequent falls, Denies numbness, Denies tingling and Denies weakness Endo Denies fatigue and Denies palpitations Physical Exam Vital Signs: Last Vital Signs Pulse 73 03/23/25 09:52 BP 124/66 03/23/25 09:52 BMI result Body Mass Index 22.5 GENERAL APPEARANCE: in no acute distress, pleasant. NECK: no carotid bruit, no jugular venous distention. SKIN: no suspicious lesions, warm and dry. HEART: no murmurs, regular rate and rhythm. LUNGS: clear to auscultation bilaterally. ABDOMEN: soft, nontender. EXTREMITIES: no edema. PERIPHERAL PULSES: equal. NEUROLOGIC: No gross deficits, AAO X 3 Office Procedures EKG Details: Sinus rhythm 83 beats per minute, normal axis, normal EKG, QTC 407 milliseconds. [id number], Complete Assessment & Plan Assessment & Plan (1) Cardiomyopathy: Code(s): I42.9 - Cardiomyopathy, unspecified Category: Medical Plan Pleasant 69-year-old lady who is referred to us for cardiomyopathy. In September 2024 she presented to [facility] with what appears like an episode of angioedema due to lisinopril and was transferred to [facility] because she had elevated troponins. Cardiac catheterization done at [facility] showed no significant coronary disease. She was thought to have nonischemic cardiomyopathy with differentials including takotsubo cardiomyopathy. She is denying any chest discomfort or shortness of breath. Her EKG is normal. She had another episode last Sunday where she felt that her throat was closing. I think the lisinopril has to be discontinued. I am adding this as an allergy to her list and she should not use SAM inhibitors in the future. I will repeat an echocardiogram to see if LV function has recovered because that will go in favor of stress-induced myopathy. We will see her back in few months. Thank you for allowing me to participate in the care of your patient. Please feel free to contact me if you have any questions. Orders: Orders CA echo transthoracic complete Today I42.9 - Cardiomyopathy, unspecified Coding Level of Care Code New Pt Level 4 (89077) Diagnoses Cardiomyopathy I42.9 CPT Codes EKG - CPT: 95280-[id number], Complete ([id number])
[2025-03-23 09:52] VITALS: BP 124/66; PULSE 73; BMI 22.5
--- OUTSIDE RECORDS SUMMARY | 2025-03-23 11:05 | XMS_ITS | Encounter Summary ---
Author Organization [facility] [employer] Address [address] [place] [address] [address] [place] [address] Care Team Providers Care Master Tax Advisor Name Role Phone Madisyn Wolf MD Primary Care Provider [phone] Narendra Storey PharmD Unavailable [phone] Encounter Details Date Type Department Care Team (Late st Contact Info) Description 01/17/2023 Orders Only [facility] [address] [place] [phone] Madisyn Wolf MD [address] [place] [phone] Social History Tobacco Use Types Packs/Day Years Used Date Smoking Tobacco: Every Day Cigarettes 1 0.5 Passive Smoke Exposure: Current Smokeless Tobacco: Former Alcohol Use Standard Drinks/Week Comments Never 0 (1 standard drink = 0.6 oz pur e alcohol) Depression Answer Date Recorded Patient Health Questionnaire-9 Score 7 07/31/2022 Depression Answer Date Recorded Patient Health Questionnaire-2 Score 2 07/31/2022 Comments Unknown Sex and Gender Information Value Date Recorded Sex Assigned at Female 05/01/2022 10:19 AM EDT Legal Sex Female 10:19 AM EDT Gender Identity Female 05/01/2022 10:19 AM EDT Sexual Orientation Straight 05/01/2022 10 :19 AM EDT documented as of this encounter Plan of Treatment Upcoming Encounters Date Type Department Care Team (Late Contact Info) Description 04/06/2025 3:15 PM EDT Office Visit [facility] [address] [place] [phone] Madisyn Wolf MD [address] [place] [address] [place] [address] 05/07/2025 1:00 PM EST Office Visit [facility] OPTOMETRY [address] [place], [place] [phone] Antoinette Harvey, OD [address] [place] [address] 06/22/2025 10:15 AM EST Office Visit [facility] ADULT DENTAL [address] [place] [address] Stephenie Kathleen documented as of this encounter Visit Diagnoses Not on filedocumented in this encounter Additional Health Concerns Assessment Noted Time PHQ-9 Depression Total Score: 7 07/31/19 23 3:49 PM EST documented as of this encounter Care Teams Master Tax Advisor Relationship Specialty Start Date End Date Madisyn Wolf MD [address] [place] [address] [phone] PCP - General Family Medicine 07/02/18 Narendra Storey, PharmD [address] [place] [address] [phone] Pharmacist Internal Medicine 09/09/24 documented as of this encounter
--- OUTSIDE RECORDS SUMMARY | 2025-03-23 11:05 | XMS_ITS | Encounter Summary ---
Author Organization [employer] Address [address] [place] [address] Care Team Providers Care Time Study Technician Name Role Phone Madisyn Wolf MD Primary Care Provider [phone] Narendra Storey PharmD Unavailable [phone] Reason for Visit * Reason Comments Med Refill Encounter Details Date Type Department Care Team ([facility] st Contact Info) Description 07/28/2024 Refill [facility] [address] [place] [address] Madisyn Wolf MD [address] [place] [address] Social History Tobacco Use Types Packs/Day Years Used Date Smoking Tobacco: Some Days Cigarettes Passive Smoke Exposure: Current Smokeless Tobacco: Former Alcohol Use Standard Drinks/Week Comments Never 0 (1 standard drink = 0.6 oz pur e alcohol) Depression Answer Date Recorded Patient Health Questionnaire-9 Score 6 10/25/2023 Patient Health Questionnaire-9 Score 6 10/25/2023 Last PHQ-9: Questionnaire Data Not on file 0 10/25/2023 Housing Stability Answer Date Recorded What is your housing situation today? I have colby masterson 04/17/[address] you li ve. Do you have problems with any of the following? None of the above 04/17/2023 Food Insecurity Answer Date Recorded Within the past 12 months, y ou worried that your food would run out before you got money to buy more: Sometimes True 2022 Within the past 12 months,th e food you bought just didn't last and you didn't have enough money to get more: Sometimes True 04/17/2023 Transportation Answer Date Recorded In the past 12 months, has l ack of transportation kept you from medical appts, meetings, work or from getting things needed for daily living? Yes, it has kept me from medical appointments or getting medications. 04/10/2023 Utilities Answer Date Recorded In the past 12 months, has t he electric, gas, oil or water company threatened to shut off services in your home? No 04/17/2023 Depression Answer Date Recorded Patient Health Questionnaire-2 Score 2 10/25/2023 Comments Unknown Sex and Gender Information Value Date Recorded Sex Assigned at Female 05/01/2022 10:19 AM EDT Legal Sex Female 10:19 AM EDT Gender Identity Female 05/01/2022 10:19 AM EDT Sexual Orientation Straight 05/01/2022 10 :19 AM EDT documented as of this encounter Plan of Treatment Upcoming Encounters Date Type Department Care Team (Late st Contact Info) Description 04/06/2025 3:15 PM EDT Office Visit [facility] [address] [place] [address] Madisyn Wolf MD [address] [place] [address] 05/07/2025 1:00 PM EST Office Visit [facility] [address] [place] [address] Antoinette Harvey, OD [address] [place] [address] 06/22/2025 10:15 AM EST Office Visit [facility] [address] [place] [address] Stephenie Kathleen documented as of this encounter Visit Diagnoses Not on filedocumented in this encounter Additional Health Concerns Assessment Noted Time PHQ-9 Depression Total Score: 6 10/25/19 24 11:14 AM EDT documented as of this encounter Care Teams Time Study Technician Relationship Specialty Start Date End Date Madisyn Wolf MD [address] [place] [id number] PCP - General Family Medicine 07/02/18 Narendra Storey, PharmD [address] [place] [id number] Pharmacist Internal Medicine 09/09/24 documented as of this encounter
--- OUTSIDE RECORDS SUMMARY | 2025-03-23 11:05 | XMS_ITS | Clinical Summary ---
Author Organization [employer] Address [address] [place] [address] Care Team Providers Care Contact Center Associate Name Role Phone Madisyn Wolf MD Primary Care Provider [phone] Narendra Storey PharmD Unavailable [phone] Allergies Active Allergy Reactions Criticality Noted Date Comments Metformin Medium 07/12/2022 GI side effects Risedronate 02/01/2012 Other reaction(s): bodyache Simvastatin 08/06/2022 GI upset Medications DULoxetine (Cymbalta) [address] capsule TAKE 1 CAPSULE BY MOUTH TWICE DAILY 023 Active Ruxolitinib Phosphate (Opzelura) 1.5 % creamIndication s:Vitiligo Apply 3.5 g topically 2 times daily. Apply a thin layer to affected area(s) twice daily; DO not exceed 100 g per 2 week or 60 g per week. 180 g 11 023 Active Estrogens Conjugated (Premarin) 0.625 MG/GM cream [...] DAYS BEFORE SURGERY Active Pentips Generic Pen Eighty Four 32G X 4 MM miscIndications :Type 2 diabetes mellitus with hyperglycemia, with long-term current use of insulin ([facility]) USE DIRECTED EVERY DAY WITH lantus solostar 100 each 3 024 Active triamcinolone (Kenalog) 0.1 % cream Apply to affected area once daily. 30 g 3 025 Active Continuous Glucose Assembler Installer General (FreeStyle Ron 3 Comstock) device 1 each Once per day. Use [...] failure or extremes of BG 100 each 025 2025 Active insulin glargine (Lantus SoloStar) 100 UNIT/ML penIndications: Type 2 diabetes mellitus with hyperglycemia, with long-term current use of insulin ([facility]) INJECT 16 UNITS SUBCUTANEOUSLY EVERY DAY Active Diclofenac Sodium 1 % gel APPLY 2 GRAMS TO AFFECTED AREA(S) THREE TIMES DAILY IN THE MORNING, AT NOON, AND AT BEDTIME NEEDED FOR PAIN 100 g 2 025 Active montelukast (Singulair) 10 MG tablet TAKE 1 TABLET BY MOUTH EVERY EVENING 90 tablet 3 025 Active cyclobenzaprine (Flexeril) 10 MG tablet TAKE 1/2 TABLET BY MOUTH AT BEDTIME NEEDED FOR MUSCLE SPASMS 30 tablet 2 Active TRUEplus Lancets 33G miscIndications :Type 2 diabetes mellitus with hyperglycemia, with long-term current use of insulin ([facility]) TEST BLOOD SUGAR FOUR TIMES DAILY 100 each 025 Active glucose blood (FREESTYLE LITE) test stripIndication s:Type 2 diabetes mellitus with hyperglycemia, with long-term current use of insulin ([facility]) Use bid. Dx diabetes 60 each Active lisinopril 2.5 MG tablet TAKE 1 TABLET BY MOUTH EVERY DAY 90 tablet 3 025 Active acetaminophen (Tylenol 8 Hour) 650 MG ER tablet TAKE 1 TABLET BY MOUTH THREE TIMES DAILY IN THE MORNING, AT NOON, AND AT BEDTIME NEEDED FOR MILD OR MODERATE PAIN 60 tablet Active albuterol (Ventolin HFA) 108 (90 [...] MOUTH AFTER USING. 60 each 025 Active Accu-Chek Guide Test test stripIndication s:Type 2 diabetes mellitus with hyperglycemia, with long-term current use of insulin ([facility]) USE DIRECTED TO TEST BLOOD SUGAR THREE TIMES DAILY DIRECTED 100 each 025 Active Accu-Chek Softclix Lancets lancetsIndicati ons:Type 2 diabetes mellitus with hyperglycemia, with long-term current use of insulin ([facility]) USE DIRECTED TO TEST BLOOD SUGAR THREE TIMES DAILY 100 each 025 Active Blood Glucose Monitoring Suppl (Accu-Chek Guide Hi) w/Device kitIndications: Type 2 diabetes mellitus with hyperglycemia, with long-term current use of insulin ([facility]) USE DIRECTED TO TEST BLOOD SUGAR THREE TIMES DAILY 1 kit 025 Active benzonatate (Tessalon Perles) 100 MG capsuleIndicati ons:Chronic cough Take 1 capsule (100 mg) by mouth if needed in the morning, at noon, and at bedtime for cough. Do not crush or chew. 30 capsule 1 025 Active ferrous sulfate (Fe Tabs) 325 (65 Fe) MG EC tablet Take 1 tablet (325 mg) by mouth every other day. Do not crush, chew, or split. 45 tablet 3 025 2025 Active hydrOXYzine pamoate (Vistaril) 25 MG capsule TAKE 1 CAPSULE BY MOUTH EVERY 8 HOURS NEEDED FOR ITCHING 90 capsule 1 025 Active Alcohol Swabs (Alcohol Prep) 70 % pads USE TO TEST BLOOD SUGAR 100 each 11 025 Active metoprolol succinate XL (Toprol-XL) 25 MG 24 hr tabletIndicatio ns:Primary hypertension Take 1 tablet (25 mg) by mouth Once per day. 90 tablet 3 025 Active atorvastatin (Lipitor) 80 MG tablet Take 1 tablet (80 mg) by mouth at bedtime. 90 tablet 3 025 Active ASPIRIN 81 MG chewable tablet Chew 1 tablet (81 mg) Once per day. 90 tablet 3 025 Active D3-1000 25 MCG (1000 UT) capsuleIndicati ons:Routine health maintenance TAKE 1 CAPSULE BY MOUTH EVERY DAY 90 capsule 025 Active cetirizine (ZyrTEC) 10 MG tablet TAKE 1 TABLET BY MOUTH DAILY 90 tablet 025 Active Alcohol Swabs (Alcohol Prep) 70 % pads USE TO TEST BLOOD SUGAR 023 2024 Discontinued cholecalciferol (Vitamin D High Potency) 25 MCG (1000 UT) capsuleIndicati ons:Routine health maintenance TAKE 1 CAPSULE BY MOUTH EVERY DAY 90 capsule 3 024 2024 Discontinued atorvastatin (Lipitor) 80 MG tablet Take 1 tablet by mouth at bedtime. 025 2024 Discontinued(R eorder (will not trigger notification to Pharmacy)) ASPIRIN 81 MG chewable tablet Chew 1 tablet Once per day. 2024 Discontinued(R eorder (will not trigger notification to Pharmacy)) cetirizine (ZyrTEC) 10 MG tablet TAKE 1 TABLET BY MOUTH EVERY DAY 90 tablet 025 2024 Discontinued hydrOXYzine pamoate (Vistaril) 25 MG capsule TAKE 1 CAPSULE BY MOUTH EVERY 8 HOURS NEEDED FOR ITCHING 90 capsule 1 025 2024 Discontinued metoprolol succinate XL (Toprol-XL) 25 MG 24 hr tabletIndicatio ns:Primary hypertension Take 1 tablet (25 mg) by mouth Once per day. 30 tablet 1 025 2024 Discontinued(R eorder (will not trigger [...] positive FELICITAS, she was referred back to inorganic chemist for evaluation of autoimmune disorder. She did [...] medication at this time. - Consulted with Ski Top Trimmer who recommended UV-B - We will continue [...] positive FELICITAS, she was referred back to inorganic chemist for evaluation of autoimmune disorder. She did [...] medication at this time. - Consulted with Ski Top Trimmer who recommended UV-B - We will continue [...] positive FELICITAS, she was referred back to inorganic chemist for evaluation of autoimmune disorder. She did [...] medication at this time. - Consulted with Ski Top Trimmer who recommended UV-B - We will continue [...] positive FELICITAS, she was referred back to inorganic chemist for evaluation of autoimmune disorder. She did [...] medication at this time. - Consulted with Ski Top Trimmer who recommended UV-B - We will continue [...] positive FELICITAS, she was referred back to inorganic chemist for evaluation of autoimmune disorder. She did [...] medication at this time. - Consulted with Ski Top Trimmer who recommended UV-B - We will continue [...] positive FELICITAS, she was referred back to inorganic chemist for evaluation of autoimmune disorder. She did [...] medication at this time. - Consulted with Ski Top Trimmer who recommended UV-B - We will continue [...] positive FELICITAS, she was referred back to inorganic chemist for evaluation of autoimmune disorder. She did [...] positive FELICITAS, she was referred back to inorganic chemist for evaluation of autoimmune disorder. She did [...] positive FELICITAS, she was referred back to inorganic chemist for evaluation of autoimmune disorder. She did [...] positive FELICITAS, she was referred back to inorganic chemist for evaluation of autoimmune disorder. Assessment & [...] positive FELICITAS, I will refer back to inorganic chemist for evaluation of autoimmune disorder. PTSD (post-traumatic [...] - if no improvement, will refer to wool washing machine operator and/or consider trial of cryotherapy Tendinitis of right rotator cuff 11/13/2018 Assessment & Plan (08/06/2022 4:15 PM EST): - MRI in 2018 showed rotator cuff tear - Previously treated by [facility] and received steroid injection - Surgical [...] Assessment & Plan (12/29/2024 10:59 AM EDT): -[facility] provider: Dr. Oziel KLINE. -Previously referred to inorganic chemist for positive FELICITAS and arthralgia / myalgia, but she did not keep appt -Continue current medications: duloexetine Assessment & Plan (04/24/2024 12:08 PM EDT): -[facility] provider: Dr. Oziel KLINE. -Previously referred to inorganic chemist for positive FELICITAS and arthralgia / myalgia, but she did not keep appt -Continue current medications: duloexetine Assessment & Plan (10/25/2023 1:47 PM EDT): -[facility] provider: Dr. Oziel KLINE. -Previously referred to inorganic chemist for positive FELICITAS and arthralgia / myalgia, but she did not keep appt -Continue current medications: duloexetine Assessment & Plan (04/06/2023 6:56 AM EDT): -[facility] provider: Dr. Oziel KLINE. -Previously referred to inorganic chemist for positive FELICITAS and arthralgia / myalgia, but she did not keep appt -Continue current medications: duloexetine Assessment & Plan (02/05/2023 11:42 AM EDT): -[facility] provider: Dr. Oziel KLINE. -Previously referred to inorganic chemist for positive FELICITAS and arthralgia / myalgia, but she did not keep appt -Continue current medications: Cymbalta Assessment & Plan (10/22/2022 6:53 AM EDT): -[facility] provider: Dr. Oziel KLINE. -Previously referred to inorganic chemist for positive FELICITAS and arthralgia / myalgia, but she did not keep appt -Continue current medications: Cymbalta Assessment & Plan (08/06/2022 4:17 PM EST): -[facility] provider: Dr. Oziel KLINE. -Previously referred to inorganic chemist for positive FELICITAS and arthralgia / myalgia, but she did not keep appt -Continue current medications: Cymbalta Carpal tunnel syndrome 07/20/2015 Assessment & Plan (07/07/2024 12:17 PM EST): - Pt reports neuropathy, most likely tied to her carpal tunnel - last NCT/EMG in 2018 - previously followed by [facility] - Recommended to wear wrist brace - possible cervical radiculopathy Assessment & Plan (02/11/2024 3:08 PM EDT): - bilateral - last NCT/EMG in 2018 - previously followed by [facility] - wear wrist brace - possible cervical radiculopathy Assessment & Plan (08/06/2022 4:14 PM EST): - bilateral - last NCT/EMG in 2018 - previously followed by [facility] Chronic depression 07/20/2015 Assessment & Plan (02/21/2025 6:22 AM EDT): [facility] provider: Dr. Oziel KLINE. -Continue current medications: duloxetine; buspirone -Grieving from her who of COVID19 in 2020 Assessment & Plan (12/29/2024 10:58 AM EDT): [facility] provider: Dr. Oziel KLINE. -Continue current medications: duloxetine; buspirone -Grieving from her who of COVID19 in 2020 Assessment & Plan (11/04/2024 4:05 PM EDT): [facility] provider: Dr. Oziel KLINE. -Continue current medications: duloxetine; buspirone -Grieving from her who of COVID19 in 2020 Assessment & Plan (07/12/2024 7:19 AM EST): [facility] provider: Dr. Oziel KLINE. -Continue current medications: duloxetine; buspirone -Grieving from her who of COVID19 in 2020 Assessment & Plan (04/24/2024 2:41 PM EDT): [facility] provider: Dr. Oziel KLINE. -Continue current medications: duloexetine -Grieving from her who of COVID19 in 2020 Assessment & Plan (02/11/2024 3:16 PM EDT): [facility] provider: Dr. Oziel KLINE. -Continue current medications: duloexetine -Grieving from her who of COVID19 in 2020 Assessment & Plan (08/04/2023 6:31 PM EST): [facility] provider: Dr. Oziel KLINE. -Continue current medications: duloexetine -Grieving from her who of COVID19 in 2020 Assessment & Plan (05/23/2023 10:15 AM EST): [facility] provider: Dr. Oziel KLINE. -Continue current medications: duloexetine -Grieving from her who of COVID19 in 2020 Assessment & Plan (04/06/2023 7:09 AM EDT): [facility] provider: Dr. Oziel KLINE. -Continue current medications: duloexetine -Grieving from her who of COVID19 in 2020 Assessment & Plan (10/18/2022 10:27 AM EDT): [facility] provider: Dr. Oziel KLINE. -Continue current medications: Cymbalta Assessment & Plan (07/31/2022 4:55 PM EST): [facility] provider: Dr. Oziel KLINE. -Continue current [...] on 11/04/24 -Previously followed [place] [facility] -Encouraged to continue working on lifestyle [...] Humalog 50/50 15 units x2/day was prescribed pressure steamer tender in the past. Patient self discontinued Humalog. DM Maintenance: - Last eye exam: 03/12/24. No retinopathy. - Last foot exam: 11/04/24 - Last microalbumin test: 02/11/24 no microalbuminuria - Last Lipid Profile: 02/11/24 Total cholesterol 216; LDL 141; Triglyceride 104; HDL 55 - Last dental exam: [facility] Assessment & Plan (12/31/2024 10:55 PM EDT): -A1C 7.3% on 12/29/24, improved from 7.7% on 11/04/24 -Previously followed [place] [facility] -Encouraged to continue working on lifestyle [...] Humalog 50/50 15 units x2/day was prescribed pressure steamer tender in the past. Patient self discontinued Humalog. DM Maintenance: - Last eye exam: 03/12/24. No retinopathy. - Last foot exam: 11/04/24 - Last microalbumin test: 02/11/24 no microalbuminuria - Last Lipid Profile: 02/11/24 Total cholesterol 216; LDL 141; Triglyceride 104; HDL 55 - Last dental exam: [facility] Assessment & Plan (11/04/2024 4:35 PM EDT): -A1C 7.7% on 11/04/24, improved from 8.9% on 07/07/24 -Previously followed by [facility] -Encouraged to continue working on lifestyle [...] Humalog 50/50 15 units x2/day was prescribed pressure steamer tender in the past. Patient self discontinued Humalog. DM Maintenance: - Last eye exam: 03/12/24. No retinopathy. - Last foot exam: 11/04/24 - Last microalbumin test: 02/11/24 no microalbuminuria - Last lipid profile: 02/11/24 - Last dental exam: [facility] Assessment & Plan (07/12/2024 7:15 AM EST): -A1C 8.9% on 07/07/24 -Previously followed by [facility] -Encouraged to continue working on lifestyle [...] Humalog 50/50 15 units x2/day was prescribed pressure steamer tender in the past. Patient self discontinued Humalog. DM Maintenance: - Last eye exam: 03/12/24. No retinopathy. - Last foot exam: 07/07/24 - Last microalbumin test: 02/11/24 no microalbuminuria - Last lipid profile: 02/11/24 - Last dental exam: [facility] Assessment & Plan (04/24/2024 12:15 PM EDT): -A1C 10.2% on 04/24/24 -Previously followed by [facility] -Encouraged to continue working on lifestyle [...] Humalog 50/50 15 units x2/day was prescribed pressure steamer tender in the past. Patient self discontinued Humalog. DM Maintenance: - Last eye exam: 03/12/24. No retinopathy. - Last foot exam: 04/24/24 - Last microalbumin test: 02/11/24 no microalbuminuria - Last lipid profile: 02/11/24 - Last dental exam: [facility] 2019 Assessment & Plan (02/11/2024 3:14 PM EDT): -A1C 7.1% on 11/20/23 -Previously followed by [facility] -Encouraged to continue working on lifestyle [...] Humalog 50/50 15 units x2/day was prescribed pressure steamer tender in the past. Patient self discontinued Humalog. DM Maintenance: - Last eye exam: 09/12/23. No retinopathy. - Last foot exam: 01/30/23 - Last microalbumin test: 11/23/23 no microalbuminuria - Last lipid profile: 11/23/23 - Last dental exam: [facility] 2019 Assessment & Plan (11/20/2023 10:14 AM EDT): -A1C 7.1% on 11/20/23 -Previously followed by [facility] -Encouraged to continue working on lifestyle [...] Humalog 50/50 15 units x2/day was prescribed pressure steamer tender in the past. Patient self discontinued Humalog. DM Maintenance: - Last eye exam: 09/12/23. No retinopathy. - Last foot exam: 01/30/23 - Last microalbumin test: 07/04/21 UACR 3 - Last FLP: 08/22/22 TC 217; TG 138 ; HDL 66 ; LDL 125 - Last dental exam: [facility] 2019 - Follow up in 3 mo or sooner Assessment & Plan (10/25/2023 12:49 PM EDT): -A1C 7.2% on 10/25/23 -Previously followed by [facility] -Encouraged to continue working on lifestyle [...] Humalog 50/50 15 units x2/day was prescribed pressure steamer tender in the past. Patient self discontinued Humalog. DM Maintenance: - Last eye exam: 09/12/23. No retinopathy. - Last foot exam: 01/30/23 - Last microalbumin test: 07/04/21 UACR 3 - Last FLP: 08/22/22 TC 217; TG 138 ; HDL 66 ; LDL 125 - Last dental exam: [facility] 2019 - Follow up in 3 mo or sooner Assessment & Plan (08/04/2023 6:23 PM EST): -A1C 7.4% on 07/30/23, improving. 8.5% on 04/05/23, improved from 9.3% on 01/30/23. -Previously followed by [facility] -Encouraged to continue working on lifestyle [...] Humalog 50/50 15 units x2/day was prescribed pressure steamer tender in the past. Patient self discontinued Humalog. DM Maintenance: - Last eye exam: 08/04/21. No retinopathy. - Last foot exam: 01/30/23 - Last microalbumin test: 07/04/21 UACR 3 - Last FLP: 08/22/22 TC 217; TG 138 ; HDL 66 ; LDL 125 - Last dental exam: [facility] 2019 - Follow up in 3 mo or sooner Assessment & Plan (05/23/2023 10:12 AM EST): -A1C 8.5% on 04/05/23, improved from 9.3% on 01/30/23, possibly due to poor PO intake -Previously followed by [facility] -Encouraged to continue working on lifestyle [...] Humalog 50/50 15 units x2/day was prescribed pressure steamer tender in the past. Patient self discontinued Humalog. DM Maintenance: - Last eye exam: 08/04/21. No retinopathy. - Last foot exam: 01/30/23 - Last microalbumin test: 07/04/21 UACR 3 - Last FLP: 08/22/22 TC 217; TG 138 ; HDL 66 ; LDL 125 - Last dental exam: [facility] 2019 - Follow up in 3 mo or sooner Assessment & Plan (04/06/2023 6:59 AM EDT): -A1C 8.5% on 04/05/23, improved from 9.3% on 01/30/23, possibly due to poor PO intake -Previously followed by [facility] -Encouraged to continue working on lifestyle [...] Humalog 50/50 15 units x2/day was prescribed pressure steamer tender in the past. Patient self discontinued Humalog. DM Maintenance: - Last eye exam: 08/04/21. No retinopathy. - Last foot exam: 01/30/23 - Last microalbumin test: 07/04/21 UACR 3 - Last FLP: 08/22/22 TC 217; TG 138 ; HDL 66 ; LDL 125 - Last dental exam: [facility] 2019 - Follow up in 3 mo or sooner Assessment & Plan (02/05/2023 11:41 AM EDT): -A1c 9.3% on 01/30/23, trending upwards. 8.1% on 10/18/22 Personal best 6.2% on 07/04/21. -Previously followed by [facility] -Encouraged to continue working on lifestyle [...] Humalog 50/50 15 units x2/day was prescribed pressure steamer tender in the past. Patient self discontinued Humalog. DM Maintenance: - Last eye exam: 08/04/21. No retinopathy. - Last foot exam: 01/30/23 - Last microalbumin test: 07/04/21 UACR 3 - Last FLP: 08/22/22 TC 217; TG 138 ; HDL 66 ; LDL 125 - Last dental exam: [facility] 2019 - Follow up in 3 mo or sooner Assessment & Plan (10/22/2022 6:55 AM EDT): -A1c 8.1% on 10/18/22, worsening from 6.9% on 02/27/22. Personal best 6.2% on 07/04/21. -Previously followed by [facility] -Encouraged to continue working on lifestyle modifications and SMBG. - Increase Lantus to 20 units qhs - Continue Trulicity Treatment Hx: -Previously on Trulicity 1.5 mg weekly, patient has self-discontinued and restarted in Jul 2022 -Jardiance was discontinued due to recurrent vaginal candidiasis -Metformin regular and ER were discontinued due to GI side effect - Humalog 50/50 15 units x2/day was prescribed pressure steamer tender in the past. Patient self discontinued Humalog. DM Maintenance: - Last eye exam: 08/04/21. No retinopathy. - Last foot exam: 11/24/21 - Last microalbumin test: 07/04/21 UACR 3 - Last FLP: 08/22/22 TC 217; TG 138 ; HDL 66 ; LDL 125 - Last dental exam: [facility] 2019 - Follow up in 3 mo or sooner Assessment & Plan (07/31/2022 4:52 PM EST): -A1c 6.9% today 02/27/22. Stable. Personal best 6.2% on 07/04/21. -A1C 12.7% on 10/29/20. -Previously followed by [facility] -Encouraged to continue working on lifestyle modifications and SMBG. - Continue Lantus 25 units qhs - Continue Trulicity 1.5 mg weekly Treatment Hx: -Jardiance was discontinued due to recurrent vaginal candidiasis -Metformin regular and ER were discontinued due to GI side effect - Humalog 50/50 15 units x2/day was prescribed pressure steamer tender in the past. Patient self discontinued Humalog. DM Maintenance: - Last eye exam: 08/04/21. No retinopathy. - Last foot exam: 11/24/21 - Last microalbumin test: 07/04/21 UACR 3 - Last FLP:07/04/21, TC 188; TG 103; HDL 45; LDL 132. - Last dental exam: [facility] 2019 Immunizations: Up to date for [...] arthralgia and myalgia - referred her to inorganic chemist for further evaluation, but patient missed appointment. Assessment & Plan (08/06/2022 4:21 PM EST): - weakly positive FELICITAS 1:80 in 2018 homogenous pattern. RF was negative. ESR was not elevated. - pt seems to have autoimmune disorder because vitiligo is autoimmune process - pt has arthralgia and myalgia - will refer her to inorganic chemist for further evaluation Osteopenia 01/30/2012 Assessment & [...] time and will consider after appt with job site supervisor Resolved Problems Problem Noted Date Diagnosed Date [...] Encounters Date Type Department Care Team Description 03/19/2025 Telephone [facility] [address] [place] [address] Madisyn Wolf MD Telephone call 03/19/2025 Refill [facility] [address] [place] [address] Madisyn Wolf MD Routine health maintenance 03/19/2025 Telephone [facility] [address] [place] [id number] Madisyn Wolf MD 03/18/2025 Telephone [facility] [address] [place] [address] Madisyn Wolf MD lung screening 03/17/2025 Telephone [facility] [address] [place] [address] Madisyn Wolf MD PT1 03/12/2025 Orders Only [facility] [address] [place] [address] Madisyn Wolf MD Primary hypertension 03/12/2025 Telephone [facility] [address] [place] [address] Madisyn Wolf MD MRI CARDIAC ORDER 03/12/2025 Telephone [facility] [place] [address] Madisyn Wolf MD MRI Cardiac order 03/05/2025 Telephone [facility] [place] [address] Madisyn Wolf MD Referral 03/03/2025 Refill [facility] ALICIA Galaviz [phone] Nelly Esposito ANP 02/25/2025 Refill [facility] ALICIA aGlaviz [phone] Madisyn Wolf MD 02/24/2025 Orders Only [facility] [place] [address] Madisyn Wolf MD 02/24/2025 Telephone [facility] [facility] [place] [address] Madisyn Wolf MD [place]rystal 02/24/2025 Telephone [facility] [place] [address] Madisyn Wolf MD lung screening 02/16/2025 3:15 PM EDT Office Visit [facility] [place] [address] Madisyn Wolf MD Primary hypertension (Primary Dx); Cardiomyopathy, unspecified type (CMS/HCC); Type 2 diabetes mellitus with hyperglycemia, with long-term current use of insulin (CMS/[facility]); Tobacco dependence; Mild persistent asthma without complication; Chronic cough; Dyslipidemia; Allergic rhinitis, unspecified seasonality, unspecified trigger; Chronic depression; Bilateral impacted cerumen 02/16/2025 Travel 02/16/2025 Patient Outreach [facility] [place] [address] Madisyn Wolf MD 02/13/2025 Telephone [facility] [place] [address] Madisyn Wolf MD chart prep 02/13/2025 Travel 02/11/2025 Refill [facility] [place] [address] Madisyn Wolf MD Type 2 diabetes mellitus with hyperglycemia, with long-term current use of insulin ([facility]) 02/05/2025 1:00 PM EDT Office Visit [facility] [place], [place] [address] Aaliyah Watkins MD Primary hypertension (Primary Dx); Chronic cough 02/05/2025 Results Follow-Up [facility] [place] [address] Aaliyah Watkins MD XR Chest 2 Views 02/05/2025 Travel 02/04/2025 [address] [place] [address] Madisyn Wolf MD Referral-Cardiology 02/03/2025 Orders Only [address] [place] [address] Madisyn Wolf MD Cardiomyopathy, unspecified type ([facility]) (Primary Dx) 02/02/2025 [address] [place] [address] Madisyn Wolf MD 01/19/2025 10:30 AM EDT Office Visit [facility] [place] [address] [place] DDS Ill-fitting dentures (Primary Dx) 01/14/2025 10:00 AM EDT Office Visit [facility] [place] [address] [place] DDS Ill-fitting dentures (Primary Dx); Missing teeth, acquired; Dental plaque; Bone loss 01/12/2025 [address] [place] [address] Madisyn Wolf MD Lung cancer Screening 01/08/2025 Orders Only [address] [facility] [place] [address] Madisyn Wolf MD Breast cancer screening by mammogram (Primary Dx) 01/06/2025 [address] [facility] [place] [address] Madisyn Wolf MD Referral 01/02/[address] [address] Nelly Esposito ANP 12/29/2024 1:45 PM EDT Office Visit [address] [address] Madisyn Wolf MD Primary hypertension (Primary Dx); Dyslipidemia; Cardiomyopathy, unspecified type (CMS/HCC); Allergic rhinitis, unspecified seasonality, unspecified trigger; Vitamin D deficiency; Osteopenia, unspecified location; Type 2 diabetes mellitus with hyperglycemia, with long-term current use of insulin (CMS/[facility]); Vitiligo; Mild persistent asthma without complication; Tobacco dependence; Fibromyalgia; Chronic depression; PTSD (post-traumatic stress disorder); Encounter for immunization 12/29/2024 Travel 12/26/[address] [address] Madisyn Wolf MD chart prep 12/25/2024 Patient Outreach [address] [address] Madisyn Wolf MD Care Coordination (CHW outreach for SDOH housing search-referral completed ) from Last 3 Months Immunizations Immunization Administration [...] kg (117 lb 6.4 oz) 02/16/2025 3:15 P M EDT Height 147.3 cm (4' 10 ) 02/16/2025 3:15 PM EDT Body Mass Index 24.54 02/16/2025 3:15 PM EDT Plan of Treatment Upcoming Encounters Date Type Department Care Team (Late st Contact Info) Description 04/06/2025 3:15 PM EDT Office Visit [facility] [address] [place] [address] Madisyn Wolf MD [address] [place] [address] 05/07/2025 1:00 PM EST Office Visit [facility] OPTOMETRY [address] [place] [address] Antoinette Harvey, OD [address] [place] [address] 06/22/2025 10:15 AM EST Office Visit [facility] ADULT DENTAL [address] [place] [address] Stephenie Kathleen Health Maintenance Due Date Last Done Comments CT Colonography 1955 Colonoscopy 1955 Colorectal Cancer Screening 1955 Dental X-Ray: Bitewings 1955 FIT DNA/Cologuard 1955 FIT 1955 FOBT 1955 Sigmoidoscopy 1955 Zoster Vaccines (1 of 2) 10/15/2003 RSV Patients and Patients Aged 60 years or older (1 - Risk 60-74 years 1-dose series) 2013 Mammogram 03/18/2020 03/18/2018 Dental Prophylaxis 02/16/2023 08/18/2022 Diabetes: Urine Protein Screening 02/10/2025 02/11/2024, 11/23/2023, 07/04/2021, Additional history exists COVID-19 Vaccine (2 - 2024- season) 2025 04/13/2021 Influenza Vaccine (#1) 2025 , 05/21/2019, 07/04/2018, [...] Screening 12/29/2025 12/29/2024 Tobacco Screening 02/21/2026 02/21/2025 Lipid Panel 02/23/2026 02/23/2025, 01/30, 11/23/2023, Additional history exists Dental X-Ray: Full Mouth 11/13/2026 11/13/2023 DTaP/Tdap/Td [...] Procedure Name Priority Date/Time Associated Diagnosis Comments T-SPOT(R).TB Routine 02/23/2025 9:38 AM EDT Chronic cough CBC WITH AUTO DIFFERENTIAL Routine 02/23/2025 9:38 AM EDT Chronic cough LIPID PANEL WITH REFLEX TO DIRECT LDL Routine 02/23/2025 9:38 AM EDT Dyslipidemia COMPREHENSIVE METABOLIC PANEL Routine 02/23/2025 9:38 AM EDT Primary hypertension POCT INFLUENZA A (ID NOW RAPID MOLECULAR) [...] Recently Relevant to Health Maintenance Results * T-SPOT??.TB (02/23/2025 9:38 AM EDT) Pathologist [facility] T Spot TB Negative Negative [facility] Comment:A negative test resu lt does not exclude the possibilityof exposure to or infection with Mycobacteriumtuberculosis (M. tuberculosis). Patients with recentexposure to TB infected individuals exhibiting anegative T-SPOT.TB result should be considered forretesting within 6 weeks or if other relevant clinicalsymptoms indicate. Results from T-SPOT.TB testing mustbe used in conjunction with each individual'sepidemiological history, current medical status,and results of other diagnostic evaluations.The T-SPOT.TB test is qualitative and results arereported as positive, borderline, or negative, giventhat the test controls perform as expected. In linewith the Centers for Disease Control and Prevention's2010 recommendation to report quantitative measurementsalongside the qualitative result, the laboratoryprovides spot counts for informational purposes only.The T-SPOT.TB test should not be interpreted as aquantitative test. TS PANEL A 1 [facility] TS PANEL B 0 [facility] Negative Control Passed [facility] Positive Control Passed [facility] Comment:For additional infor iram, please refer tohttp://education.[employer]/faq/PCE487(This link is being provided for informational/educational purposes only.)THIS TEST WAS PERFORMED AT:[employer] [id number] [place] [address]JREKXXFJAIDA SHEEHAN MD,PHD 02/23/2025 9:38 AM EDT 02/23/2025 11:03 AM EDT Madisyn Wolf MD LAB BLOOD ORDERABLES Final Resul t Performing Organization Address [facility] Co de Phone Number [facility] [address] [place] [phone] * (ABNORMAL) Lipid Panel with Reflex to Direct LDL (02/23/2025 9:38 AM EDT) Triglycerides 204(H) <150 mg/dL [facility] Comment:Desirable Triglyceri de: less than 150 mg/dLBorderline High Triglyceride 150-199 mg/dLHigh Triglyceride: 200-499 mg/dLVery High Triglyceride: greater than or equal to 5OO mg/dL Cholesterol 182 <200 mg/dL [facility] Comment:Desirable Cholestero l: less than 200 mg/dLBorderline High Cholesterol: 200-239 mg/dLHigh Cholesterol: greater than 239 mg/dL LDL Cholesterol Calculated 102(H) <100 mg/dL [facility] Comment:Desirable LDL: less than 100 mg/dLNear Optimal/Above Optimal LDL: 110- 129 mg/dLBorderline High LDL: 130-159 mg/dLHigh LDL: 160-189 mg/dLVery High LDL: greater than or equal to 190 mg/dL HDL Cholesterol 40(L) >40 mg/dL [facility] Comment:Desirable HDL: great er than 40 mg/dL Note: This HDL assay may give artificially low results in patients with liver disease. Blood 02/23/2025 9:38 AM EDT 02/23/2025 11:25 AM EDT Madisyn Wolf MD LAB BLOOD ORDERABLES Final Resul t Performing Organization Address [facility] Co de Phone Number [facility] [address] [place] [phone] * (ABNORMAL) CBC auto differential (02/23/2025 9:38 AM EDT) White Blood Count 8.6 4.8 - 10.8 X10*3/uL [facility] Red Blood Count 3.95(L) 4.20 - 5.50 X10*6/uL [facility] Hemoglobin 10.6(L) 12.0 - 16.0 g/dl [facility] Hematocrit 32.7(L) 37.0 - 47.0 % [facility] Mean Corpuscular Volume 82.8 80.0 - 98.0 fL [facility] Mean Corpuscular Hemoglobin 26.8(L) 27.0 - 33.0 pg [facility] Mean Corpuscular HGB Conc 32.4 31.0 - 35.0 g/dl [facility] Red Cell Distribution Width 16.0 11.0 - 16.0 % [facility] Platelet Count 404(H) 160 - 400 X10*3/uL [facility] Mean Platelet Volume 10.1 9.4 - 12.3 fL [facility] Neutrophils Percent Auto 58.7 45 - 73 % [facility] Imm Gran Pct Auto 0.3 0.0 - 0.4 % [facility] Lymphocytes Percent Auto 28.5 20 - 40 % [facility] Monocytes Percent Auto 9.7 2 - 11 % [facility] Eosinophils Percent Auto 1.6 0 - 4 % [facility] Basophils Percent Auto 1.2 0 - 2 % [facility] NRBC Pct Auto 0.0 0.0 - 0.2 /100WBC [facility] Neutrophils Absolute Auto 5.1 2.0 - 8.3 x10*3/uL [facility] Imm Gran Abs Auto 0.03 0.00 - 0.03 X10*3/uL [facility] Lymphocytes Absolute Auto 2.5 1.2 - 4.9 X10*3/uL [facility] Monocytes Absolute Auto 0.8 0.1 - 1.2 X10*3/uL [facility] Eosinophils Absolute Auto 0.1 0.0 - 0.4 X10*3/uL [facility] Basophils Absolute Auto 0.1 0.0 - 0.2 X10*3/uL [facility] NRBC Abs Auto 0.000 0.0 - 0.012 X10*3/uL [facility] Blood Venous blood specimen / Unknown 02/23/2025 9:38 AM EDT 02/23/2025 11:03 AM EDT us Madisyn Wolf MD LAB BLOOD ORDERABLES Final Resul t [facility] [address] [place], [place] [phone] * (ABNORMAL) Comprehensive Metabolic Panel (02/23/2025 9:38 AM EDT) Sodium 139 135 - 145 mmol/L [facility] Potassium 4.2 3.3 - 5.1 mmol/L [facility] Chloride 105 96 - 108 mmol/L [facility] Carbon Dioxide 27 22 - 29 mmol/L [facility] Anion Gap 11(L) 12 - 20 [facility] Urea Nitrogen (BUN) 10 9 - 16 mg/dL [facility] Creatinine, Serum 0.73 0.5 - 1.4 mg/dL [facility] Estimated Glomerular Filt Rate >60 [facility] Comment:Chronic Kidney Disea se: Estimated GFR < 60 mL/min/1.50f8Wbyomw Kidney Disease: Estimated GFR < 15 mL/min/1.73m2 Glucose 130(H) 60 - 115 mg/dL [facility] Calcium 9.2 8.4 - 10.2 mg/dL [facility] Bilirubin, Total 0.5 0.0 - 1.0 mg/dL [facility] Aspartate Amino Transferase 24 5 - 31 U/L [facility] Alanine Aminotransferase 18 0 - 31 U/L [facility] Total Protein 7.0 6.5 - 8.0 g/dL [facility] Albumin Level 4.1 3.5 - 5.0 g/dL [facility] Alkaline Phosphatase 57 39 - 117 U/L [facility] Blood Venous blood specimen / Unknown 02/23/2025 9:38 AM EDT 02/23/2025 11:25 AM EDT Madisyn Wlof MD LAB BLOOD ORDERABLES Final Resul t Performing Organization Address [facility]/ZIP Co de Phone Number [facility] [address] [place] [phone] * Influenza A (ID NOW Rapid Molecular) (02/05/2025 1:22 PM EDT) [facility] Influenza A Negative Negative, Indeterminate [facility] Swab 02/05/2025 1:22 PM EDT Aaliyah Watkins MD POINT OF CARE TEST ENTER/E DIT ORDERABLES Final Result Performing Organization Address [facility] Co de Phone Number [facility] [address] [place] [phone] * Influenza B (ID NOW Rapid Molecular) (02/05/2025 1:21 PM EDT) [facility] Influenza B Negative Negative, Indeterminate [facility] Swab 02/05/2025 1:21 PM EDT Aaliyah Watkins MD POINT OF CARE TEST ENTER/E DIT ORDERABLES Final Result Performing Organization Address [facility] Co de Phone Number [facility] [address] [place] [phone] * POCT Rapid COVID Ag (02/05/2025 1:16 PM EDT) [facility] Rapid COVID Ag Negative Swab 02/05/2025 1:16 PM EDT Aaliyah Watkins MD POINT OF CARE TEST ENTER/E DIT ORDERABLES Final Result * XR Chest 2 Views (02/05/2025 1:05 PM EDT) Anatomical Region Laterality Modality Chest Radiographic Claudia ging 02/05/2025 1:05 PM EDT Narrative 02/05/2025 2:24 PM EDT [address] [address] XRay Report Signed Patient: Kaylynn Miguel MR#: [id number] : 1955 Acct:[id number] Age/Sex: 69 / F ADM Date: 02/05/25 Loc: HO.HHCX Attending Dr: Aaliyah Watkins MD Ordering Physician: Aaliyah Watkins MD Date of Service: 02/05/25 Procedure(s): XR chest 2V Accession Number(s): [id number] cc: Aaliyah Watkins MD EXAMINATION: XR CHEST [...] Arcenio Ricketts MD 02/05/2025 02:21 PM EDT Dictated By: Arcenio Ashford MD Signed By: <Electronically signed by Arcenio Joseph MD in OV> 02/05/25 1421 DD/ 1305 TD/TT: 02/05/25 1320 Shearer Operator: Procedure Note Donotuseinterpreter, Image - 02/05/[address] [address] XRay Report Signed Patient: Kaylynn MiguelMR#: [id number] : 4Acct:[id number] Age/Sex: 69 / FADM Date: 02/05/25 Loc: HO.HHCX Attending Dr: Aaliyah Watkins MD Ordering Physician: Aaliyah Watkins MD Date of Service: 02/05/25 Procedure(s): XR chest 2V Accession Number(s): [id number] cc: Aaliyah Watkins MD EXAMINATION: XR CHEST [...] Arcenio Ricketts MD 02/05/2025 02:21 PM EDT Dictated By: Arcenio Ashford MD Signed By: <Electronically signed by Arcenio Joseph MDin OV> 02/05/25 1421 DD/ 1305 TD/TT: 02/05/25 1320 Shearer Operator: Aaliyah Watkins MD IMG XR PROCEDURES Final [...] TEST ENTER/EDIT OR DERABLES Final Result * Albumin, Random Urine W/Creatinine (02/11/2024 1:53 PM EDT) Pathologist [facility] Creatinine, Urine 47.93 mg/dL [facility] Microalbumin Urine <5.0 mg/L [facility] Microalbum Creatinine Ratio Ur TNP <30 ug/mg cr [facility] Comment:Unable to calculate albumin/creatinine ratio due to lowmicroalbumin or creatinine result. Urine 02/11/2024 1:53 PM EDT 02/11/2024 4:01 PM EDT Madisyn Wolf MD LAB URINE ORDERABLES Final Resul t Performing Organization Address City/[facility]/ZIP Co de Phone Number [facility] [address] [place] [address] [phone] * Hepatitis C Antibody with Reflex to HCV, RNA, Quantitative, Real-Time PCR (02/11/2024 1:53 PM EDT) Pathologist [facility] Hepatitis C Antibody Nonreactive Nonreactive [facility] Comment:Antibodies to HCV no t detected; does not exclude early acuteHCV infection. Blood Venous blood specimen / Unknown 02/11/2024 1:53 PM EDT 02/11/2024 4:09 PM EDT Madisyn Wolf MD LAB BLOOD ORDERABLES Final Resul t [facility] [address] [place] [phone] * DIGITAL BILATERAL SCREEN 1 (03/18/2018 [...] Most Recently Relevant to Health Maintenance Insurance [facility] MEDICARE ADVANTAGE HMO DENTAL - HSN FULL (MEDICAID) [facility] PPO Care Teams Contact Center Associate Relationship Specialty Start Date End Date Madisyn Wolf MD [address] [place] [address] PCP - General Family Medicine 07/02/18 Narendra Storey, PharmD [address] [place] [address] Pharmacist Internal Medicine 09/09/24
--- OUTSIDE RECORDS SUMMARY | 2025-03-23 11:05 | XMS_ITS | Encounter Summary ---
Author Organization [employer] Address [address] [place] [address] 7t [place] [address] Care Team Providers Care Marine Cargo Surveyor Name Role Phone Madisyn Wolf MD Primary Care Provider [phone] Narendra Storey PharmD Unavailable [phone] Reason for Visit * Reason Comments Med Refill Encounter Details Date Type Department Care Team (Late Contact Info) Description 02/02/[address] [facility] [address] [place] [phone] Madisyn Wolf MD [address] [place] [phone] Xerosis cutis Social History Tobacco Use Types Packs/Day Years [...] Upcoming Encounters Date Type Department Care Team ([facility] Contact Info) Description 04/06/2025 3:15 PM EDT Office Visit [facility] [address] [place] [phone] Madisyn Wolf MD [address] [place] [address] 05/07/2025 1:00 PM EST Office Visit [facility] OPTOMETRY [address] [place] [address] Antoinette Harvey, OD [address] [place] [address] 06/22/2025 10:15 AM EST Office Visit [facility] ADULT DENTAL [address] [place] [address] Stephenie Kathleen documented as of this encounter Visit Diagnoses Diagnosis Xerosis cutis Other specified disease of sebaceous glands documented in this encounter Additional Health Concerns Assessment Noted Time PHQ-9 Depression Total Score: 7 07/31/19 23 3:49 PM EST documented as of this encounter Care Teams Marine Cargo Surveyor Relationship Specialty Start Date End Date Madisyn Wolf MD [address] [place] [phone] PCP - General Family Medicine 07/02/18 Narendra Storey, PharmD [address] [place] [address] [phone] Pharmacist Internal Medicine 09/09/24 documented as of this encounter
--- OUTSIDE RECORDS SUMMARY | 2025-03-23 11:05 | XMS_ITS | Encounter Summary ---
Author Organization [employer] Address [address] [facility] 7t [place] [address] Care Team Providers Care Power System Dispatcher Name Role Phone Madisyn Wolf MD Primary Care Provider [phone] Narendra Storey PharmD Unavailable [phone] Reason for Referral * Consultation (Routine) - Authorized Specialty Diagnoses / Procedures Referred By Contac t Referred To Contact Cardiology Diagnoses Cardiomyopathy, unspecified type (CMS/HCC) Madisyn Wolf MD [address] [place] [address] Phone: tel: fax: [address] Phone: tel: fax: Referral ID Status Reason Start Date Expiration Date Visits Requested Visits Authorized [id number] Authorized Specialty Services Required 02/03/2025 02/03/2026 1 1 Encounter Details Date Type Department Care Team (Late st Contact Info) Description 02/03/2025 Orders Only [facility] [address] [place], [place] [phone] Madisyn Wolf MD [address] [place], [place] [phone] Cardiomyopathy, unspecified type (CMS/HCC) (Primary Dx) Social History Tobacco Use Types Packs/Day Years [...] Description 04/06/2025 3:15 PM EDT Office Visit [facility] [address] [place] [address] Madisyn Wolf MD [address] [place] [address] 05/07/2025 1:00 PM EST Office Visit [facility] OPTOMETRY [address] [place] [address] Antoinette Harvey, OD [address] [place] [address] 06/22/2025 10:15 AM EST Office Visit [facility] ADULT DENTAL [address] [place] [address] Stephenie Kathleen Scheduled Referrals Name Type Priority Associated Diagnoses Orde r Schedule Referral to Cardiology Outpatient Referral Routine Cardiomyopathy, unspecified type (CMS/HCC) Expected: 02/03/2025 (Approximate), Expires: 02/03/2026 documented as of this encounter Visit Diagnoses Diagnosis Cardiomyopathy, unspecified type (CMS/HCC)- Primary documented in this encounter Additional Health Concerns Assessment Noted Time PHQ-9 Depression Total Score: 4 12/30/19 25 1:52 PM EDT documented as of this encounter Care Teams Power System Dispatcher Relationship Specialty Start Date End Date Madisyn Wolf MD [address] [place], [place] [phone] PCP - General Family Medicine 07/02/18 Narendra Storey, Elizabeth [address] [place], [place] [phone] Pharmacist Internal Medicine 09/09/24 documented as of this encounter
--- OUTSIDE RECORDS SUMMARY | 2025-03-23 11:06 | XMS_ITS | Encounter Summary ---
Author Organization [employer] Address [address] [facility] 7t [place] [address] Care Team Providers Care Director Of Technology Name Role Phone Madisyn Wolf MD Primary Care Provider [phone] Narendra Storey PharmD Unavailable [phone] Reason for Visit * Reason Comments Med Refill Encounter Details Date Type Department Care Team ([facility] st Contact Info) Description 03/19/2025 Refill [facility] [address] [place], [place] [phone] Madisyn Wolf MD [address] [place], [place] [phone] Routine health maintenance Social History Tobacco Use Types Packs/Day Years [...] Description 04/06/2025 3:15 PM EDT Office Visit [facility] MED[facility] [address] [place] [address] Madisyn Wolf MD [address] [place] [address] 05/07/2025 1:00 PM EST Office Visit [facility] OPTOMETRY [address] [place] [address] Antoinette Harvey, ANGELLA [address] [place] [address] 06/22/2025 10:15 AM EST Office Visit [facility] ADULT DENTAL [address] [place] [address] Stephenie Kathleen documented as of this encounter Visit Diagnoses Diagnosis Routine health maintenance Unspecified examination documented in this encounter Additional Health Concerns Assessment Noted Time PHQ-9 Depression Total Score: 4 12/30/19 25 1:52 PM EDT documented as of this encounter Care Teams Director Of Technology Relationship Specialty Start Date End Date Madisyn Wolf MD [address] [place] [phone] PCP - General Family Medicine 07/02/18 Narendra Storey, FelizD [address] [place], [place] [address] [address] Pharmacist Internal Medicine 09/09/24 documented as of this encounter
--- OUTSIDE RECORDS SUMMARY | 2025-03-23 11:06 | XMS_ITS | Encounter Summary ---
Author Organization [employer] Address 75 [facility] 7t [place] [address] Care Team Providers Care Network Operations Manager Name Role Phone Madisyn Wolf MD Primary Care Provider [phone] Narendra Storey PharmD Unavailable [phone] Reason for Visit * Reason Comments Med Refill Encounter Details Date Type Department Care Team ([facility] st Contact Info) Description 05/16/2023 Refill [facility] MEDICINE [address] [place], [place] [phone] Madisyn Wolf MD [address] [place], [place] [phone] Carpal tunnel syndrome, unspecified laterality Social History Tobacco Use Types Packs/Day Years Used Date Smoking Tobacco: Every Day Cigarettes Passive Smoke Exposure: Current Smokeless Tobacco: Former Alcohol Use Standard Drinks/Week Comments Never 0 (1 standard drink = 0.6 oz pur e alcohol) Depression Answer Date Recorded Patient Health Questionnaire-9 Score 7 07/31/2022 Housing Stability Answer Date Recorded What is [...] Description 04/06/2025 3:15 PM EDT Office Visit [facility] MEDICINE [address] [place] [address] Madisyn Wolf MD [address] [place] [address] 05/07/2025 1:00 PM EST Office Visit [facility] OPTOMETRY [address] [place] [address] Antoinette Harvey OD [address] [place] [address] 06/22/2025 10:15 AM EST Office Visit [facility] ADULT DENTAL [address] [place] [address] Stephenie Kathleen documented as of this encounter Visit Diagnoses Diagnosis Carpal tunnel syndrome, unspecified laterality documented in this encounter Additional Health Concerns Assessment Noted Time PHQ-9 Depression Total Score: 7 07/31/19 23 3:49 PM EST documented as of this encounter Care Teams Network Operations Manager Relationship Specialty Start Date End Date Madisyn Wolf MD [address] [place] [address] PCP - General Family Medicine 07/02/18 Narendra Storey, FelizD [address] [place] [address] Pharmacist Internal Medicine 09/09/24 documented as of this encounter
--- OUTSIDE RECORDS SUMMARY | 2025-03-23 11:06 | XMS_ITS | Encounter Summary ---
Author Organization [employer] Address [address] [place] [address] 7t [place] [address] Care Team Providers Care Derrick Boat Operator Name Role Phone Madisyn Wolf MD Primary Care Provider [phone] Narendra Storey PharmD Unavailable [phone] Encounter Details Date Type Department Care Team (Late st Contact Info) Description 07/12/2022 Orders Only [facility] [address] [place] [address] Therese Joseph, RN [address] [place] [address] Social History Tobacco Use Types Packs/Day Years Used Date Smoking Tobacco: Never Assessed Comments Unknown Sex and Gender Information Value [...] Description 04/06/2025 3:15 PM EDT Office Visit [facility] [address] [place] [address] Madisyn Wolf MD [address] [place] [address] 05/07/2025 1:00 PM EST Office Visit [facility] OPTOMETRY [address] [place] [address] Antoinette Harvey, OD [address] [place] [address] 06/22/2025 10:15 AM EST Office Visit [facility] ADULT DENTAL 230 [place] [address] Stephenie Kathleen documented as of this encounter Visit Diagnoses Not on filedocumented in this encounter Care Teams Derrick Boat Operator Relationship Specialty Start Date End Date Madisyn Wolf MD [address] [place] [address] PCP - General Family Medicine 07/02/18 Narendra Storey, Elizabeth [address] [place] [address] Pharmacist Internal Medicine 09/09/24 documented as of this encounter
--- OUTSIDE RECORDS SUMMARY | 2025-03-23 11:06 | XMS_ITS | Encounter Summary ---
Author Organization [employer] Address 75 [facility] 7t [place] [address] Care Team Providers Care Polyethylene Combiner Name Role Phone Madisyn Wolf MD Primary Care Provider [phone] Narendra Storey PharmD Unavailable Reason for Visit * Reason Onset Date Comments Call Back Request 12/21/2023 Encounter Details Date Type Department Care Team ([facility] Contact Info) Description 12/21/2023 Telephone [facility] MEDICINE 230 [place], [place] [phone] Madisyn Wolf MD [address] [place], [place] [phone] Call Back Request Social History Tobacco Use Types Packs/Day Years [...] AM EDT documented as of this encounter Miscellaneous Notes * Telephone Encounter - Janny Serrano - 12/21/2023 10:05 AM EDT Tc from pt requesting to speak with a nurse in regards to stopping insulin due to sugars being low recently. Pt states is asymptomatic. Please contact pt at [phone] documented in this encounter Plan of Treatment Upcoming Encounters Date Type Department Care Team (Late st Contact Info) Description 04/06/2025 3:15 PM EDT Office Visit [facility] MEDICINE [address] [place] [address] Madisyn Wolf MD 230 [place] [address] 05/07/2025 1:00 PM EST Office Visit [facility] OPTOMETRY [address] [place] [address] Antoinette Harvey OD [address] [place] [address] 06/22/2025 10:15 AM EST Office Visit [facility] ADULT DENTAL 230 [place] [address] Kathleen, Stephenie documented as of this encounter Visit Diagnoses Not on filedocumented in this encounter Additional Health Concerns Assessment Noted Time PHQ-9 Depression Total Score: 6 10/25/19 24 11:14 AM EDT documented as of this encounter Care Teams Polyethylene Combiner Relationship Specialty Start Date End Date Madisyn Wolf MD [address] [place] [address] PCP - General Family Medicine 07/02/18 Narendra Storey, FelizD [address] [place] [address] Pharmacist Internal Medicine 09/09/24 documented as of this encounter
--- OUTSIDE RECORDS SUMMARY | 2025-03-23 11:06 | XMS_ITS | Encounter Summary ---
Author Organization [employer] Address [address] [facility] [address] 7t [place] [address] Care Team Providers Care Commercial Service Technician Name Role Phone Madisyn Wolf MD Primary Care Provider [phone] Narendra Storey PharmD Unavailable [phone] Encounter Details Date Type Department Care Team ([facility] st Contact Info) Description 11/12/2024 Telephone [facility] MEDICINE 230 [place], [place] [phone] Madisyn Wolf MD 230 [place], [place] [phone] Social History Tobacco Use Types Packs/Day Years [...] encounter Miscellaneous Notes * Telephone Encounter - Rylee Gay - 11/12/2024 2:18 PM EDT Tc from [facility] regarding order for MR Cardiac Morphology and Function w/o Contrast. That order can not be done at [facility]. documented in this encounter Plan of Treatment Upcoming Encounters Date Type Department Care Team (Late st Contact Info) Description 04/06/2025 3:15 PM EDT Office Visit [facility] MEDICINE [address] [place] [address] Madisyn Wolf MD 230 [place] [address] 05/07/2025 1:00 PM EST Office Visit [facility] OPTOMETRY [address] [place] [address] Antoinette Harvey, ANGELLA [address] [place] [address] 06/22/2025 10:15 AM EST Office Visit [facility] ADULT DENTAL 230 [place] [address] Stephenie Kathleen documented as of this encounter Visit Diagnoses Not on filedocumented in this encounter Additional Health Concerns Assessment Noted Time PHQ-9 Depression Total Score: 6 04/25/20 24 11:14 AM EDT documented as of this encounter Care Teams Commercial Service Technician Relationship Specialty Start Date End Date Madisyn Wolf MD 230 [place] [address] PCP - General Family Medicine 07/02/18 Narendra Storey, FelizD [address] [place] [address] Pharmacist Internal Medicine 09/09/24 documented as of this encounter
--- OUTSIDE RECORDS SUMMARY | 2025-03-23 11:06 | XMS_ITS | Encounter Summary ---
Author Organization [employer] Address [address] [facility] [address] 7t [place] [address] Care Team Providers Care Data Warehouse Architect Name Role Phone aMdisyn Wolf MD Primary Care Provider [phone] Narendra Storey PharmD Unavailable [phone] Encounter Details Date Type Department Care Team (Late st Contact Info) Description 12/13/2023 Orders Only [facility] MEDICINE [address] [place], [place] [phone] Madisyn Wolf MD 230 [place], [place] [phone] Social History Tobacco Use Types Packs/Day Years [...] Description 04/06/2025 3:15 PM EDT Office Visit [facility] MEDICINE [address] [place] [address] Madisyn Wolf MD [address] [place] [address] 05/07/2025 1:00 PM EST Office Visit [facility] OPTOMETRY [address] [place] [address] Antoinette Harvey, OD [address] [place] [address] 06/22/2025 10:15 AM EST Office Visit [facility] ADULT DENTAL [address] [place] [address] Stephenie Kathleen documented as of this encounter Visit Diagnoses Not on filedocumented in this encounter Additional Health Concerns Assessment Noted Time PHQ-9 Depression Total Score: 6 10/25/19 24 11:14 AM EDT documented as of this encounter Care Teams Data Warehouse Architect Relationship Specialty Start Date End Date Madisyn Wolf MD [address] [place] [address] PCP - General Family Medicine 07/02/18 Narendra Storey, PharmD 230 [place] [address] Pharmacist Internal Medicine 09/09/24 documented as of this encounter
--- OUTSIDE RECORDS SUMMARY | 2025-03-23 11:06 | XMS_ITS | Encounter Summary ---
Author Organization [employer] Address 75 [facility] 7t [place] [address] Care Team Providers Care Pumping Station Supervisor Name Role Phone Madisyn Wolf MD Primary Care Provider [phone] Narendra Storey PharmD Unavailable [phone] Reason for Visit * Reason Comments Med Refill Encounter Details Date Type Department Care Team ([facility] st Contact Info) Description 11/13/2024 Refill [facility] MEDICINE [address] [place], [place] [phone] Narendra Storey, PharmD [address] [place], [place] [phone] Tobacco dependence Social History Tobacco Use Types Packs/Day Years [...] Description 04/06/2025 3:15 PM EDT Office Visit [facility]INE [address] [place] [address] Madisyn Wolf MD [address] [place] [address] 05/07/2025 1:00 PM EST Office Visit [facility] OPTOMETRY [address] [place] [address] Antoinette Harvey, OD [address] [place] [address] 06/22/2025 10:15 AM EST Office Visit [facility] ADULT DENTAL 230 [place] [address] Stephenie Kathleen documented as of this encounter Visit Diagnoses Diagnosis Tobacco dependence Tobacco use disorder documented in this encounter Additional Health Concerns Assessment Noted Time PHQ-9 Depression Total Score: 6 10/25/19 24 11:14 AM EDT documented as of this encounter Care Teams Pumping Station Supervisor Relationship Specialty Start Date End Date Madisyn Wolf MD [address] [place] [address] PCP - General Family Medicine 07/02/18 Narendra Storey, PharmD [address] [place] [address] Pharmacist Internal Medicine 09/09/24 documented as of this encounter
--- OUTSIDE RECORDS SUMMARY | 2025-03-23 11:06 | XMS_ITS | Encounter Summary ---
Author Organization [employer] Address [address] [facility] [address] 7t [place] [address] Care Team Providers Care Director Of Billing Name Role Phone Madisyn Wolf MD Primary Care Provider [phone] Narendra Storey PharmD Unavailable [phone] Reason for Visit * Reason Comments Med Refill Encounter Details Date Type Department Care Team ([facility] st Contact Info) Description 09/18/2024 Refill [facility] [address] [place] [address] Madisyn Wolf MD [address] [place] [address] Social History Tobacco Use Types Packs/Day Years [...] 04/06/2025 3:15 PM EDT Office Visit [facility] MEDICINE [address] [place] [address] Madisyn Wolf MD 230 [place] [address] 05/07/2025 1:00 PM EST Office Visit [facility] OPTOMETRY [address] [place] [address] Antoinette Harvey, OD [address] [place] [address] 06/22/2025 10:15 AM EST Office Visit [facility] ADULT DENTAL [address] [place] [address] Stephenie Kathleen documented as of this encounter Visit Diagnoses Not on filedocumented in this encounter Additional Health Concerns Assessment Noted Time PHQ-9 Depression Total Score: 6 10/25/19 24 11:14 AM EDT documented as of this encounter Care Teams Director Of Billing Relationship Specialty Start Date End Date Madisyn Wolf MD [address] [place] [address] PCP - General Family Medicine 07/02/18 Narendra Storey, PharmD [address] [place] [address] Pharmacist Internal Medicine 09/09/24 documented as of this encounter
--- OUTSIDE RECORDS SUMMARY | 2025-03-23 11:06 | XMS_ITS | Encounter Summary ---
Author Organization [employer] Address 75 [facility] 7t [place] [address] Care Team Providers Care Science And Operations Officer Name Role Phone Madisyn Wolf MD Primary Care Provider [phone] Narendra Storey PharmD Unavailable [phone] Reason for Visit * Reason Onset Date Comments sliding fee ppw appt 03/14/2024 Encounter Details Date Type Department Care Team (Late st Contact Info) Description 03/14/2024 Telephone [facility] ADULT DENTAL 230 [place] [address] Sheng Hills DDS [address] [place], [place] [phone] sliding fee ppw appt Social History Tobacco Use Types Packs/Day Years [...] encounter Miscellaneous Notes * Telephone Encounter - Candida Lezama - 03/14/2024 1:03 PM EDT Patient states that she missed her appt this morning at 10am to bring in sliding fee paperwork. Sheis verifying if there is another time of the day that she is able to come in for appt. Please reachout to patient DR documented in this encounter Plan of Treatment Upcoming Encounters Date Type Department Care Team (Late st Contact Info) Description 04/06/2025 3:15 PM EDT Office Visit [facility] MEDICINE [address] [place] [address] Madisyn Wolf MD 230 [place] [address] 05/07/2025 1:00 PM EST Office Visit [facility] OPTOMETRY [address] [place] [address] Antoinette Harvey OD [address] [place] [address] 06/22/2025 10:15 AM EST Office Visit [facility] ADULT DENTAL [address] [place] [address] Stephenie Kathleen documented as of this encounter Visit Diagnoses Not on filedocumented in this encounter Additional Health Concerns Assessment Noted Time PHQ-9 Depression Total Score: 6 10/25/19 24 11:14 AM EDT documented as of this encounter Care Teams Science And Operations Officer Relationship Specialty Start Date End Date Madisyn Wolf MD 230 [place] [address] PCP - General Family Medicine 07/02/18 Narendra Storey, FelizD 230 [place] [address] Pharmacist Internal Medicine 09/09/24 documented as of this encounter
--- OUTSIDE RECORDS SUMMARY | 2025-03-23 11:06 | XMS_ITS | Encounter Summary ---
Author Organization [employer] Address 75 [facility] 7t [place] [address] Care Team Providers Care Signal Technician Name Role Phone Madisyn Wolf MD Primary Care Provider [phone] Narendra Storey PharmD Unavailable [phone] Encounter Details Date Type Department Care Team (Late st Contact Info) Description 08/28/2023 Orders Only [facility] MEDICINE [address] [place], [place] [phone] Madisyn Wolf MD 230 [place], [place] [phone] Social History Tobacco Use Types Packs/Day Years [...] Description 04/06/2025 3:15 PM EDT Office Visit [facility] MEDICINE [address] [place] [address] Madisyn Wolf MD [address] [place] [address] 05/07/2025 1:00 PM EST Office Visit [facility] OPTOMETRY [address] [place] [address] Antoinette Harvey, OD [address] [place] [address] 06/22/2025 10:15 AM EST Office Visit [facility] ADULT DENTAL [address] [place] [address] Stephenie Kathleen documented as of this encounter Visit Diagnoses Not on filedocumented in this encounter Additional Health Concerns Assessment Noted Time PHQ-9 Depression Total Score: 7 07/31/19 23 3:49 PM EST documented as of this encounter Care Teams Signal Technician Relationship Specialty Start Date End Date Madisyn Wolf MD [address] [place] [address] PCP - General Family Medicine 07/02/18 Narendra Storey, FelizD [address] [place] [address] Pharmacist Internal Medicine 09/09/24 documented as of this encounter
--- OUTSIDE RECORDS SUMMARY | 2025-03-23 11:06 | XMS_ITS | Encounter Summary ---
Author Organization [employer] Address 75 [facility] 7t [place] [address] Care Team Providers Care Residential Caregiver Name Role Phone Madisyn Wolf MD Primary Care Provider [phone] Narendra Storey PharmD Unavailable [phone] Reason for Visit * Reason Comments Med Change Request Encounter Details Date Type Department Care Team ([facility] Contact Info) Description 12/12/2023 Refill [facility] MEDICINE 230 [place], [place] [phone] Madisyn Wolf MD 230 [place], [place] [phone] Social History Tobacco Use Types Packs/Day Years [...] Office Visit [facility] MEDICINE [address] [place] [address] Madisyn Wolf MD 230 [place] [address] 05/07/2025 1:00 PM EST Office Visit [facility] OPTOMETRY [address] [place] [address] Antoinette Harvey, OD [address] [place] [address] 06/22/2025 10:15 AM EST Office Visit [facility] ADULT DENTAL 230 [place] [address] Stephenie Kathleen documented as of this encounter Visit Diagnoses Not on filedocumented in this encounter Additional Health Concerns Assessment Noted Time PHQ-9 Depression Total Score: 6 10/25/19 24 11:14 AM EDT documented as of this encounter Care Teams Residential Caregiver Relationship Specialty Start Date End Date Madisyn Wolf MD [address] [place] [address] PCP - General Family Medicine 07/02/18 Narendra Storey, PharmD 230 [place] [address] Pharmacist Internal Medicine 09/09/24 documented as of this encounter
--- OUTSIDE RECORDS SUMMARY | 2025-03-23 11:06 | XMS_ITS | Encounter Summary ---
Author Organization [employer] Address [address] [facility] [address] 7t [place] [address] Care Team Providers Care Fisher Clam Name Role Phone Madisyn Wolf MD Primary Care Provider [phone] Narendra Storey PharmD Unavailable [phone] Reason for Visit * Reason Comments Med Refill Encounter Details Date Type Department Care Team ([facility] st Contact Info) Description 09/12/2024 Refill [facility] [address] [place] [address] Madisyn Wolf MD [address] [place] [address] Social History Tobacco Use Types Packs/Day Years [...] 3:15 PM EDT Office Visit [facility] MEDICINE [address] [place] [address] Madisyn Wolf MD [address] [place] [address] 05/07/2025 1:00 PM EST Office Visit [facility] OPTOMETRY [address] [place] [address] Antoinette Harvey, OD [address] [place] [address] 06/22/2025 10:15 AM EST Office Visit [facility] ADULT DENTAL [address] [place] [address] Stephenie Kathleen documented as of this encounter Visit Diagnoses Not on filedocumented in this encounter Additional Health Concerns Assessment Noted Time PHQ-9 Depression Total Score: 6 10/25/19 24 11:14 AM EDT documented as of this encounter Care Teams Fisher Clam Relationship Specialty Start Date End Date Madisyn Wolf MD [address] [place] [address] PCP - General Family Medicine 07/02/18 Narendra Storey, PharmD [address] [place] [address] Pharmacist Internal Medicine 09/09/24 documented as of this encounter
--- OUTSIDE RECORDS SUMMARY | 2025-03-23 11:06 | XMS_ITS | Encounter Summary ---
Author Organization [employer] Address 75 [facility] 7t [place] [address] Care Team Providers Care Electrical Engineering Manager Name Role Phone Madisyn Wolf MD Primary Care Provider [phone] Narendra Storey PharmD Unavailable [phone] Encounter Details Date Type Department Care Team (Late st Contact Info) Description 06/19/2022 Orders Only [facility] [address] [place] [address] Shayla Joyce LPN Social History Tobacco Use Types Packs/Day Years [...] Description 04/06/2025 3:15 PM EDT Office Visit [facility] MEDICINE 230 [place] [address] Madisyn Wolf MD [address] [place], [place] [phone] 05/07/2025 1:00 PM EST Office Visit [facility] OPTOMETRY [address] [place] [address] Antoinette Harvey, OD [address] [place] [address] 06/22/2025 10:15 AM EST Office Visit [facility] ADULT DENTAL 230 [place] [address] Stephenie Kathleen documented as of this encounter Visit Diagnoses Not on filedocumented in this encounter Care Teams Electrical Engineering Manager Relationship Specialty Start Date End Date Madisyn Wolf MD [address] [place] [address] PCP - General Family Medicine 07/02/18 Narendra Storey, FelizD [address] [place] [address] Pharmacist Internal Medicine 09/09/24 documented as of this encounter
--- OUTSIDE RECORDS SUMMARY | 2025-03-23 11:06 | XMS_ITS | Encounter Summary ---
Author Organization [employer] Address 75 [facility] 7t [place] [address] Care Team Providers Care Laminator Printed Circuit Boards Name Role Phone Madisyn Wolf MD Primary Care Provider Narendra Storey PharmD Unavailable [phone] Reason for Visit * Reason Onset Date Comments Telephone call 03/19/2025 Encounter Details Date Type Department Care Team ([facility] st Contact Info) Description 03/19/2025 Telephone [facility] MEDICINE [address] [place] [address] Madisyn Wolf MD [address] [place] [address] Telephone call Social History Tobacco Use Types Packs/Day Years [...] encounter Miscellaneous Notes * Telephone Encounter - Therese Joseph RN - 03/20/2025 3:41 PM EDT Scripts sent earlier today. No further action needed at this time * Telephone Encounter - Sreekanth Bingham - 03/19/2025 4:08 PM EDT Patient walked in requesting a refill on the following medications: -D3-1000 25 MCG (1000 UT) capsule -cetirizine (ZyrTEC) 10 MG tablet documented in this encounter Plan of Treatment Upcoming Encounters Date Type Department Care Team (Late st Contact Info) Description 04/06/2025 3:15 PM EDT Office Visit [facility] MEDICINE [address] [place] [address] Madisyn Wolf MD [address] [place] [address] 05/07/2025 1:00 PM EST Office Visit [facility] OPTOMETRY [address] [place] [address] Antoinette Harvey, OD [address] [place] [address] 06/22/2025 10:15 AM EST Office Visit [facility] ADULT DENTAL [address] [place] [address] Stephenie Kathleen documented as of this encounter Visit Diagnoses Not on filedocumented in this encounter Additional Health Concerns Assessment Noted Time PHQ-9 Depression Total Score: 4 12/30/19 25 1:52 PM EDT documented as of this encounter Care Teams Laminator Printed Circuit Boards Relationship Specialty Start Date End Date Madisyn Wolf MD [address] [place] [address] PCP - General Family Medicine 07/02/18 Narendra Storey, FelizD [address] [place], [place] [phone] Pharmacist Internal Medicine 09/09/24 documented as of this encounter
--- OUTSIDE RECORDS SUMMARY | 2025-03-23 11:06 | XMS_ITS | Encounter Summary ---
Author Organization [employer] Address [address] [facility] 7t [place] [address] Care Team Providers Care Instructional Design Specialist Name Role Phone Madisyn Wolf MD Primary Care Provider [phone] Narendra Storey PharmD Unavailable [phone] Reason for Visit * Reason Onset Date Comments lung screening 03/18/2025 Encounter Details Date Type Department Care Team ([facility] st Contact Info) Description 03/18/2025 Telephone [facility] [address] [place], [place] [phone] Madisyn Wolf MD [address] [place], [place] [phone] lung screening Social History Tobacco Use Types Packs/Day Years [...] encounter Miscellaneous Notes * Telephone Encounter - Nicole Serrano [place] - 03/18/2025 3:26 PM EDT Ritu [place] [facility] documented in this encounter Plan of Treatment Upcoming Encounters Date Type Department Care Team (Late st Contact Info) Description 04/06/2025 3:15 PM EDT Office Visit [facility] [address] [place] [address] Madisyn Wolf MD [address] [place] [address] 05/07/2025 1:00 PM EST Office Visit [facility] OPTOMETRY [address] [place] [address] Antoinette Harvey OD [address] [place] [address] 06/22/2025 10:15 AM EST Office Visit [facility] ADULT DENTAL [address] [place] [address] Stephenie Kathleen documented as of this encounter Visit Diagnoses Not on filedocumented in this encounter Additional Health Concerns Assessment Noted Time PHQ-9 Depression Total Score: 4 12/30/19 25 1:52 PM EDT documented as of this encounter Care Teams Instructional Design Specialist Relationship Specialty Start Date End Date Madisyn Wolf MD [address] [place] [address] PCP - General Family Medicine 07/02/18 Narendra Storey, FelizD [address] [place] [address] Pharmacist Internal Medicine 09/09/24 documented as of this encounter
--- OUTSIDE RECORDS SUMMARY | 2025-03-23 11:06 | XMS_ITS | Encounter Summary ---
Author Organization [employer] Address [address] [facility] 7t [place] [address] Care Team Providers Care Quantitative Manager Name Role Phone Madisyn Wolf MD Primary Care Provider [phone] Narendra Storey PharmD Unavailable Reason for Visit * Reason Onset Date Comments patient returning call/please return call 2023 Encounter Details Date Type Department Care Team (Late st Contact Info) Description 05/06/[address] [facility] [address] [place] [address] Sheng Hills DDS [address] [place], [place] [phone] patient returning call/please return call Social History Tobacco Use Types Packs/Day [...] * Telephone Encounter - Candida Lezama - 05/06/2024 4:09 PM EST Patient states that she missed a call for Dr. Hills himself an is returning the call. Please reachout to patient DR documented in this encounter Plan of Treatment Upcoming Encounters Date Type Department Care Team (Late st Contact Info) Description 04/06/2025 3:15 PM EDT Office Visit [facility] [address] [place] [address] Madisyn Wolf MD [address] [place] [address] 05/07/2025 1:00 PM EST Office Visit [facility] OPTOMETRY [address] [place] [address] Antoinette Harvey OD [address] [place] [address] 06/22/2025 10:15 AM EST Office Visit [facility] [address] [place] [address] Stephenie Kathleen documented as of this encounter Visit Diagnoses Not on filedocumented in this encounter Additional Health Concerns Assessment Noted Time PHQ-9 Depression Total Score: 6 10/25/19 24 11:14 AM EDT documented as of this encounter Care Teams Quantitative Manager Relationship Specialty Start Date End Date Madisyn Wolf MD [address] [place] [address] PCP - General Family Medicine 07/02/18 Narendra Storey, FelizD [address] [place] [address] Pharmacist Internal Medicine 09/09/24 documented as of this encounter
--- OUTSIDE RECORDS SUMMARY | 2025-03-23 11:06 | XMS_ITS | Encounter Summary ---
Author Organization [email or web address] Address [address] [facility] [address] 7t [place] [address] Care Team Providers Care Force Dispatcher Name Role Phone Madisyn Wolf MD Primary Care Provider [phone] Narendra Storey PharmD Unavailable [phone] Encounter Details Date Type Department Care Team (Late st Contact Info) Description 12/24/2023 Orders Only [facility] MED[facility]INE [address] [place], [place] [phone] Madisyn Wolf MD [address] [place], [place] [phone] Social History Tobacco Use Types Packs/Day Years [...] Office Visit [facility] [address] [place] [address] Madisyn Wolf MD [address] [place] [address] 05/07/2025 1:00 PM EST Office Visit [facility] OPTOMETRY [address] [place] [address] Antoinette Harvey, OD [address] [place] [address] 06/22/2025 10:15 AM EST Office Visit [facility] ADULT DENTAL [address] [place] [address] Stephenie Kathleen documented as of this encounter Visit Diagnoses Not on filedocumented in this encounter Additional Health Concerns Assessment Noted Time PHQ-9 Depression Total Score: 6 10/25/19 24 11:14 AM EDT documented as of this encounter Care Teams Force Dispatcher Relationship Specialty Start Date End Date Madisyn Wolf MD [address] [place] [address] PCP - General Family Medicine 07/02/18 Narendra Storey, PharmD [address] [place] [address] Pharmacist Internal Medicine 09/09/24 documented as of this encounter
--- OUTSIDE RECORDS SUMMARY | 2025-03-23 11:06 | XMS_ITS | Encounter Summary ---
Author Organization [employer] Address [address] [facility] 7t [place] [address] Care Team Providers Care Grain Scooper Name Role Phone Madisyn Wolf MD Primary Care Provider Narendra Storey PharmD Unavailable [phone] Reason for Referral * Imaging (Routine) - Closed Specialty Diagnoses / Procedures Referred By Contac t Referred To Contact Radiology Diagnoses Breast cancer screening by mammogram Procedures BI Mammogram Screening Tomosynthesis Bilateral Madisyn Wolf MD [address] [place] [address] Phone: tel: fax: [address] Phone: tel: fax: Referral ID Status Reason Start Date Expiration Date Visits Re quested Visits Authorized [id number] Closed 01/08/2025 01/08/2026 1 1 Encounter Details Date Type Department Care Team (Late st Contact Info) Description 01/08/2025 Orders Only [facility] [address] [place], [place] [phone] Madisyn Wolf MD [address] [place], [place] [phone] Breast cancer screening by mammogram (Primary Dx) Social History Tobacco Use Types [...] Description 04/06/2025 3:15 PM EDT Office Visit [facility] [address] [place] [address] Madisyn Wolf MD [address] [place] [address] 05/07/2025 1:00 PM EST Office Visit [facility] OPTOMETRY [address] [place] [address] Cody Harveyothy, OD [address] [place] [address] 06/22/2025 10:15 AM EST Office Visit [facility] ADULT DENTAL [address] [place] [address] Stephenie Kathleen Scheduled Orders Name Type Priority Associated Diagnoses Orde r Schedule BI Mammogram Screening Tomosynthesis Bilateral Imaging Routine Breast cancer screening by mammogram Expected: 01/08/2025, Expires: 03/11/2026 documented as of this encounter Visit Diagnoses Diagnosis Breast cancer screening by mammogram- Primary documented in this encounter Additional Health Concerns Assessment Noted Time PHQ-9 Depression Total Score: 4 12/30/19 25 1:52 PM EDT documented as of this encounter Care Teams Grain Scooper Relationship Specialty Start Date End Date Madisyn Wolf MD [address] [place] [address] PCP - General Family Medicine 07/02/18 Narendra Storey, FelizD [address] [place] [address] Pharmacist Internal Medicine 09/09/24 documented as of this encounter
--- OUTSIDE RECORDS SUMMARY | 2025-03-23 11:06 | XMS_ITS | Encounter Summary ---
Author Organization [employer] Address [address] [facility] [address] 7t [place] [address] Care Team Providers Care Research Scientist Name Role Phone Madisyn Wolf MD Primary Care Provider [phone] Narendra Storey PharmD Unavailable [phone] Encounter Details Date Type Department Care Team (Late st Contact Info) Description 12/13/2023 Orders Only [facility] [address] [place], [place] [phone] Madisyn Wolf MD [address] [place], [place] [phone] Social History Tobacco Use Types Packs/Day Years [...] Description 04/06/2025 3:15 PM EDT Office Visit [facility] [address] [place] [address] Madisyn Wolf MD [address] [place] [address] 05/07/2025 1:00 PM EST Office Visit [facility] OPTOMETRY [address] [place] [address] Antoinette Harvey, OD [address] [place] [address] 06/22/2025 10:15 AM EST Office Visit [facility] ADULT DENTAL [address] [place] [address] Stephenie Kathleen documented as of this encounter Visit Diagnoses Not on filedocumented in this encounter Additional Health Concerns Assessment Noted Time PHQ-9 Depression Total Score: 6 10/25/19 24 11:14 AM EDT documented as of this encounter Care Teams Research Scientist Relationship Specialty Start Date End Date Madisyn Wolf MD [address] [place] [address] PCP - General Family Medicine 07/02/18 Narendra Storey, PharmD [address] [place] [address] Pharmacist Internal Medicine 09/09/24 documented as of this encounter
--- OUTSIDE RECORDS SUMMARY | 2025-03-23 11:06 | XMS_ITS | Encounter Summary ---
Author Organization [employer] Address 75 [facility] 7t [place] [address] Care Team Providers Care Extrusion Engineer Name Role Phone Madisyn Wolf MD Primary Care Provider [phone] Narendra Storey PharmD Unavailable [phone] Reason for Referral * Consultation (Urgent) - Closed Specialty Diagnoses / Procedures Referred By Contac t Referred To Contact Dermatology Diagnoses Vitiligo Madisyn Wolf MD [address] [place] [address] Phone: tel: fax: [facility] [address] [facility] [address] [place] [address] Phone: tel: fax: Referral ID Status Reason Start Date Expiration Date V isits Requested Visits Authorized [id number] Closed Specialty Services Required 09/28/2023 09/27/2024 1 1 Encounter Details Date Type Department Care Team (Late st Contact Info) Description 09/28/2023 Orders Only [facility] [address] [place] [address] Madisyn Wolf MD [address] [place], [place] [phone] Vitiligo (Primary Dx) Social History Tobacco Use Types [...] Office Visit [facility] [address] [place] [address] Madisyn Wolf MD [address] [place] [address] 05/07/2025 1:00 PM EST Office Visit [facility] OPTOMETRY [address] [place] [address] Antoinette Harvey, ANGELLA [address] [place] [address] 06/22/2025 10:15 AM EST Office Visit [facility] ADULT DENTAL [address] [place] [address] Stephenie Kathleen Scheduled Referrals Name Type Priority Associated Diagnoses Order Schedule Referral to Dermatology Outpatient Referral Urgent Vitiligo Expected: 09/28/2023 (Approximate), Expires: 09/27/2024 documented as of this encounter Visit Diagnoses Diagnosis Vitiligo- Primary documented in this encounter Additional Health Concerns Assessment Noted Time PHQ-9 Depression Total Score: 7 07/31/19 23 3:49 PM EST documented as of this encounter Care Teams Extrusion Engineer Relationship Specialty Start Date End Date Madisyn Wolf MD [address] [place] [address] PCP - General Family Medicine 07/02/18 Narendra Storey, FelizD [address] [place] [address] Pharmacist Internal Medicine 09/09/24 documented as of this encounter
--- OUTSIDE RECORDS SUMMARY | 2025-03-23 11:06 | XMS_ITS | Encounter Summary ---
Author Organization [employer] Address [address] [facility] 7t [place] [address] Care Team Providers Care Garage Door Hanger Name Role Phone Madisyn Wolf MD Primary Care Provider [phone] Narendra Storey PharmD Unavailable [phone] Reason for Visit * Reason Comments Med Refill Encounter Details Date Type Department Care Team ([facility] st Contact Info) Description 12/08/2024 Refill [facility] MED[facility]INE [address] [place], [place] [phone] Madisny Wolf MD [address] [place], [place] [phone] Allergic rhinitis, unspecified seasonality, unspecified trigger Social History Tobacco Use Types Packs/Day Years [...] 04/06/2025 3:15 PM EDT Office Visit [facility] MED[facility]INE [address] [place] [address] Madisyn Wolf MD [address] [place] [address] 05/07/2025 1:00 PM EST Office Visit [facility] OPTOMETRY [address] [place] [address] Antoinette Harvey, OD [address] [place] [address] 06/22/2025 10:15 AM EST Office Visit [facility] ADULT DENTAL [address] [place] [address] Stephenie Kathleen documented as of this encounter Visit Diagnoses Diagnosis Allergic rhinitis, unspecified seasonality, unspecified trigger documented in this encounter Additional Health Concerns Assessment Noted Time PHQ-9 Depression Total Score: 6 10/25/19 24 11:14 AM EDT documented as of this encounter Care Teams Garage Door Hanger Relationship Specialty Start Date End Date Madisyn Wolf MD [address] [place] [address] PCP - General Family Medicine 07/02/18 Narendra Storey, FelizD [address] [place] [address] Pharmacist Internal Medicine 09/09/24 documented as of this encounter
--- OUTSIDE RECORDS SUMMARY | 2025-03-23 11:06 | XMS_ITS | Encounter Summary ---
Author Organization [employer] Address [address] [facility] [address] 7t [place] [address] Care Team Providers Care Dedicated Owner Operator Name Role Phone Madisyn Wolf MD Primary Care Provider [phone] Narendra Storey PharmD Unavailable [phone] Reason for Visit * Reason Comments Med Refill Encounter Details Date Type Department Care Team ([facility] st Contact Info) Description 05/26/2024 Refill [facility] [address] [place] [address] Madisyn Wolf MD [address] [place] [address] Social History Tobacco Use Types Packs/Day Years [...] 3:15 PM EDT Office Visit [facility] [address] [place] [address] Madisyn Wolf MD [address] [place] [address] 05/07/2025 1:00 PM EST Office Visit [facility] OPTOMETRY [address] [place] [address] Antoinette Harvey, OD [address] [place] [address] 06/22/2025 10:15 AM EST Office Visit [facility] ADULT DENTAL [address] [place] [address] Stephenie Kathleen documented as of this encounter Visit Diagnoses Not on filedocumented in this encounter Additional Health Concerns Assessment Noted Time PHQ-9 Depression Total Score: 6 10/25/19 24 11:14 AM EDT documented as of this encounter Care Teams Dedicated Owner Operator Relationship Specialty Start Date End Date Madisyn Wolf MD [address] [place] [address] PCP - General Family Medicine 07/02/18 Narendra Sotrey, PharmD [address] [place] [address] Pharmacist Internal Medicine 09/09/24 documented as of this encounter
--- OUTSIDE RECORDS SUMMARY | 2025-03-23 11:06 | XMS_ITS | Encounter Summary ---
Author Organization [employer] Address [address] [facility] [address] 7t [place] [address] Care Team Providers Care Climatology Teacher Name Role Phone Madisyn Wolf MD Primary Care Provider [phone] Narendra Storey PharmD Unavailable [phone] Encounter Details Date Type Department Care Team ([facility] st Contact Info) Description 03/19/2025 Telephone [facility] MED[facility]INE [address] [place], [place] [phone] Madisyn Wolf MD [address] [place], [place] [phone] Social History Tobacco Use Types Packs/Day Years [...] encounter Miscellaneous Notes * Telephone Encounter - Michelle Bingham - 03/19/2025 2:22 PM EDT Pharmacy [facility] attempted outreach call on 03/19/25 for CDTM - Diabetes appointment; however, unable to reach patient. LVM for patient to contact Michelle Bingham at [phone]. documented in this encounter Plan of Treatment Upcoming Encounters Date Type Department Care Team ([facility] st Contact Info) Description 04/06/2025 3:15 PM EDT Office Visit [facility] MED[facility] [address] [place] [address] Madisyn Wolf MD [address] [place] [address] 05/07/2025 1:00 PM EST Office Visit [facility] OPTOMETRY [address] [place] [address] Atnoinette Harvey OD [address] [place] [address] 06/22/2025 10:15 AM EST Office Visit [facility] ADULT DENTAL [address] [place] [address] Stephenie Kathleen documented as of this encounter Visit Diagnoses Not on filedocumented in this encounter Additional Health Concerns Assessment Noted Time PHQ-9 Depression Total Score: 4 12/30/19 25 1:52 PM EDT documented as of this encounter Care Teams Climatology Teacher Relationship Specialty Start Date End Date Madisyn Wolf MD [address] [place], [place] [phone] PCP - General Family Medicine 07/02/18 Narendra Storey, FelizD [address] [place], [place] [phone] Pharmacist Internal Medicine 09/09/24 documented as of this encounter
== END 2025-03-23 10:20 | disposition home or self-care (01) ==
PROVIDERS: PCP Family Medicine; Visit Provider Internal Medicine Cardiovascular Disease
DX: I42.9 Cardiomyopathy, unspecified (principal)
CPT/HCPCS: 93010; 99214

== ENCOUNTER → 2025-03-23 09:24 | Outpatient (BNVA) | payer MEDICARE, SELFPAY | PROVIDERS: PCP Family Medicine; Visit Provider Internal Medicine Cardiovascular Disease | DX: I42.9 Cardiomyopathy, unspecified (principal) | CPT/HCPCS: 93005; 99212 ==

== ENCOUNTER 2025-04-17 10:38 | Outpatient (REF) | payer MEDICARE, SELFPAY ==
--- NOTE | ~2025-04-17 | XR_ITS ---
EXAMINATION: XR LUMBOSACRAL SPINE CLINICAL INFORMATION: Right-sided back pain without sciatica x2 months, intermittent. COMPARISON: None available. TECHNIQUE: Three views of the lumbosacral spine. FINDINGS: There is a mild right convex scoliosis, apex at L3. There is a normal lordosis. There is no fracture, or suspicious bone lesion. There is a minimal superior endplate concavity of L3. No gross compression deformity. There is a trace degenerative anterolisthesis of L4 on L5. Alignment is otherwise anatomic. Spaces demonstrate severe degeneration at L5-S1. There is otherwise only mild degeneration. Facets are normally aligned. There are degenerative hypertrophic facet changes at L4-S1. No pars defects evident. Soft tissues demonstrate vascular calcifications. XR/XR lumbar spine 2-3V IMPRESSION: 1. No acute bony abnormalities. 2. Likely chronic minimal concavity of the superior endplate of L3. 3. Degenerative disc changes, severe at L5-S1. Degenerative facet changes L4-S1. Electronically signed by: Tirso Connelly MD 04/17/2025 10:54 AM EDT
--- OUTSIDE RECORDS SUMMARY | 2025-04-17 13:00 | XMS_ITS | Data Portability ---
Author Organization [place] - [facility], Allergy Address [address] [facility] [address] [place] [address] Care Team Providers Care Exhibits Coordinator Name Role Phone GERBER GONZALEZ Primary Care Provider [phone] Assessment Encounter Date Assessment Date Assessment LastModified by Organization Details LastModified Time 02/28/2024 02/28/2024 Patient has been concerned for several months regarding enlargement of the right submandibular gland. She denies eating, drinking or swallowing difficulties. CT scan in May showed some enhancement of the left tonsil and a small left level 2 lymph node. Both those areas appear normal on physical exam today. The salivary glands are slightly asymmetric with the right one being a little bit larger but no discrete masses noted. I have just an MRI scan with gadolinium for better delineation manuel Not available 02/28/2024 10:40:54 Plan of Treatment Reminders Order Date Submit Date Provider Last Modified By Organization Details Last Modified Time Details Appointments None recorded. Lab None recorded. Referral None recorded. Procedures None recorded. Surgeries None recorded. Imaging MRI, neck, w/wo contrast - CT scan neck at [place] 2023 024 [facility] ([facility]), [address] [facility], [place], [address], 12:04:54 Medication Orders None recorded. Patient TargetsNo targets recorded. Patient InstructionsNo instructions recorded. Reason for Referral None Reported. Results Created Date Observation Date Name Description Value Unit Range Abnormal Flag Note LastModifiedBy Organization Detail LastModifiedTime 02/19/20 24 05/10/2023 imagi ng/di agnos tic resul t No observ ation record ed. [email or web address] Not Available 15:56:42 02/19/2005/18/2023 imagi ng/di odalysos tic resul t No observ ation record ed. [email or web address] Not Available 15:56:45 Result Notes None recorded. 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 4 10:41:13 Problem Notes None recorded. Procedures Surgical History Date Name Laterality Status Provider Name and Address Organization Details Recorded Time 02/28/20 Fiberoptic Laryngoscopy (Comprehensive) completed DANICA RODRIGUEZ MD [address] [address], [place], [address], [facility] 02/28/2024 10:43:52 Imaging Results None recorded. Procedure Notes None recorded. Medical Equipment None Reported. Medications Name Sig Start Date Stop Date Status Note LastModified by Organization Details LastModified Time cyclobenzapr ine 10 mg tablet TAKE 1/2 TABLET BY MOUTH AT BEDTIME NEEDED FOR MUSCLE SPASMS active Not Available Not Available No t Available buspirone 5 mg tablet TAKE 1 TABLET BY MOUTH TWICE DAILY active Not Available Not Available No t Available fluticasone 250 mcg-salmeter ol 50 mcg/dose blistr powdr for inhalation INHALE 1 PUFF BY MOUTH TWICE DAILY IN THE MORNING AND IN THE EVENING 12 HOURS APART RINSE MOUTH AFTER USING. active Not Available Not Available No t Available cetirizine 10 mg tablet TAKE 1 TABLET BY MOUTH EVERY DAY active Not Available Not Available No t Available cromolyn 4 % eye drops APPLY 1 DROP TO AFFECTED EYE(S) FOUR TIMES DAILY active Not Available Not Available Not Available omeprazole 40 mg capsule,pao yed release TAKE 1 CAPSULE BY MOUTH BEFORE BREAKFAST. DO NOT BREAK, CRUSH, DISSOLVE OR CHEW. active Not Available Not Available No t Available Nicotrol 10 mg inhalation cartridge INHALE 1 CARTRIDGE 6 TO 16 TIMES DAILY DIRECTED FOR SMOKING CESSATION. USE AT LEAST 6 TIMES DAILY FOR 3-6 WEEKS, NO MORE THAN 16 CARTRIDGES DAILY. active Not Available Not Available No t Available ketorolac 0.5 % eye drops PLACE 1 DROP IN THE AFFECTED EYE THREE TIMES DAILY DIRECTED STARTING 2 DAYS BEFORE SURGERY active Not Available Not Available No t Available hydrocortiso ne 2.5 % topical cream with perineal applicator APPLY RECTALLY DIRECTED TWICE DAILY active Not Available Not Available Not Available Ear Wax Removal Drops 6.5 % APPLY 5-10 DROPS IN THE LEFT EAR TWICE DAILY FOR FOUR DAYS active Not Available Not Available No t Available ibuprofen 400 mg tablet TAKE 1 OR 2 TABLETS BY MOUTH EVERY EIGHT TO TWELVE HOURS NEEDED active Not Available Not Available No t Available montelukast 10 mg tablet TAKE 1 TABLET BY MOUTH EVERY EVENING active Not Available Not Available No t Available ammonium lactate 12 % topical cream APPLY TO THE AFFECTED AREA(S) EVERY DAY NEEDED active Not Available Not Available No t Available gabapentin 100 mg capsule TAKE 1 TO 2 CAPSULES BY MOUTH AT BEDTIME active Not Available Not Available No t Available lisinopril 2.5 mg tablet TAKE 1 TABLET BY MOUTH EVERY DAY active Not Available Not Available No t Available naproxen 500 mg tablet TAKE 1 TABLET BY MOUTH TWICE DAILY IN THE MORNING AND AT BEDTIME NEEDED FOR PAIN active Not Available Not Available No t Available hydroxyzine pamoate 25 mg capsule TAKE 1 CAPSULE BY MOUTH EVERY 8 HOURS NEEDED FOR ITCHING active Not Available Not Available No t Available Vitamin D3 25 mcg (1,000 unit) capsule TAKE 1 CAPSULE BY MOUTH EVERY DAY active Not Available Not Available No t Available Allergy Relief (loratadine) 10 mg tablet TAKE 1 TABLET BY MOUTH EVERY DAY active Not Available Not Available No t Available Premarin 0.625 mg/gram vaginal cream INSERT 0.5 GRAM VAGINALLY TWICE A WEEK DIRECTED active Not Available Not Available No t Available Alcohol Prep Pads USE TO TEST BLOOD SUGAR active Not Available Not Available Not Available duloxetine 60 mg capsule,pao yed release TAKE 1 CAPSULE BY MOUTH EVERY DAY active Not Available Not Available No t Available FreeStyle Lite Strips TEST BLOOD SUGAR FOUR TIMES DAILY active Not Available Not Available Not Available Lantus Solostar U-100 Insulin 100 unit/mL (3 mL) subcutaneous pen INJECT 16 UNITS SUBCUTANEOU SLY EVERY DAY, INCREASE BY 2 UNITS EVERY 3 DAYS UNTIL FASTING BLOOD GLUCOSE IS BETWEEN 80 AND 130 active Not Available Not Available No t Available diclofenac 1 % topical gel APPLY 2 GRAMS TOPICALLY TO AFFECTED AREA(S) THREE TIMES DAILY IN THE MORNING, AT NOON, AND AT BEDTIME NEEDED FOR PAIN active Not Available Not Available No t Available TRUEplus Lancets 33 gauge TEST BLOOD SUGAR 4 TIMES A DAY active Not Available Not Available Not Available Trulicity 1.5 mg/0.5 mL subcutaneous pen injector INJECT ONE PEN (=1.5MG) SUBCUTANEOU SLY ONCE A WEEK DIRECTED active Not Available Not Available No t Available Trulicity 0.75 mg/0.5 mL subcutaneous pen injector INJECT ONE PEN (=0.75MG) SUBCUTANEOU SLY ONCE A WEEK DIRECTED active Not Available Not Available No t Available Pentips Pen Needle 32 gauge x 5/32 USE DIRECTED EVERY DAY WITH lantus solostar active Not Available Not Available No t Available FreeStyle Ron 2 Sensor kit USE DIRECTED AND CHANGE EVERY 14 DAYS active Not Available Not Available No t Available FreeStyle Ron 2 [place] USE DIRECTED active Not Available Not Available No t Available Opzelura 1.5 % topical cream APPLY A THIN LAYER TOPICALLY TO AFFECTED AREA(S) TWICE DAILY, DO NOT EXCEED 60g PER WEEK OR 100g PER TWO WEEKS active Not Available Not Available No t Available Vitals Date Recorded Body height Body mass index (BMI) Body weight Provider Name and Address Organization Details Last Updated DateTime 02/28/2024 152.4 cm 24.4 kg/m2 24402.05 g Rodo Fitzgerald [place] - [facility] 02/28/2024 09:58:25 Social History Question Answer Notes LastModified by Organizat ion Details LastModified Time Tobacco Smoking Status Current Every Day Smoker DANICA RODRIGUEZ MD [address] [place] [address], [address], [place] - [facility] 02/28/2024 10:38:58 Which Illicit Or Recreational Drugs Have You Used? Marijuana manuel Information not available 02/28/2024 What Is Your Current Pack Years? 10-[facility] Information not available 02/28/2024 How Much Tobacco Do You Smoke? 0.5 PPD Information not available 02/28/2024 How Many Years Have You Smoked Tobacco? 15 Information not available 02/28/2024 Sex: Unknown Functional Status Question Answer Note LastModified by Organizat ion Details LastModified Time Do you use any illicit or recreational drugs? Yes Information not available 02/28/2024 Mental Status None recorded. Family History Nothing Reported. Medical History No medical history recorded. Gynecological HistoryNo gynecological history recorded. Obstetrics History GPAL:G 0 P 0 0 0 0 Past Encounters Encounter ID Performer Location Encounter Start Date Encounter Closed Date Diagnosis/Indication Diagnosis SNOMED-CT Code Diagnosis ICD10 Code Diagnosis IMO Codes Diagnosis Note [id number] DANICA OLIVEROS MD [facility] [address] [address] 02/28/2024 09:46:41 02/28/2024 10:50:01 Mass of neck 840007694 R22.1 Neoplasm o f uncertain behavior of major salivary gland 651048374 D37.039 Health Concerns Section Related Observation LastModified by Organization Detai ls LastModified Time None Recorded Concern Status LastModified by Organization Details LastModified Time None Recorded Advance Directives Directive None Recorded Payers Insurance Date Sequence Insurance Name Policy Number Policy Fox Covered Member ID Fox Member ID Guarantor Name 02/28/2024 1 [facility] - DOS ON OR AFTER 2022 - MEDICARE ADVANTAGE [place] & [place] (MEDICARE REPLACEMENT/A DVANTAGE - PPO) Kaylynn Miguel [id number] Kaylynn Miguel 02/28/2024 2 [place] [employer] Kaylynn Miguel [id number] Kaylynn Miguel 04/28/2024 2 [place] [facility] Kaylynn Miguel [id number] Kaylynn Miguel Notes Date Note Type Note Provider Name and Address Organization Details Recorded Time 02/28/2024 text/html Patient seen for over a year of swelling in the right submandibular region. She denies any change in the swelling with eating, drinking or swallowing. Denies any difficulty eating drinking or swallowing. Denies any pain in her throat. No earache. She had a CAT scan at [facility] in May which showed some enhancement of the left tonsil and a small left level 2 lymph node. She has a history of smoking 1/2 to 1 pack/day for about 20 years DANICA RODRIGUEZ MD [address] [place] [address], [place], [address], [place] - [facility] 02/28/2024 10:44:08 OBGyn Episode No OBEpisode recorded.
== END 2025-04-17 10:39 | disposition home or self-care (01) ==
LOC: HO.HHCX 10:38
PROVIDERS: Visit Provider Family Medicine
DX: M54.50 Low back pain, unspecified (principal)
CPT/HCPCS: 72100

== ENCOUNTER → 2025-04-17 10:39 | Outpatient (BNV) | payer MEDICARE, SELFPAY | PROVIDERS: Visit Provider Radiology Diagnostic Radiology | DX: M51.370 Other intervertebral disc degeneration, lumbosacral region with discogenic back pain only (principal) | CPT/HCPCS: 72100 ==